=== PATIENT | female | born 1960 | race Asian ===

== ENCOUNTER → 2020-12-31 15:11 | Outpatient (BNVA) | payer OTHER, SELFPAY | PROVIDERS: PCP Internal Medicine; Visit Provider Internal Medicine | DX: E78.5 Hyperlipidemia, unspecified (principal); R07.2 Precordial pain; E11.8 Type 2 diabetes mellitus with unspecified complications; I10 Essential (primary) hypertension | CPT/HCPCS: 93005 ==

== ENCOUNTER → 2021-07-21 14:02 | Outpatient (BNVA) | payer OTHER, SELFPAY | PROVIDERS: PCP Internal Medicine; Visit Provider Internal Medicine Endocrinology, Diabetes & Metabolism | DX: E11.65 Type 2 diabetes mellitus with hyperglycemia (principal); Z79.4 Long term (current) use of insulin; Z79.84 Long term (current) use of oral hypoglycemic drugs | CPT/HCPCS: 82947 ==

== ENCOUNTER → 2021-08-25 12:17 | Outpatient (BNVA) | payer OTHER, SELFPAY | PROVIDERS: PCP Internal Medicine; Visit Provider Dietitian, Registered | DX: E11.8 Type 2 diabetes mellitus with unspecified complications (principal) | CPT/HCPCS: 97802 ==

== ENCOUNTER → 2021-09-08 09:10 | Outpatient (BNVA) | payer OTHER, SELFPAY | PROVIDERS: PCP Internal Medicine; Visit Provider Registered Nurse Diabetes Educator | DX: E11.8 Type 2 diabetes mellitus with unspecified complications (principal) | CPT/HCPCS: 99211 ==

== ENCOUNTER → 2021-09-22 12:29 | Outpatient (BNVA) | payer OTHER, SELFPAY | PROVIDERS: PCP Internal Medicine; Visit Provider Dietitian, Registered | DX: E11.8 Type 2 diabetes mellitus with unspecified complications (principal) | CPT/HCPCS: 97803 ==

== ENCOUNTER 2021-10-19 09:46 | Outpatient (REF) | payer MEDICARE, MEDICAID, SELFPAY ==
[2021-10-19 11:52] LABS: Cholesterol 125 mg/dL; HDL Cholesterol 43 mg/dL; LDL Cholesterol Calculated 70 mg/dl; Triglycerides 63 mg/dL
[2021-10-19 12:35] LABS: Creatinine Urine 173.66 mg/dL; Microalbum/Creatinine Ratio Ur 6.3 ug/mg cr
[2021-10-22 15:22] LABS: Glutamic acid decarboxylase Ab <5 IU/mL (<5)
== END 2021-10-19 09:47 | disposition home or self-care (01) ==
LOC: HO.WFDLDS 09:46
PROVIDERS: Visit Provider Internal Medicine Endocrinology, Diabetes & Metabolism
DX: E11.8 Type 2 diabetes mellitus with unspecified complications (principal)
CPT/HCPCS: 36415; 80061; 82043; 86341

== ENCOUNTER → 2021-10-21 10:25 | Outpatient (BNVA) | payer MEDICARE, MEDICAID, SELFPAY | PROVIDERS: PCP Internal Medicine; Visit Provider Internal Medicine Endocrinology, Diabetes & Metabolism | DX: E11.8 Type 2 diabetes mellitus with unspecified complications (principal) | CPT/HCPCS: 82947; 99212 ==

== ENCOUNTER → 2021-10-27 15:08 | Outpatient (BNVA) | payer MEDICARE, MEDICAID, SELFPAY | PROVIDERS: PCP Internal Medicine; Visit Provider Registered Nurse Diabetes Educator | DX: E11.8 Type 2 diabetes mellitus with unspecified complications (principal) | CPT/HCPCS: 99211 ==

== ENCOUNTER → 2021-11-24 10:14 | Outpatient (BNVA) | payer MEDICARE, MEDICAID, SELFPAY | PROVIDERS: PCP Internal Medicine; Visit Provider Registered Nurse Diabetes Educator | DX: E11.8 Type 2 diabetes mellitus with unspecified complications (principal); I10 Essential (primary) hypertension; E78.5 Hyperlipidemia, unspecified; Z79.4 Long term (current) use of insulin | CPT/HCPCS: 99211 ==

== ENCOUNTER → 2021-12-01 13:18 | Outpatient (BNVA) | payer MEDICARE, MEDICAID, SELFPAY | PROVIDERS: PCP Internal Medicine; Visit Provider Dietitian, Registered | DX: E11.8 Type 2 diabetes mellitus with unspecified complications (principal) | CPT/HCPCS: 97802 ==

== ENCOUNTER → 2022-01-22 14:17 | Outpatient (BNVA) | payer MEDICARE, MEDICAID, SELFPAY | PROVIDERS: PCP Internal Medicine; Visit Provider Registered Nurse Diabetes Educator | DX: E11.8 Type 2 diabetes mellitus with unspecified complications (principal) | CPT/HCPCS: 99211 ==

== ENCOUNTER 2022-02-23 08:40 | Outpatient (REF) | payer MEDICARE, MEDICAID, SELFPAY ==
[2022-02-23 12:13] LABS: Glucose Fasting 129 mg/dL (60-99)
== END 2022-02-23 08:41 | disposition home or self-care (01) ==
LOC: HO.WFDLDS 08:40
PROVIDERS: Visit Provider Internal Medicine Endocrinology, Diabetes & Metabolism
DX: E11.8 Type 2 diabetes mellitus with unspecified complications (principal)
CPT/HCPCS: 36415; 82947

== ENCOUNTER → 2022-02-24 15:21 | Outpatient (BNVA) | payer MEDICARE, MEDICAID, SELFPAY | PROVIDERS: PCP Internal Medicine; Visit Provider Internal Medicine Endocrinology, Diabetes & Metabolism | DX: E11.8 Type 2 diabetes mellitus with unspecified complications (principal); Z79.84 Long term (current) use of oral hypoglycemic drugs; Z79.4 Long term (current) use of insulin | CPT/HCPCS: 82947; 83036; 99212 ==

== ENCOUNTER → 2022-03-05 14:09 | Outpatient (BNVA) | payer MEDICARE, MEDICAID, SELFPAY | PROVIDERS: PCP Internal Medicine; Visit Provider Registered Nurse Diabetes Educator | DX: E11.8 Type 2 diabetes mellitus with unspecified complications (principal); I10 Essential (primary) hypertension; E78.5 Hyperlipidemia, unspecified | CPT/HCPCS: 99211 ==

== ENCOUNTER → 2022-04-06 14:12 | Outpatient (BNVA) | payer MEDICARE, MEDICAID, SELFPAY | PROVIDERS: PCP Internal Medicine; Visit Provider Registered Nurse Diabetes Educator | DX: E11.8 Type 2 diabetes mellitus with unspecified complications (principal) | CPT/HCPCS: 99211 ==

== ENCOUNTER 2022-05-05 10:41 | Outpatient (REF) | payer MEDICARE, MEDICAID, SELFPAY ==
[2022-05-05 14:20] LABS: Anion Gap 18 (12-20); Blood Urea Nitrogen 18 mg/dL (9-16); Calcium 10.3 mg/dL (8.4-10.2); Carbon Dioxide 22 mmol/L (22-29); Chloride 105 mmol/L (96-108); Estimated Glomerular Filt Rate 57; Glucose Random 134 mg/dL (60-115); Potassium 4.5 mmol/L (3.3-5.1); Sodium 140 mmol/L (135-145)
== END 2022-05-05 10:42 | disposition home or self-care (01) ==
LOC: HO.WFDLDS 10:41
PROVIDERS: Visit Provider Internal Medicine Endocrinology, Diabetes & Metabolism
DX: E11.8 Type 2 diabetes mellitus with unspecified complications (principal)
CPT/HCPCS: 36415; 80048

== ENCOUNTER → 2022-05-06 15:17 | Outpatient (BNVA) | payer MEDICARE, MEDICAID, SELFPAY | PROVIDERS: PCP Internal Medicine; Visit Provider Internal Medicine Endocrinology, Diabetes & Metabolism | DX: E11.8 Type 2 diabetes mellitus with unspecified complications (principal); Z79.85 Long-term (current) use of injectable non-insulin antidiabetic drugs; Z79.4 Long term (current) use of insulin; Z79.84 Long term (current) use of oral hypoglycemic drugs | CPT/HCPCS: 82947; 99212 ==

== ENCOUNTER → 2022-07-05 09:10 | Outpatient (BNVA) | payer MEDICARE, MEDICAID, SELFPAY | PROVIDERS: PCP Internal Medicine; Visit Provider Dietitian, Registered | DX: E11.8 Type 2 diabetes mellitus with unspecified complications (principal); Z71.3 Dietary counseling and surveillance | CPT/HCPCS: 97803 ==

== ENCOUNTER → 2022-08-16 08:03 | Outpatient (BNVA) | payer MEDICARE, MEDICAID, SELFPAY | PROVIDERS: PCP Internal Medicine; Visit Provider Registered Nurse Diabetes Educator | DX: E11.8 Type 2 diabetes mellitus with unspecified complications (principal); Z79.4 Long term (current) use of insulin | CPT/HCPCS: 99211 ==

== ENCOUNTER → 2022-09-01 12:21 | Outpatient (BNVA) | payer MEDICARE, MEDICAID, SELFPAY | PROVIDERS: PCP Internal Medicine; Visit Provider Internal Medicine Endocrinology, Diabetes & Metabolism | DX: E11.8 Type 2 diabetes mellitus with unspecified complications (principal) | CPT/HCPCS: 82947; 83036; 99212 ==

== ENCOUNTER 2022-11-01 10:30 | Outpatient (AMB) | payer MEDICARE, MEDICAID, SELFPAY ==
[2022-11-01 10:36] VITALS: BMI 21.3
--- NOTE | 2022-11-01 10:36 | A.OFFVIS_ITS ---
Intake VS Expanded 11/01/22 10:36 Height 5 ft 1 in Weight 112 lb 14.027 oz BMI 21.3 Intake Visit Reasons: T2DM Allergies alogliptin Allergy (Unknown, Verified 09/01/22 12:35) contipation sitagliptin [Januvia] Allergy (Unknown, Verified 09/01/22 12:35) vomiting HPI Nutrition Presentation Details Pt presents for MNT for Type 2 DM Appt was conducted via interpreting services language : LAnguage Tamil, document preparer microfilming # [id number] Pt reports having decreased appetite and also reports she was recently in [place] and was more physically active Pt reports typical meal B: Roti with butter and tea L: rice, chicken ,soup D: same as lunch or chicken and salad snck: fruit or crackers denies taking MVI, iron suppl or b12 supplement Most Recent Diabetes Results: Creatinine 0.98 mg/dL (0.5-1.4) 05/05/22 Blood Urea Nitrogen 18 mg/dL (9-16) H 05/05/22 Sodium 140 mmol/L (135-145) 05/05/22 Potassium 4.5 mmol/L (3.3-5.1) 05/05/22 Chloride 105 mmol/L (96-108) 05/05/22 Carbon Dioxide 22 mmol/L (22-29) 05/05/22 Calcium 10.3 mg/dL (8.4-10.2) H 05/05/22 [facility] Medical History (Updated 11/02/22 @ 13:56 by Kaitlynn Milton, RD, LDN) Essential hypertension Hyperlipidemia, unspecified Type 2 diabetes mellitus with unspecified complications Surgical History No pertinent past surgical history Family History Mother No problems noted. Father Diabetes Brother Diabetes Sister Diabetes Social History Household Members: Family Household Members Other:: daughter Alcohol intake: current Alcohol intake frequency: does not drink Patient Tobacco Use Status: Never used Tobacco Assessment & Plan Assessment & Plan (1) Type 2 diabetes mellitus with unspecified complications: Comment: RECOMMEND MONITORING for b12 deficiency and Iron - related to decreased appetite, hx of b12 def and program officer use of metformin for DM Code(s): E11.8 - Type 2 diabetes mellitus with unspecified complications Plan: Review 1500 truman meal plan, keep hydrated, + 250 truman by increasing food sources of b vitamins/iron in diet ? Used wt : 58 kg (weight remains the same as last visit in 07/2021, 12/01/21) Est kcal as per MSJ: 1500 (40% carb, 30% fat/prot) Est fluid needs: 1450 ml/d (25 ml/kg bw) Rec fiber: increase to 8-10 g per day and gradually increase to 25 g/d or as tolerated Rec Na: < 2000 mg /d Educate patient on: (R= Reviewed, V = verbalizes understanding N/R= Needs review N/A= not applicable) * Food sources of carbohydrates and serving adequate serving sizes : R * Difference between complex carbohydrates and simple carbohydrates, role of fiber: R * Differences between fats (MUFA/PUFA/saturated fats, trans fats) and food sources of various fats: R * Food sources of sodium and salt and healthy modifications for heart health and kidney health: R * Vitamins and minerals: R V * How to interpret food labels: N/R * Healthy Plate method concept: R , V * Physical activity: benefits and precaution: R Patient Instructions: Have a nutritional supplement once a day (glucerna samples provided) Include 2 servings of protein per day at meal time and or as snack (chicken, thomason lentils, yogurt, eggs, nutritional yeast, iron rich sources of foods as discussed ) discuss monitoring labs for b12 and iron deficiency Coding Level of Care Code Nutr Indiv Subseq (21929) Diagnoses Type 2 diabetes mellitus with unspecified complications E11.8 Time Spent (min) 30
== END 2022-11-01 11:17 | disposition home or self-care (01) ==
PROVIDERS: PCP Internal Medicine; Referring Provider Internal Medicine Endocrinology, Diabetes & Metabolism; Visit Provider Dietitian, Registered
DX: E11.8 Type 2 diabetes mellitus with unspecified complications (principal)

== ENCOUNTER → 2022-11-01 10:30 | Outpatient (BNVA) | payer MEDICARE, MEDICAID, SELFPAY | PROVIDERS: Visit Provider Dietitian, Registered | DX: E11.8 Type 2 diabetes mellitus with unspecified complications (principal); Z79.84 Long term (current) use of oral hypoglycemic drugs; Z71.3 Dietary counseling and surveillance | CPT/HCPCS: 97803 ==

== ENCOUNTER 2023-01-04 12:38 | Outpatient (AMB) | payer MEDICARE, MEDICAID, SELFPAY ==
--- NOTE | 2023-01-04 12:45 | MHC.OFFVIS ---
Intake Vital Signs 01/04/23 13:01 Weight 112 lb BP 98/58 L Blood Pressure Location Lt brachial Position Sitting Pulse 73 Pulse Source Pulse Oximeter Intake Visit Reasons: f/u Type 2 DM, appt confirmed Intake Note: Patient present today to follow up on Type 2 Diabetes Mellitus. Patient receives DME supplies through: [facility] Last Diabetic Eye exam: 10/2022 Last Podiatry Visit: 10/2022 Random Glucose: 86 mg/dl HgA1C: 7.4% Cider Press Operator Required: Yes Cider Press Operator Name: Dione [email or web address] Information Interpreted: non-clinical & clinical Accompanied by: Self / Same As Patient Allergies alogliptin Allergy (Unknown, Verified 01/04/23 13:06) contipation sitagliptin [Januvia] Allergy (Unknown, Verified 01/04/23 13:06) vomiting Medication List - Last Reconciled 01/04/23 by Aravind Goodman MD atorvastatin 80 mg PO DAILY blood sugar diagnostic (Predixion SoftwareStyle Test strips) As directed blood-glucose meter,continuous (DexMZL Shine Cleaning G6 Peer Financial Counselor) As directed blood-glucose sensor (Dexcom G6 Sensor device) As directed blood-glucose transmitter (Dexcom G6 Transmitter device) As directed cyanocobalamin (vitamin B-12) 1,000 mcg PO DAILY ferrous sulfate 325 mg PO DAILY gabapentin mg PO glucagon 3 mg/actuation (Baqsimi) 3 mg intranasal ONCE insulin glargine (Lantus Solostar U-100 Insulin) 6 units subcut QPM insulin lispro (Humalog KwikPen (U-100) Insulin) 13 units subcut TID lancets (FreeStyle Lancets) As directed 3 times a day latanoprost 0.005% 1 drp ophthalmic (eye) lisinopril 10 mg PO DAILY loratadine 10 mg PO DAILY PRN metformin 1,000 mg PO BID omeprazole 40 mg PO DAILY pen needle, diabetic (BD Chanell 2nd Gen Pen Needle) As directed once a day rosuvastatin 40 mg PO DAILY HPI HPI Comments History of Present Illness Details 61 YO F who is seen in consultation for T2DM at the request of PCP. Initially diagnosed with T2DM in 20 yrs . Was initially started on treatment with metformin . Current regimen metformin 1000 mg BID Lantus 12 units Humalog 3-4 units Ac 6 units prelunch and 4 units predinner Trulicity 0.75 mg Qwkly-discontinue Dexcom download shows average glucose to be 192 and standard deviation of 53. 49% of blood sugars are in range with 35% hyperglycemia and 16% very hyperglycemic and no hypoglycemia. She is using the sensor 93% of the time. Pattern shows elevation post breakfast, post lunch and post dinner Reports very rare low sugars once- twice a mo . Treats lows with sugar water . Checks sugar after to ensure it is rising. Treats according to rule of 15's. Family history of T2DM in father and siblings . Has eyes checked yearly, last eye exam 1 mos ago , denies retinopathy. To see optho on 05/17/22 Denies neuropathy, ,does not sees podiatry. Denies nephropathy, on LEIF/ARB. Has HLD, on statin. Denies CAD. Not Had diabetes education. [facility] Medical History (Updated 11/02/22 @ 13:[address], LDN) Hyperlipidemia, unspecified Essential hypertension Type 2 diabetes mellitus with unspecified complications Surgical History No pertinent past surgical history Family History Mother No problems noted. Father Diabetes Brother Diabetes Sister Diabetes Social History Household Members: Family Household Members Other:: daughter Alcohol intake: current Alcohol intake frequency: does not drink Patient Tobacco Use Status: Never used Tobacco Physical Exam Vital Signs: Last Vital Signs Pulse 73 01/04/23 13:01 BP 98/58 L 01/04/23 13:01 Absence of Cushingoid features. Absence of acromegalic features. Neck exam reveals nl size thyroid about 15 gms. No thyroid nodules palpable. No carotid bruits present. Lungs CTA. Heart S1 S2, Reg R/R. No M/R/ G. Skin exam reveals absence of vitiligo or acanthosis nigricans. Abdominal exam reveals Soft NT/ND with NA BS. No organomegaly present. Neck Other: . Extrem Other: Visual exam of foot performed. No ulcerations or open lesions. No onchomycosis, no callouses.Pulses 2 + distally Sensation intact to monofilament exam. Vibratory sensation sensed is intact with 128 Hz tuning fork Results Reviewed Results Reviewed: 01/04/23 13:09 Glucose, Whole Blood Routine Laboratory Last Values Glucose (Clinic) 86 mg/dL (60-115) 01/04/23 13:09 Assessment & Plan Assessment & Plan (1) Type 2 diabetes mellitus with unspecified complications: Comment: RECOMMEND MONITORING for b12 deficiency and Iron - related to decreased appetite, hx of b12 def and senior living use of metformin for DM Code(s): E11.8 - Type 2 diabetes mellitus with unspecified complications Plan: This is a 62-year-old female with a history of diabetes being treated with basal- insulin and metformin with good improving glycemic control and no known microvascular or macrovascular complications. The plan is increase the Humalog to 6-8 units before breakfast, 10 units before lunch and 8 units before dinner. Patient will follow-up with the staff educator Orders: Orders AMB Hemoglobin A1c Today E11.8 - Type 2 diabetes mellitus with unspecified complications Coding Level of Care Code Est Pt Level 4 (58772) Diagnoses Type 2 diabetes mellitus with unspecified complications E11.8
[2023-01-04 13:01] VITALS: BP 98/58; PULSE 73
== END 2023-01-04 13:27 | disposition home or self-care (01) ==
LOC: HO.ENCR 12:38
PROVIDERS: PCP Internal Medicine; Visit Provider Internal Medicine Endocrinology, Diabetes & Metabolism
DX: E11.8 Type 2 diabetes mellitus with unspecified complications (principal)
CPT/HCPCS: 99214

== ENCOUNTER → 2023-01-04 12:38 | Outpatient (BNVA) | payer MEDICARE, MEDICAID, SELFPAY | PROVIDERS: PCP Internal Medicine; Visit Provider Internal Medicine Endocrinology, Diabetes & Metabolism | DX: E11.8 Type 2 diabetes mellitus with unspecified complications (principal) | CPT/HCPCS: 82947; 83036; 99212 ==

== ENCOUNTER 2023-02-21 15:30 | Outpatient (AMB) | payer MEDICARE, MEDICAID, SELFPAY ==
--- NOTE | 2023-02-21 15:56 | A.OFFVIS_ITS ---
Intake Intake Visit Reasons: DM Car Pusher Required: Yes Car Pusher Language: [facility] Car Pusher Name: Wen [id number] Accompanied by: Self / Same As Patient Allergies alogliptin Allergy (Unknown, Verified 01/04/23 13:06) contipation sitagliptin [Januvia] Allergy (Unknown, Verified 01/04/23 13:06) vomiting HPI Comprehensive Diabetes Asmnt Most Recent Diabetes Results: Microalb/Creat Ratio 6.3 ug/mg cr 10/19/21 Cholesterol 125 mg/dL 10/19/21 HDL Cholesterol 43 mg/dL 10/19/21 Triglycerides 63 mg/dL 10/19/21 Creatinine 0.98 mg/dL (0.5-1.4) 05/05/22 Blood Urea Nitrogen 18 mg/dL (9-16) H 05/05/22 Sodium 140 mmol/L (135-145) 05/05/22 Potassium 4.5 mmol/L (3.3-5.1) 05/05/22 Chloride 105 mmol/L (96-108) 05/05/22 Carbon Dioxide 22 mmol/L (22-29) 05/05/22 Calcium 10.3 mg/dL (8.4-10.2) H 05/05/22 [facility] Medical History (Updated 11/02/22 @ 13:56 by Kaitlynn Milton, RD, LDN) Hyperlipidemia, unspecified Essential hypertension Type 2 diabetes mellitus with unspecified complications Surgical History No pertinent past surgical history Family History Mother No problems noted. Father Diabetes Brother Diabetes Sister Diabetes Household Members: Family Household Members Other:: daughter Alcohol intake: current Alcohol intake frequency: does not drink Patient Tobacco Use Status: Never used Tobacco Assessment & Plan Assessment & Plan (1) Type 2 diabetes mellitus with unspecified complications: Comment: RECOMMEND MONITORING for b12 deficiency and Iron - related to decreased appetite, hx of b12 def and nursing home use of metformin for DM Code(s): E11.8 - Type 2 diabetes mellitus with unspecified complications Plan: Personal Continuous Glucose Monitor: Patients CGM information reviewed Reviewed patient's sensor data: Hypoglycemia: ? 0% Hyperglycemia:? 53% Time in Range:? 47% Average glucose for the last 2 weeks? 194 mg/dL Patient is taking Lantus 6 units daily Humalog 6-8 units with breakfast 10 units with lunch 8 units with dinner Patient reports Dr. Goodman had recommended she increase in her time Humalog to 10 units but she is concerned about glucose dropping overnight. Reviewed with patient foods that contain carbohydrates, patient had been concerned because while using Trulicity she had lost 10 lb and she has been trying to gain weight back since stopping the Trulicity. Reports she has increased carbohydrate portions. Recommended to patient to increase healthy fats and proteins if trying to regain weight Add fiber and protein to carbohydrate choice Reviewed how to interpret trend arrows Reminded patient that to check finger sticks if symptoms do not match sensor reading. Discussed lag time between finger stick and sensor data.? Patient able to insert sensor independently at home without issue.? Patient Instructions: Patient will follow-up with parent educator in 5 months Coding Level of Care Code Est Pt Level 1 (29422) Diagnoses Type 2 diabetes mellitus with unspecified complications E11.8
== END 2023-02-21 16:02 | disposition home or self-care (01) ==
PROVIDERS: PCP Internal Medicine; Visit Provider Registered Nurse Diabetes Educator
DX: E11.8 Type 2 diabetes mellitus with unspecified complications (principal)

== ENCOUNTER → 2023-02-21 15:30 | Outpatient (BNVA) | payer MEDICARE, MEDICAID, SELFPAY | PROVIDERS: PCP Internal Medicine; Visit Provider Registered Nurse Diabetes Educator | DX: E11.9 Type 2 diabetes mellitus without complications (principal); I10 Essential (primary) hypertension; E78.5 Hyperlipidemia, unspecified; Z79.85 Long-term (current) use of injectable non-insulin antidiabetic drugs | CPT/HCPCS: 99211 ==

== ENCOUNTER 2023-04-19 12:57 | Outpatient (REF) | payer MEDICARE, MEDICAID, SELFPAY ==
--- NOTE | ~2023-04-19 | XR_ITS ---
EXAMINATION: XR KNEE, LEFT XR KNEE AP STANDING CLINICAL INFORMATION: Pain. COMPARISON: None available. TECHNIQUE: Lateral and axial of the left knee were obtained. AP bilateral standing view of the knees was obtained. FINDINGS: No fracture or joint effusion. Alignment is anatomic. Joint spaces are maintained. There are 2 small round soft tissue calcifications in the posterior calf which may be related to venous insufficiency. No varus or valgus configuration is seen bilaterally. A tiny enthesophyte is incidentally seen of the medial aspect of the distal right femoral shaft towards the adductor insertion. XR/XR knee LT 2V IMPRESSION: Unremarkable left knee and AP standing bilateral knee radiographs.
--- NOTE | ~2023-04-19 | XR_ITS ---
EXAMINATION: XR KNEE, LEFT XR KNEE AP STANDING CLINICAL INFORMATION: Pain. COMPARISON: None available. TECHNIQUE: Lateral and axial of the left knee were obtained. AP bilateral standing view of the knees was obtained. FINDINGS: No fracture or joint effusion. Alignment is anatomic. Joint spaces are maintained. There are 2 small round soft tissue calcifications in the posterior calf which may be related to venous insufficiency. No varus or valgus configuration is seen bilaterally. A tiny enthesophyte is incidentally seen of the medial aspect of the distal right femoral shaft towards the adductor insertion. XR/XR knee standing BI IMPRESSION: Unremarkable left knee and AP standing bilateral knee radiographs.
== END 2023-04-19 12:58 | disposition home or self-care (01) ==
LOC: HO.HOSX 12:57
PROVIDERS: Visit Provider Physician Assistant
DX: M25.562 Pain in left knee (principal); R20.2 Paresthesia of skin
CPT/HCPCS: 73560; 73565; 99202

== ENCOUNTER 2023-04-19 14:38 | Outpatient (AMB) | payer MEDICARE, MEDICAID, SELFPAY ==
--- NOTE | 2023-04-19 14:53 | A.OFFVIS_ITS ---
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 Patient report ongoing pain for 6 months and it is getting worse. She states that her pain is on the lateral aspect of the knee. Patient reports when she kneels down her pain is worse. No hx of injections/PT. No hx of pain relief medication. Allergies alogliptin Allergy (Unknown, Verified 04/19/23 15:02) contipation sitagliptin [Januvia] Allergy (Unknown, Verified 04/19/23 15:02) vomiting HPI BUSINESS ASSISTANT- Lt Knee pain 2 HPI Details 62-year-old female who presents in the [facility] today, as a new patient, for an evaluation of left knee pain. The patient reports ongoing left knee pain for 6 months which has increased with time. She claims her pain is on the lateral aspect of the left knee. She reports increased pain with kneeling. She denies any prior treatment for her knee pain. The patient?s main complaint is numbness and tingling which increases when kneeling or applying pressure to the front aspect of the left knee. She states the numbness and tingling are present at all times. Patient has a significant medical history of diabetes mellitus. [facility] Medical History (Updated 04/19/23 @ 15:13 by Yari Higuera PA-C) Hyperlipidemia, unspecified Essential hypertension Type 2 diabetes mellitus with unspecified complications Surgical History No pertinent past surgical history Family History Mother No problems noted. Father Diabetes Brother Diabetes Sister Diabetes Social History Household Members: Family Household Members Other:: daughter Alcohol intake: current Alcohol intake frequency: does not drink Patient Tobacco Use Status: Never used Tobacco Review of Systems Const All systems reviewed & are unremarkable except as noted in HPI and below Physical Exam Const General: cooperative and no acute distress Orientation/consciousness: patient oriented x3 Resp Effort & Inspection: normal respiratory effort and able to speak in complete sentences Cardio Peripheral pulses: Peripheral pulses 2+ throughout Skin General skin exam: no rashes or lesions noted Neuro General: patient oriented x3 Extrem Other: Left knee: Normal to inspection. No ecchymosis, erythema, or joint effusion. No tenderness to palpation to the medial or lateral joint lines. Full knee extension and flexion. Negative Zana's. Negative anterior drawer. Reports numbness on the lateral aspect of the left knee extending down just past the fibular head. Assessment & Plan Assessment & Plan (1) Knee pain, left: Code(s): M25.562 - Pain in left knee (2) Paresthesia of skin: Code(s): R20.2 - Paresthesia of skin Plan Ms. Avila is a 62-year-old female who presents in the office today, as a new patient, for an evaluation of left knee pain. The patient reports ongoing left knee pain for 6 months which has increased with time. She claims her pain is on the lateral aspect of the left knee. She reports increased pain with kneeling. She denies any prior treatment for her knee pain. The patient?s main complaint is numbness and tingling which increases when kne eling or applying pressure to the front aspect of the left knee. She states the numbness and tingling are present at all times. Patient has a significant medical history of diabetes mellitus. The patient will be referred for further evaluation of the left knee numbness to Podiatry. Follow up will be PRN, or sooner if needed. X-rays of the left knee which were obtained while in the office today and were reviewed by me, Yari Higuera PA-C, revealed arthritic changes. Orders: Orders XR knee standing BI Today M25.569 - Pain in unspecified knee XR knee LT 2V Today M25.569 - Pain in unspecified knee Patient Instructions: cribed for Yari Higuera PA-C by Tawny Sethi medical staff services coordinator, on 04/19/2023 at 2:44 pm, EST. Coding Level of Care Code New Pt Level 4 (23146) Diagnoses Knee pain, left M25.562 Paresthesia of skin R20.2
== END 2023-04-19 15:18 | disposition home or self-care (01) ==
PROVIDERS: PCP Internal Medicine; Visit Provider Physician Assistant
DX: M25.562 Pain in left knee (principal); R20.2 Paresthesia of skin
CPT/HCPCS: 99203

== ENCOUNTER 2023-05-05 09:12 | Outpatient (REF) | payer MEDICARE, MEDICAID, SELFPAY ==
[2023-05-05 10:34] LABS: Anion Gap 13 (12-20); Blood Urea Nitrogen 17 mg/dL (9-16); Calcium 10.3 mg/dL (8.4-10.2); Carbon Dioxide 26 mmol/L (22-29); Chloride 106 mmol/L (96-108); Estimated Glomerular Filt Rate 56; Glucose Random 118 mg/dL (60-115); Potassium 4.3 mmol/L (3.3-5.1); Sodium 141 mmol/L (135-145)
== END 2023-05-05 09:13 | disposition home or self-care (01) ==
LOC: HO.LAB 09:12
PROVIDERS: PCP Internal Medicine; Visit Provider Internal Medicine Endocrinology, Diabetes & Metabolism
DX: E11.8 Type 2 diabetes mellitus with unspecified complications (principal)
CPT/HCPCS: 36415; 80048; 97803

== ENCOUNTER 2023-05-05 09:12 | Outpatient (AMB) | payer MEDICARE, MEDICAID, SELFPAY ==
[2023-05-05 10:35] VITALS: BMI 22.8
--- NOTE | 2023-05-05 10:35 | A.OFFVIS_ITS ---
Intake VS Expanded 05/05/23 10:35 Height 5 ft 1 in Weight 120 lb 7.8 oz BMI 22.8 Intake Visit Reasons: t2dm/LVM Allergies alogliptin Allergy (Unknown, Verified 04/19/23 15:02) contipation sitagliptin [Januvia] Allergy (Unknown, Verified 04/19/23 15:02) vomiting HPI Nutrition Presentation Details Pt presents for MNT f/u for t2DM. Pt reports having good appetite. Reports having 2-3 meals/day following healthy plate method Most Recent Diabetes Results: Creatinine 1.00 mg/dL (0.5-1.4) 05/05/23 Blood Urea Nitrogen 17 mg/dL (9-16) H 05/05/23 Sodium 141 mmol/L (135-145) 05/05/23 Potassium 4.3 mmol/L (3.3-5.1) 05/05/23 Chloride 106 mmol/L (96-108) 05/05/23 Carbon Dioxide 26 mmol/L (22-29) 05/05/23 Calcium 10.3 mg/dL (8.4-10.2) H 05/05/23 [facility] Medical History (Updated 05/09/23 @ 14:26 by Kaitlynn Milton, RD, LDN) Hyperlipidemia, unspecified Essential hypertension Type 2 diabetes mellitus with unspecified complications Surgical History No pertinent past surgical history Family History Mother No problems noted. Father Diabetes Brother Diabetes Sister Diabetes Social History Household Members: Family Household Members Other:: daughter Alcohol intake: current Alcohol intake frequency: does not drink Patient Tobacco Use Status: Never used Tobacco Assessment & Plan Assessment & Plan (1) Type 2 diabetes mellitus with unspecified complications: Code(s): E11.8 - Type 2 diabetes mellitus with unspecified complications Plan: Review 1600 truman meal plan, ? Used wt : 58 kg (weight remains the same as last visit in 07/2021, 12/01/21), 55kg (04/2023) Est kcal as per MSJ: 1500 (40% carb, 30% fat/prot) Est fluid needs: 1450 ml/d (25 ml/kg bw) Rec fiber: increase to 8-10 g per day and gradually increase to 25 g/d or as tolerated Rec Na: < 2000 mg /d Educate patient on: (R= Reviewed, V = verbalizes understanding N/R= Needs review N/A= not applicable) * Food sources of carbohydrates and serving adequate serving sizes : R * Difference between complex carbohydrates and simple carbohydrates, role of fiber: R * Differences between fats (MUFA/PUFA/saturated fats, trans fats) and food sources of various fats: R * Food sources of sodium and salt and healthy modifications for heart health and kidney health: R * Vitamins and minerals: R V * How to interpret food labels: N/R * Healthy Plate method concept: R , V * Physical activity: benefits and precaution: R Patient Instructions: continue following healthy plate method choose omega 3 sources of foods (seeds, nuts, fish) keep hydrated by having water with meals/snacks Coding Level of Care Code Nutr Indiv Subseq (14303) Diagnoses Type 2 diabetes mellitus with unspecified complications E11.8 Time Spent (min) 20
== END 2023-05-05 11:08 | disposition home or self-care (01) ==
PROVIDERS: PCP Internal Medicine; Visit Provider Dietitian, Registered
DX: E11.8 Type 2 diabetes mellitus with unspecified complications (principal)

== ENCOUNTER 2023-05-10 14:18 | Outpatient (AMB) | payer MEDICARE, MEDICAID, SELFPAY ==
[2023-05-10 14:19] VITALS: BP 110/62; PULSE 74; BMI 23.0
--- NOTE | 2023-05-10 14:19 | A.OFFVIS_ITS ---
Intake Vital Signs 05/10/23 14:19 Height 5 ft 1 in Weight 121 lb 11.123 oz BMI 23.0 BP 110/62 Blood Pressure Location Lt brachial Position Sitting Pulse 74 Pulse Source Pulse Oximeter Intake Visit Reasons: DM-confirmed Intake Note: Patient present today to follow up on Type 2 Diabetes Mellitus. Patient receives DME supplies through: [facility] Last Diabetic Eye exam:02/2023 Last Podiatry Visit: 03/2023 Random Glucose: 140 mg/dl HgA1C: 7.1% Medical Staff Services Coordinator Required: Yes Medical Staff Services Coordinator Language: Reid Medical Staff Services Coordinator Name: Wen [id number] Information Interpreted: non-clinical & clinical Accompanied by: Self / Same As Patient Allergies alogliptin Allergy (Unknown, Verified 05/10/23 14:35) contipation sitagliptin [Januvia] Allergy (Unknown, Verified 05/10/23 14:35) vomiting HPI HPI Comments History of Present Illness Details 61 YO F who is seen in consultation for T2DM at the request of PCP. Initially diagnosed with T2DM in 20 yrs . Was initially started on treatment with metformin . Current regimen metformin 1000 mg BID Lantus 12 units Humalog 13 units aC Trulicity 0.75 mg Qwkly-discontinue Dexcom download shows average glucose to be 177 and standard deviation of 55. 62% of blood sugars are in range with 28% hyperglycemia and 9% very hyperglycemic and no hypoglycemia. She is using the sensor 79% of the time. Pattern shows elevation post breakfast, and post dinner Reports very rare low sugars once- twice a mo . Treats lows with sugar water . Checks sugar after to ensure it is rising. Treats according to rule of 15's. Family history of T2DM in father and siblings . Has eyes checked yearly, last eye exam 2 mos , denies retinopathy. Denies neuropathy, ,does not sees podiatry. Denies nephropathy, on LEIF/ARB. Has HLD, on statin. Denies CAD. Not Had diabetes education. [facility] Medical History (Updated 05/09/23 @ 14:26 by Kaitlynn Milton, RD, LDN) Hyperlipidemia, unspecified Essential hypertension Type 2 diabetes mellitus with unspecified complications Surgical History No pertinent past surgical history Family History Mother No problems noted. Father Diabetes Brother Diabetes Sister Diabetes Social History Household Members: Family Household Members Other:: daughter Alcohol intake: current Alcohol intake frequency: does not drink Patient Tobacco Use Status: Never used Tobacco Physical Exam Vital Signs: Last Vital Signs Pulse 74 05/10/23 14:19 BP 110/62 05/10/23 14:19 BMI result Body Mass Index 23.0 Absence of Cushingoid features. Absence of acromegalic features. Neck exam reveals nl size thyroid about 15 gms. No thyroid nodules palpable. No carotid bruits present. Lungs CTA. Heart S1 S2, Reg R/R. No M/R/ G. Skin exam reveals absence of vitiligo or acanthosis nigricans. Abdominal exam reveals Soft NT/ND with NA BS. No organomegaly present. Neck Other: . Extrem Other: Visual exam of foot performed. No ulcerations or open lesions. No onchomycosis, no callouses.Pulses 2 + distally Sensation intact to monofilament exam. Vibratory sensation sensed is intact with 128 Hz tuning fork Assessment & Plan Assessment & Plan (1) Type 2 diabetes mellitus with unspecified complications: Code(s): E11.8 - Type 2 diabetes mellitus with unspecified complications Plan: This is a 62-year-old female with a history of diabetes being treated with basal- insulin and metformin with good improving glycemic control and no known microvascular or macrovascular complications. The plan is increase the Humalog to 16 units before beforemeals particularly if high carbohydrate meal like rice . At this point, pt can f/u with PCP and return gaytan to endocrinology if HBA1C deterioates. . Also noted was a slightly increased calcium level the patient should follow up with her primary care provider regarding this. This was explained via help of the olericulture professor. . Orders: Orders AMB Hemoglobin A1c Today E11.8 - Type 2 diabetes mellitus with unspecified complications Coding Level of Care Code Est Pt Level 4 (35145) Diagnoses Type 2 diabetes mellitus with unspecified complications E11.8
[2023-05-10 15:06] LABS: Glucose, Whole Blood 140 mg/dL (60-115)
== END 2023-05-10 15:01 | disposition home or self-care (01) ==
PROVIDERS: PCP Internal Medicine; Visit Provider Internal Medicine Endocrinology, Diabetes & Metabolism
DX: E11.8 Type 2 diabetes mellitus with unspecified complications (principal)
CPT/HCPCS: 99214

== ENCOUNTER → 2023-05-10 14:18 | Outpatient (BNVA) | payer MEDICARE, MEDICAID, SELFPAY | PROVIDERS: PCP Internal Medicine; Visit Provider Internal Medicine Endocrinology, Diabetes & Metabolism | DX: E11.8 Type 2 diabetes mellitus with unspecified complications (principal); Z79.84 Long term (current) use of oral hypoglycemic drugs; Z79.4 Long term (current) use of insulin; Z79.85 Long-term (current) use of injectable non-insulin antidiabetic drugs | CPT/HCPCS: 82947; 83036; 99212 ==

== ENCOUNTER 2023-05-12 07:52 | Outpatient (REF) | payer MEDICARE, MEDICAID, SELFPAY ==
[2023-05-12 10:13] LABS: MANUAL DIFF FLAG NO
[2023-05-12 10:23] LABS: Basophils Percent Auto 0.9 % (0-2); Eosinophils Absolute Auto 0.3 X10*3/uL (0.0-0.4); Eosinophils Percent Auto 5.8 % (0-4); Hematocrit 34.2 % (37.0-47.0); Lymphocytes Absolute Auto 2.1 X10*3/uL (1.2-4.9); Lymphocytes Percent Auto 47.1 % (20-40); Mean Corpuscular HGB Conc 32.2 g/dl (31.0-35.0); Mean Corpuscular Hemoglobin 25.8 pg (27.0-33.0); Mean Corpuscular Volume 80.3 fL (80.0-98.0); Mean Platelet Volume 11.5 fL (9.4-12.3); Monocytes Absolute Auto 0.5 X10*3/uL (0.1-1.2); Neutrophils Absolute Auto 1.6 x10*3/uL (2.0-8.3); Neutrophils Percent Auto 36.2 % (45-73); Platelet Count 208 X10*3/uL (160-400); Red Blood Count 4.26 X10*6/uL (4.20-5.50); Red Cell Distribution Width 13.2 % (11.0-16.0); White Blood Count 4.5 X10*3/uL (4.8-10.8)
[2023-05-12 10:34] LABS: Estimated Average Glucose 157 mg/dL; Hemoglobin A1c % 7.1 % (<6.0)
[2023-05-12 10:41] LABS: Creatinine Urine 113.16 mg/dL; Microalbum/Creatinine Ratio Ur 4.4 ug/mg cr (<30)
[2023-05-12 10:47] LABS: Parathyroid Hormone Intact 110.4 pg/mL (8.7-77.1)
[2023-05-12 10:49] LABS: Alanine Aminotransferase 10 U/L (0-31); Albumin Level 4.4 g/dL (3.5-5.0); Alkaline Phosphatase 49 U/L (39-117); Anion Gap 14 (12-20); Aspartate Amino Transferase 16 U/L (5-31); Bilirubin Total 0.4 mg/dL (0.0-1.0); Blood Urea Nitrogen 15 mg/dL (9-16); Carbon Dioxide 25 mmol/L (22-29); Chloride 107 mmol/L (96-108); Cholesterol 119 mg/dL (<200); Estimated Glomerular Filt Rate 56; Glucose Random 118 mg/dL (60-115); HDL Cholesterol 48 mg/dL (>40); LDL Cholesterol Calculated 59 mg/dL (<100); Potassium 4.2 mmol/L (3.3-5.1); Sodium 142 mmol/L (135-145); Total Protein 7.2 g/dL (6.5-8.0); Triglycerides 63 mg/dL (<150)
[2023-05-12 11:05] LABS: Ferritin 9 ng/mL (10-250); Thyroid Stimulating Hormone 3.09 uIU/mL (0.32-4.0); Vitamin D 25-OH Total 27.5 ng/mL (>30)
[2023-05-12 11:07] LABS: Vitamin B12 511 pg/mL (200-900)
== END 2023-05-12 07:53 | disposition home or self-care (01) ==
LOC: HO.10HDL 07:52
PROVIDERS: Visit Provider Internal Medicine
DX: D64.89 Other specified anemias (principal); E11.65 Type 2 diabetes mellitus with hyperglycemia; E83.52 Hypercalcemia; J02.9 Acute pharyngitis, unspecified; R30.0 Dysuria
CPT/HCPCS: 36415; 80053; 80061; 82043; 82306; 82570; 82607; 82728; 83036; 83970; 84443; 85025; 87086

== ENCOUNTER 2023-05-25 10:24 | Outpatient (AMB) | payer MEDICARE, MEDICAID, SELFPAY ==
--- NOTE | 2023-05-25 10:20 | A.OFFVIS_ITS ---
Intake Intake Visit Reasons: OV-Left knee pain-follow up Intake Note: Ana is a 62 year old female who presents today for follow up for left knee pain. Patient report ongoing pain for 6 months and it is still getting worse. She states she also has numbness in her knee. She states that her pain is on the lateral aspect of the knee. Patient reports when she kneels down her pain is worse. No hx of injections/PT. No hx of pain relief medication. Allergies alogliptin Allergy (Unknown, Verified 05/25/23 10:20) contipation sitagliptin [Januvia] Allergy (Unknown, Verified 05/25/23 10:20) vomiting Medication List - Last Reconciled 05/25/23 by Meghna Miramontes MD atorvastatin 80 mg PO DAILY blood sugar diagnostic (FreeStyle Test strips) As directed blood-glucose meter,continuous (Dexcom G6 Garbage Collection Supervisor) As directed blood-glucose sensor (Dexcom G6 Sensor device) As directed blood-glucose transmitter (Dexcom G6 Transmitter device) As directed cyanocobalamin (vitamin B-12) 1,000 mcg PO DAILY ferrous sulfate 325 mg PO DAILY glucagon 3 mg/actuation (Baqsimi) 3 mg intranasal ONCE insulin glargine (Lantus Solostar U-100 Insulin) 6 units subcut QPM insulin lispro (Humalog KwikPen (U-100) Insulin) 13 units subcut TID lancets (FreeStyle Lancets) As directed 3 times a day latanoprost 0.005% 1 drp ophthalmic (eye) lisinopril 10 mg PO DAILY loratadine 10 mg PO DAILY PRN metformin 1,000 mg PO BID omeprazole 40 mg PO DAILY pen needle, diabetic (BD Chanell 2nd Gen Pen Needle) As directed once a day rosuvastatin 40 mg PO DAILY HPI HPI Comments History of Present Illness Details Seen by orthopedics for left knee pain. But knee xray was unremarkable. She had complained of numbness, and so referred to Physiatry for further evaluation. History of DM, HbA1c 7.2. Reports left knee numbness, lateral area with pain on knee flexion. No foot drop. Burning on both feet. PCP has prescribed gabapentin for presumed neuropathy. Denies back pain. Also mentions left thumb numbness. [facility] Medical History Hyperlipidemia, unspecified Essential hypertension Type 2 diabetes mellitus with unspecified complications Surgical History No pertinent past surgical history Family History Mother No problems noted. Father Diabetes Brother Diabetes Sister Diabetes Social History Household Members: Family Household Members Other:: daughter Alcohol intake: current Alcohol intake frequency: does not drink Patient Tobacco Use Status: Never used Tobacco Review of Systems Const All systems reviewed & are unremarkable except as noted in HPI and below Physical Exam Constitutional: Patient appears to be in no acute distress, well nourished and well developed. MSK: No specific abnormalities found on inspection of the spine and all extremities. Lumbar ROM was full. Bilateral hip, knee and ankle ROM WNL. No ligamentous laxity or crepitant. No increased effusion. No joint line tenderness. No tenderness over patella. Patellar grind test is negative. Anterior drawer test is negative. Karly test is negative. Posterior drawer test is negative. Valgus and varus stress tests are negative. Laya test is negative. Strength is 5/5 in all muscle groups tested. No increased tone noted. No footdrop. Neurological: Neurologic examination of the upper and lower extremities was nonfocal with inta ct sensation, muscle stretch reflexes and without focal motor deficits . Hamlin?s negative bilaterally. Babinski was down going bilaterally. Clonus was negative. Gait is non-antalgic without loss of balance. Results Reviewed Results Reviewed: Ordering Physician: Yari Higuera PA-C Date of Service: 04/19/23 Procedure(s): XR knee LT 2V Accession Number(s): [id number] cc: Yari Higuera PA-C~ EXAMINATION: XR KNEE, LEFT XR KNEE AP STANDING CLINICAL INFORMATION: Pain. COMPARISON: None available. TECHNIQUE: Lateral and axial of the left knee were obtained. AP bilateral standing view of the knees was obtained. FINDINGS: No fracture or joint effusion. Alignment is anatomic. Joint spaces are maintained. There are 2 small round soft tissue calcifications in the posterior calf which may be related to venous insufficiency. No varus or valgus configuration is seen bilaterally. A tiny enthesophyte is incidentally seen of the medial aspect of the distal right femoral shaft towards the adductor insertion. XR/XR knee LT 2V IMPRESSION: Unremarkable left knee and AP standing bilateral knee radiographs. I reviewed records from the following: ortho Assessment & Plan Assessment & Plan (1) Diabetic neuropathy: Code(s): E11.40 - Type 2 diabetes mellitus with diabetic neuropathy, unspecified Qualifiers: Diabetes mellitus complication detail: diabetic polyneuropathy Diabetes mellitus type: type 2 Qualified Code(s): E11.42 - Type 2 diabetes mellitus with diabetic polyneuropathy (2) Peroneal neuropathy at knee: Code(s): G57.30 - Lesion of lateral popliteal nerve, unspecified lower limb Qualifiers: Laterality: left Qualified Code(s): G57.32 - Lesion of lateral popliteal nerve, left lower limb Plan Possibly has diabetic neuropathy. Symptoms could be peroneal neuropathy as well. We will schedule for NCS/EMG. Assessment and plan discussed with patient, and patient was agreeable. All questions were answered thoroughly. Meghna Miramontes MD, ZENOBIA Board Certified, [place] Board of Physical Medicine and Rehabilitation (ABPMR) Board Certified, [place] Board of Electrodiagnostic Medicine (ABEM) Orders: Orders NE nerve conduction velocity Today E11.40 - Type 2 diabetes mellitus with diabetic neuropathy, unspecified, G57.30 - Lesion of lateral popliteal nerve, unspecified lower limb NE electromyogram (EMG) Today E11.40 - Type 2 diabetes mellitus with diabetic neuropathy, unspecified, G57.30 - Lesion of lateral popliteal nerve, unspecified lower limb Coding Level of Care Code New Pt Level 4 (57793) Diagnoses Diabetic polyneuropathy associated with type 2 diabetes mellitus E11.42 Diabetes mellitus complication detail: diabetic polyneuropathy Diabetes mellitus type: type 2 Neuropathy of peroneal nerve at left knee G57.32 Laterality: left
== END 2023-05-25 10:46 | disposition home or self-care (01) ==
PROVIDERS: PCP Internal Medicine; Visit Provider Physical Medicine & Rehabilitation
DX: E11.42 Type 2 diabetes mellitus with diabetic polyneuropathy (principal); G57.32 Lesion of lateral popliteal nerve, left lower limb
CPT/HCPCS: 99204

== ENCOUNTER → 2023-05-25 10:24 | Outpatient (BNVA) | payer MEDICARE, MEDICAID, SELFPAY | PROVIDERS: PCP Internal Medicine; Visit Provider Physical Medicine & Rehabilitation | DX: E11.42 Type 2 diabetes mellitus with diabetic polyneuropathy (principal); G57.32 Lesion of lateral popliteal nerve, left lower limb | CPT/HCPCS: 99202 ==

== ENCOUNTER 2023-06-17 09:30 | Outpatient (REF) | payer MEDICARE, MEDICAID, SELFPAY ==
--- NOTE | 2023-06-17 09:34 | EMG_ITS ---
Chief complaint: Left knee pain with numbness down anterior leg and foot, diabetic Reason for referral: Evaluate for peroneal neuropathy or peripheral neuropathy Procedure done: Lower extremity NCS/EMG Precautions and/or limitations: None The limb temperature was monitored continuously and remained between 32-36 degrees C during the performance of the NCS. Nerve Conduction Studies Anti Sensory Summary Table ?Stim Site NR Onset (ms) Norm Onset (ms) Peak (ms) Norm Peak (ms) O-P Amp (?V) Norm O-P Amp Site1 Site2 Delta-0 (ms) Dist (cm) Jamal (m/s) Norm Jamal (m/s) Left Sural Anti Sensory (Lat Mall) Calf ? 3.1 3.8 <4.0 23.3 >5.0 Calf Lat Mall 3.1 14.0 45 Right Sural Anti Sensory (Lat Mall) Calf ? 2.3 3.1 <4.0 86.4 >5.0 Calf Lat Mall 2.3 14.0 61 Motor Summary Table ?Stim Site NR Onset (ms) Norm Onset (ms) O-P Amp (mV) Norm O-P Amp iAmp (mV) Amp (1st) (%) Site1 Site2 Delta-0 (ms) Dist (cm) Jamal (m/s) Norm Jamal (m/s) Left Peroneal Motor (Ext Dig Brev) Ankle ? 3.8 <4.0 13.8 >2.5 18.1 100.0 Ankle Ext Dig Brev 3.8 0.0 B Fib ? 10.0 13.2 17.0 95.7 B Fib Ankle 6.2 29.0 47 >40 Poplt ? 10.9 13.0 16.8 94.2 Poplt B Fib 0.9 5.0 56 >40 Left Peroneal TA Motor (Tib Ant) Fib Head ? 3.0 <4.2 3.4 3.8 100.0 Fib Head Tib Ant 3.0 0.0 Poplit ? 4.1 <5.7 3.1 3.5 91.2 Poplit Fib Head 1.1 5.0 45 >40.5 Left Tibial Motor (Abd Butts Brev) Ankle ? 3.8 <5 7.1 >2.5 10.8 100.0 Ankle Abd Butts Brev 3.8 0.0 Knee ? 11.8 6.4 9.7 90.1 Knee Ankle 8.0 37.0 46 >40 EMG ?Side Muscle Nerve Root Ins Act Fibs Psw Amp Dur Poly Recrt Int Pat Comment Left AbdHallucis MedPlantar S1-2 Nml Nml Nml Nml Nml 0 Nml Complete Left AntTibialis Dp Br Peron L4-5 Nml Nml Nml Nml Nml 0 Nml Complete Left PostTibialis Tibial L5, S1 Nml Nml Nml Nml Nml 0 Nml Complete Left MedGastroc Tibial S1-2 Nml Nml Nml Nml Nml 0 Nml Complete Left VastusMed Femoral L2-4 Nml Nml Nml Nml Nml 0 Nml Complete FINDINGS: All motor and sensory nerves tested showed normal latencies, amplitudes and conduction velocities. Concentric needle EMG was performed in selected muscles of the left lower extremity. Study did not reveal signs of electric abnormalities as shown in the table below. IMPRESSION: 1. This is a normal study. 2. There is no electrodiagnostic evidence for peroneal neuropathy, tibial neuropathy, lumbosacral plexopathy, lumbar radiculopathy, or peripheral neuropathy. CLINICAL COMMENT: She does have symptoms of peroneal neuropathy, but without footdrop. However testing today revealed normal peroneal nerve, recording at EDB and TA muscles. X-ray of knee also was unremarkable.. Will refer to PT. Follow up in physiatry in 4 weeks. Still advised continued control of DM. Thank you for your kind referral. Meghna Miramontes MD, ZENOBIA Board Certified, [place] Board of Physical Medicine and Rehabilitation (ABPMR) Board Certified, [place] Board of Electrodiagnostic Medicine (ABEM) [place] [id number] [facility]
== END 2023-06-17 09:31 | disposition home or self-care (01) ==
LOC: HO.NEURO 09:30
PROVIDERS: PCP Internal Medicine; Visit Provider Physical Medicine & Rehabilitation
DX: R20.0 Anesthesia of skin (principal); G57.30 Lesion of lateral popliteal nerve, unspecified lower limb; E11.40 Type 2 diabetes mellitus with diabetic neuropathy, unspecified
CPT/HCPCS: 95886; 95908

== ENCOUNTER 2023-07-21 15:16 | Outpatient (AMB) | payer MEDICARE, MEDICAID, SELFPAY ==
--- NOTE | 2023-07-21 15:27 | MHC.AMDMED ---
Intake Vital Signs 07/21/23 15:27 Weight 119 lb 4 oz Intake Visit Reasons: DM/CONFIRMED Gate Tender Required: Yes Gate Tender Language: Tamil Gate Tender Name: Wen [id number] Accompanied by: Self / Same As Patient Allergies alogliptin Allergy (Unknown, Verified 05/25/23 10:20) contipation sitagliptin [Januvia] Allergy (Unknown, Verified 05/25/23 10:20) vomiting HPI Comprehensive Diabetes Asmnt Most Recent Diabetes Results: Microalb/Creat Ratio 4.4 ug/mg cr (<30) 05/12/23 Cholesterol 119 mg/dL (<200) 05/12/23 HDL Cholesterol 48 mg/dL (>40) 05/12/23 Triglycerides 63 mg/dL (<150) 05/12/23 Creatinine 1.00 mg/dL (0.5-1.4) 05/12/23 Blood Urea Nitrogen 15 mg/dL (9-16) 05/12/23 Sodium 142 mmol/L (135-145) 05/12/23 Potassium 4.2 mmol/L (3.3-5.1) 05/12/23 Chloride 107 mmol/L (96-108) 05/12/23 Carbon Dioxide 25 mmol/L (22-29) 05/12/23 Calcium 10.0 mg/dL (8.4-10.2) 05/12/23 AST 16 U/L (5-31) 05/12/23 ALT 10 U/L (0-31) 05/12/23 Total Protein 7.2 g/dL (6.5-8.0) 05/12/23 Albumin 4.4 g/dL (3.5-5.0) 05/12/23 [facility] Medical History Hyperlipidemia, unspecified Essential hypertension Type 2 diabetes mellitus with unspecified complications Surgical History No pertinent past surgical history Family History Mother No problems noted. Father Diabetes Brother Diabetes Sister Diabetes Social History Household Members: Family Household Members Other:: daughter Alcohol intake: current Alcohol intake frequency: does not drink Patient Tobacco Use Status: Never used Tobacco Assessment & Plan Assessment & Plan (1) Type 2 diabetes mellitus with unspecified complications: Code(s): E11.8 - Type 2 diabetes mellitus with unspecified complications Plan: Personal Continuous Glucose Monitor: Patients CGM information reviewed Reviewed patient's sensor data: Hypoglycemia: ? 1% Hyperglycemia:? 46% Time in Range:? 53% Average glucose for the last 2 weeks?184 mg/dL Patient's last A1c on 05/12/2023 7.1% Patient's glucose still running just above target, patient did not feel comfortable increasing Humalog from 13 units prior to meals to 16 units prior to meals as recommended in Dr. Goodman's last visit. We discussed today increasing Lantus from 12 units to 14 daily message sent to Dr. Goodman update Lantus prescription. Patient is also using Dexcom G6 sensors and has been discharged back to PCP instructed patient going forward she should request prescriptions for diabetes medications at her PCP office Reviewed how to interpret trend arrows Reminded patient that to check finger sticks if symptoms do not match sensor reading. Discussed lag time between finger stick and sensor data.? Patient able to insert sensor independently at home without issue.? Patient Instructions: Increase Lantus from 12 units to 14 units daily Follow-up with certified adapted physical educator in 3 months Coding Level of Care Code Est Pt Level 1 (51661) Diagnoses Type 2 diabetes mellitus with unspecified complications E11.8
== END 2023-07-21 16:13 | disposition home or self-care (01) ==
PROVIDERS: PCP Internal Medicine; Visit Provider Registered Nurse Diabetes Educator
DX: E11.8 Type 2 diabetes mellitus with unspecified complications (principal)

== ENCOUNTER → 2023-07-21 15:16 | Outpatient (BNVA) | payer MEDICARE, MEDICAID, SELFPAY | PROVIDERS: PCP Internal Medicine; Visit Provider Registered Nurse Diabetes Educator | DX: E11.8 Type 2 diabetes mellitus with unspecified complications (principal); Z79.4 Long term (current) use of insulin | CPT/HCPCS: 99211 ==

== ENCOUNTER → 2023-08-31 10:59 | Outpatient (BNVA) | payer MEDICARE, MEDICAID, SELFPAY | PROVIDERS: PCP Internal Medicine; Visit Provider Nurse Practitioner Family | DX: R35.0 Frequency of micturition (principal) | CPT/HCPCS: 51798; 81003; 99202 ==

== ENCOUNTER 2023-09-22 11:00 | Outpatient (RCR) | payer MEDICARE, MEDICAID, SELFPAY ==
[2023-08-09 10:05] VITALS: BP 138/66; PULSE 66; O2SAT 96
== END 2024-02-06 09:27 | disposition home or self-care (01) ==
LOC: HO.PTWFD 11:00
PROVIDERS: PCP Internal Medicine; Visit Provider Physical Medicine & Rehabilitation
DX: G57.32 Lesion of lateral popliteal nerve, left lower limb (principal); M25.562 Pain in left knee
CPT/HCPCS: 97110; 97112; 97140; 97162; 97164

== ENCOUNTER 2023-10-20 15:15 | Outpatient (AMB) | payer MEDICARE, MEDICAID, SELFPAY ==
--- NOTE | 2023-10-20 15:29 | MHC.AMDMED ---
Intake Intake Visit Reasons: DM/Dexcom/LVM Debt Collector Required: Yes Debt Collector Language: Tamil Debt Collector Name: Braeden [id number] Accompanied by: Self / Same As Patient Allergies alogliptin Allergy (Unknown, Verified 08/31/23 19:10) contipation sitagliptin [Januvia] Allergy (Unknown, Verified 08/31/23 19:10) vomiting HPI Comprehensive Diabetes Asmnt Most Recent Diabetes Results: Microalb/Creat Ratio 4.4 ug/mg cr (<30) 05/12/23 Cholesterol 119 mg/dL (<200) 05/12/23 HDL Cholesterol 48 mg/dL (>40) 05/12/23 Triglycerides 63 mg/dL (<150) 05/12/23 Creatinine 1.00 mg/dL (0.5-1.4) 05/12/23 Blood Urea Nitrogen 15 mg/dL (9-16) 05/12/23 Sodium 142 mmol/L (135-145) 05/12/23 Potassium 4.2 mmol/L (3.3-5.1) 05/12/23 Chloride 107 mmol/L (96-108) 05/12/23 Carbon Dioxide 25 mmol/L (22-29) 05/12/23 Calcium 10.0 mg/dL (8.4-10.2) 05/12/23 AST 16 U/L (5-31) 05/12/23 ALT 10 U/L (0-31) 05/12/23 Total Protein 7.2 g/dL (6.5-8.0) 05/12/23 Albumin 4.4 g/dL (3.5-5.0) 05/12/23 [facility] Medical History Hyperlipidemia, unspecified Essential hypertension Type 2 diabetes mellitus with unspecified complications Surgical History No pertinent past surgical history Family History Mother No problems noted. Father Diabetes Brother Diabetes Sister Diabetes Social History Household Members: Family Household Members Other:: daughter Alcohol intake: current Alcohol intake frequency: does not drink Patient Tobacco Use Status: Never used Tobacco Assessment & Plan Assessment & Plan (1) Type 2 diabetes mellitus with unspecified complications: Code(s): E11.8 - Type 2 diabetes mellitus with unspecified complications Plan: Personal Continuous Glucose Monitor: Patients CGM information reviewed Reviewed patient's sensor data: Hypoglycemia: ? 0% Hyperglycemia:? 57% Time in Range:? 43% Average glucose for the last 2 weeks? 200 mg/dL Patient is overdue for A1c, was discharged back to PCP at last visit with Dr. Goodman. But has been unable to get PCP to send prescriptions for Dexcom sensors and transmitters. At today's visit I reconnected patient's transmitter to respiratory therapy aide. Also recommended to patient that she return to [facility], she is overdue for her A1c and her average glucose is running above target Reviewed how to interpret trend arrows Reminded patient that to check finger sticks if symptoms do not match sensor reading. Discussed lag time between finger stick and sensor data.? Patient able to insert sensor independently at home without issue.? Portions of this note were created using voice recognition software, please excuse any words or phrases that may have been misinterpreted. Patient Instructions: Patient will make follow-up appointment with endocrine UNDERWRITING ACCOUNT REPRESENTATIVE Follow-up with staff development educator 1 month after UNDERWRITING ACCOUNT REPRESENTATIVE appointment Coding Level of Care Code Est Pt Level 1 (58427) Diagnoses Type 2 diabetes mellitus with unspecified complications E11.8
== END 2023-10-20 16:11 | disposition home or self-care (01) ==
PROVIDERS: PCP Internal Medicine; Visit Provider Registered Nurse Diabetes Educator
DX: E11.8 Type 2 diabetes mellitus with unspecified complications (principal)

== ENCOUNTER → 2023-10-20 15:15 | Outpatient (BNVA) | payer MEDICARE, MEDICAID, SELFPAY | PROVIDERS: PCP Internal Medicine; Visit Provider Registered Nurse Diabetes Educator | DX: E11.8 Type 2 diabetes mellitus with unspecified complications (principal) | CPT/HCPCS: 99211 ==

== ENCOUNTER 2023-11-22 12:11 | Outpatient (AMB) | payer MEDICARE, MEDICAID, SELFPAY ==
--- NOTE | 2023-11-22 11:57 | A.OFFVIS_ITS ---
Vital Signs 11/22/23 13:15 Height 5 ft 1 in Weight 122 lb 1 oz BMI 23.1 BP 122/76 Blood Pressure Location Rt brachial Position Sitting Pulse 72 Intake Visit Reasons: DM/Dexcom/CONFIRMED Intake Note: Patient presents today to re-establish treatment for Type 2 Diabetes Mellitus: Melt Helper Language Tamil Last Diabetic eye exam was on: DUE Last Podiatry exam was on: Does not see a Media Production Support Manager Most recent HbA1c: 8.0%, 11/22/2023 Random Glucose- 101 mg/dL, Today Melt Helper Required: Yes Melt Helper Language: Reid Melt Helper Services: Melt Helper Present (Via telephone) Melt Helper Name: #[id number] Accompanied by: Self / Same As Patient Allergies alogliptin Allergy (Unknown, Verified 11/22/23 12:47) contipation sitagliptin [Januvia] Allergy (Unknown, Verified 11/22/23 12:47) vomiting Medication List - Last Reconciled 11/22/23 by Lacy Shook NP atorvastatin 80 mg PO DAILY blood sugar diagnostic (FreeStyle Test strips) As directed blood-glucose meter,continuous (Dexcom G6 Director Of Assessing) As directed blood-glucose sensor (Dexcom G6 Sensor device) As directed blood-glucose transmitter (Dexcom G6 Transmitter device) As directed cholecalciferol (vitamin D3) 50 mcg PO DAILY cyanocobalamin (vitamin B-12) 1,000 mcg PO DAILY ferrous sulfate 325 mg PO DAILY glucagon 3 mg/actuation (Baqsimi) 3 mg intranasal ONCE insulin glargine (Lantus Solostar U-100 Insulin) 14 units (0.14 mL) subcut QPM insulin lispro (Humalog KwikPen (U-100) Insulin) Breakfast 6 units, lunch 13 units, supper 6 units subcutaneously 3 times a day; lancets (FreeStyle Lancets) As directed 3 times a day latanoprost 0.005% 1 drp ophthalmic (eye) lisinopril 10 mg PO DAILY loratadine 10 mg PO DAILY PRN metformin 1,000 mg PO BID omeprazole 40 mg PO DAILY pen needle, diabetic (BD Chanell 2nd Gen Pen Needle) As directed once a day rosuvastatin 40 mg PO DAILY HPI Comments Details: 61 YO F who is seen in f/u for T2DM. She was last seen by Dr. Goodman 05/21 at which time she was discharged back to her PCP. She had problems getting her dexcom sensor and has since seen Rain Hobson CDE in September 2023. Most recent A1c was 8% today in the office. Previous A1c was 7.1% she reports that recently she has been traveling and did not take her insulin due to fears of having low sugars. Initially diagnosed with T2DM in 20 yrs . Was initially started on treatment with metformin. Was on Trulicity 0.75 mg weekly but she was losing too much weight due to poor appetite. Her weight has stabilized Current regime: Metformin 1000 mg BID Lantus 12 units Humalog breakfast 6 units lunch 13 units supper 6 units Dexcom average glucose: [206 ] 14 day continous glucose monitor report reviewed TIme in range: [ 17] % very high (above 250) 50 % high ?(181-250) [33 ] % in range ?(70-180] [ 0] % low (69-55) [ 0] % ?very low (below 54) [54 ] % TIme CGM Active Details [ ] no recent lows Treats low with sugar Family history of T2DM in father and siblings . Has eyes checked yearly, last eye exam August 23, has f/u this week, denies retinopathy however, this is her second appt this year Denies neuropathy, ,does not see podiatry. Denies nephropathy, on LEIF. Has HLD, on statin. Denies CAD. Saw CDE for sensor Has been seen by nutrition in the past and follows a balanced diet. She was seen by [facility] endocrinology as she was not able to get an appointment here for slightly elevated calcium and PTH. She reports she had a bone density test done and she was advised her vitamin-D was low and she has been started on 2000 IU use daily [facility] Medical History Hyperlipidemia, unspecified Essential hypertension Type 2 diabetes mellitus with unspecified complications Surgical History No pertinent past surgical history Family History Mother No problems noted. Father Diabetes Brother Diabetes Sister Diabetes Social History Household Members: Family Household Members Other:: daughter Alcohol intake: current Alcohol intake frequency: does not drink Patient Tobacco Use Status: Never used Tobacco Physical Exam Vital Signs: Last Vital Signs Pulse 72 11/22/23 13:15 BP 122/76 11/22/23 13:15 Const Other: Absence of Cushingoid features. Absence of acromegalic features. Neck exam reveals nl size thyroid about 15 gms. No thyroid nodules palpable. No carotid bruits present. Lungs CTA. Heart S1 S2, Reg R/R. No M/R G. Skin exam reveals absence of vitiligo Extrem Other: Visual exam of foot performed. No ulcerations or open lesions. No onchomycosis, no callouses. No inter digit fissuring or maceration. Sensation intact to monofilament exam. Vibratory sensation is normal with 128 Hz tuning fork. Results AMB Hemoglobin A1c AMB Hemoglobin A1c 8.0 % Last Edit by DEB Montes on 11/22/23 12:51 Results Reviewed Results Reviewed: Laboratory Last Values Glucose (Clinic) 101 mg/dL (60-115) 11/22/23 12:40 Hgb A1c (Clinic) 8.0 % (4.0-6.0) H 11/22/23 12:48 Laboratory Tests 05/10/23 05/12/23 14:46 08:05 Plt Count 208 Potassium 4.2 Creatinine 1.00 Estimated GFR 56 Hgb A1c (Clinic) 7.1 H Calcium 10.0 AST 16 ALT 10 Triglycerides 63 Cholesterol 119 LDL Cholesterol, Calc 59 HDL Cholesterol 48 25-OH Vitamin D Total 27.5 L TSH 3.09 PTH Intact 110.4 H Urine Creatinine 113.16 Urine Microalbumin 5.0 Microalb/Creat Ratio 4.4 Assessment & Plan Assessment & Plan (1) Type 2 diabetes mellitus with unspecified complications: Code(s): E11.8 - Type 2 diabetes mellitus with unspecified complications Category: Medical Plan: 62-year-old type 2 diabetic (E11.65 type 2 diabetes with hyperglycemia). with no macro or microvascular complications previously well controlled with an increase in A1c to 8%. She had not been taking her insulin while traveling and was advised to restart and to increase her Lantus to 14 units. Blood pressure and lipid profile are in good range. Diabetes medications: Metformin 1000 mg BID Lantus 14 units Humalog breakfast 6 units lunch 13 units supper 6 units She will need to continue use of Dexcom sensor as she is on multiple daily injections and not at target A1C. (2) Hypercalcemia: Code(s): E83.52 - Hypercalcemia Plan: We will obtain patient's medical records from [facility] endocrinology. Per patient she had a bone density test done in workup for high calcium PTH and was told she had low vitamin-D and was placed on vitamin-D 2000 IU daily. She will continue with this and have repeat calcium ionized calcium PTH and vitamin-D drawn at [facility] with results to our office. Orders: Orders AMB Hemoglobin A1c Today E11.8 - Type 2 diabetes mellitus with unspecified complications Calcium Today E83.52 - Hypercalcemia Calcium, Ionized Today E83.52 - Hypercalcemia Albumin Level Today E83.52 - Hypercalcemia Vitamin D 25-OH Total Today E83.52 - Hypercalcemia Parathyroid Hormone Intact Today E83.52 - Hypercalcemia Patient Instructions: The patient was counseled to achieve a target A1C of 7% (154 avg). Fasting blood sugars should be 90-130 in the morning and less than 180 two hours after meals. Reviewed the relationship between poor diabetic control and the development of complications Coding Level of Care Code Est Pt Level 4 (01989) Diagnoses Type 2 diabetes mellitus with unspecified complications E11.8 Hypercalcemia E83.52 Time Spent (min) 30
[2023-11-22 12:47] LABS: Glucose, Whole Blood 101 mg/dL (60-115)
[2023-11-22 13:15] VITALS: BP 122/76; PULSE 72; BMI 23.1
== END 2023-11-22 13:08 | disposition home or self-care (01) ==
PROVIDERS: PCP Internal Medicine; Visit Provider Nurse Practitioner Adult Health
DX: E11.8 Type 2 diabetes mellitus with unspecified complications (principal); E83.52 Hypercalcemia
CPT/HCPCS: 99214

== ENCOUNTER → 2023-11-22 12:11 | Outpatient (BNVA) | payer MEDICARE, MEDICAID, SELFPAY | PROVIDERS: PCP Internal Medicine; Visit Provider Nurse Practitioner Adult Health | DX: E11.8 Type 2 diabetes mellitus with unspecified complications (principal); E83.52 Hypercalcemia | CPT/HCPCS: 82947; 83036; 99212 ==

== ENCOUNTER 2023-11-29 13:22 | Outpatient (AMB) | payer MEDICARE, MEDICAID, SELFPAY ==
[2023-11-29 13:29] VITALS: BMI 22.7
--- NOTE | 2023-11-29 13:29 | A.OFFVIS_ITS ---
VS Expanded 11/29/23 13:29 Height 5 ft 1 in Weight 120 lb 2.431 oz BMI 22.7 Intake Visit Reasons: DM/CONFIRMED Allergies alogliptin Allergy (Unknown, Verified 11/22/23 12:47) contipation sitagliptin [Januvia] Allergy (Unknown, Verified 11/22/23 12:47) vomiting Nutrition Presentation Details: Pt presents for MNT f/u for T2DM Pt has questions regarding vit D sources of foods BS Monitoring Most Recent Diabetes Results: No Data to Display PFSH Medical History Hyperlipidemia, unspecified Essential hypertension Type 2 diabetes mellitus with unspecified complications Surgical History No pertinent past surgical history Family History Mother No problems noted. Father Diabetes Brother Diabetes Sister Diabetes Social History Household Members: Family Household Members Other:: daughter Alcohol intake: current Alcohol intake frequency: does not drink Patient Tobacco Use Status: Never used Tobacco Assessment & Plan Assessment & Plan (1) Type 2 diabetes mellitus with unspecified complications: Code(s): E11.8 - Type 2 diabetes mellitus with unspecified complications Category: Medical Plan: Review MUFA, vitamin D source sof foods and role of physical activity ? Used wt : 58 kg (weight remains the same as last visit in 07/2021, 12/01/21), 55kg (04/2023) Est kcal as per MSJ: 1500 (40% carb, 30% fat/prot) Est fluid needs: 1450 ml/d (25 ml/kg bw) Rec fiber: increase to 8-10 g per day and gradually increase to 25 g/d or as tolerated Rec Na: < 2000 mg /d Educate patient on: (R= Reviewed, V = verbalizes understanding N/R= Needs review N/A= not applicable) * Food sources of carbohydrates and serving adequate serving sizes : R * Difference between complex carbohydrates and simple carbohydrates, role of fiber: R * Differences between fats (MUFA/PUFA/saturated fats, trans fats) and food sources of various fats: R * Food sources of sodium and salt and healthy modifications for heart health and kidney health: R * Vitamins and minerals: R V * How to interpret food labels: R * Healthy Plate method concept: R , V * Physical activity: benefits and precaution: R , V Patient Instructions: Include vitamin D sources of foods in your diet (seeds, diary, dairy alternatives fortified with vitamin D, - see list of food options aim at consuming 600 IU/d Coding Level of Care Code Nutr Indiv Subseq (30737) Diagnoses Type 2 diabetes mellitus with unspecified complications E11.8 Time Spent (min) 30
== END 2023-11-29 14:03 | disposition home or self-care (01) ==
PROVIDERS: PCP Internal Medicine; Visit Provider Dietitian, Registered
DX: E11.8 Type 2 diabetes mellitus with unspecified complications (principal)

== ENCOUNTER → 2023-11-29 13:22 | Outpatient (BNVA) | payer MEDICARE, MEDICAID, SELFPAY | PROVIDERS: PCP Internal Medicine; Visit Provider Dietitian, Registered | DX: E11.8 Type 2 diabetes mellitus with unspecified complications (principal) | CPT/HCPCS: 97803 ==

== ENCOUNTER 2023-12-20 11:08 | Outpatient (AMB) | payer MEDICARE, MEDICAID, SELFPAY ==
--- NOTE | 2023-12-20 10:17 | MHC.OFFVIS ---
Vital Signs 12/20/23 11:23 Height 5 ft 1 in Weight 125 lb 10.616 oz BMI 23.7 BP 116/68 Blood Pressure Location Rt brachial Position Sitting Pulse 75 Pulse Source Pulse Oximeter Intake Visit Reasons: DM/CONFIRMED Intake Note: Patient presents today for a follow up on Type 2 Diabetes Mellitus: Plant Physiologist Language Tamil Last Diabetic eye exam was on: DUE Last Podiatry exam was on: Does not see a Cosmetic Manager Most recent HbA1c: 8.0%, 11/22/2023 Random Glucose- 116mg/dL, Today Plant Physiologist Required: Yes Plant Physiologist Language: Reid Plant Physiologist Services: Plant Physiologist Present (voice only via [employer] data reviewer nazia) Plant Physiologist Name: Wen #[id number] Information Interpreted: non-clinical & clinical Accompanied by: Self / Same As Patient Allergies alogliptin Allergy (Unknown, Verified 12/20/23 11:15) contipation sitagliptin [Januvia] Allergy (Unknown, Verified 12/20/23 11:15) vomiting HPI Comments Details: 63 YO F who is seen in f/u for T2DM. She was last seen by Dr. Goodman 05/21 at which time she was discharged back to her PCP. She had problems getting her dexcom sensor and has since seen Rain PICHARDO in September 2023 and myself 4 weeks ago. Most recent A1c was 8% 11/22/23. Previous A1c was 7.1% she reported at the time of her last A1C that recently she has been traveling and did not take her insulin due to fears of having low sugars. Since that time she has been consistent with taking her insulin. Initially diagnosed with T2DM in 20 yrs . Was initially started on treatment with metformin. Was on Trulicity 0.75 mg weekly but she was losing too much weight due to poor appetite. Her weight has stabilized Current regime: Metformin 1000 mg BID Lantus 14 units Humalog breakfast 6 units lunch 13 units supper 6 units no recent lows Treats low with sugar Glucose numbers have been better since increasing Lantus insulin. She is having trouble pairing her sensor with her device. She was encouraged to call Dexcom when her daughter was present so that she would have someone to interpret and they can assist her and pairing the clarity nazia to her sensor Family history of T2DM in father and siblings . Has eyes checked yearly, last eye exam August 23, has f/u this week, denies retinopathy however, this is her second appt this year goes every 4 months for glaucoma Denies neuropathy, ,does not see podiatry. + nephropathy, on LEIF. 05/2023 urine microalbumin: 5.0 eGFR 56 Has HLD, on statin. 05/2023: LDL 59 Denies CAD. Saw CDE for sensor Has been seen by nutrition in the past and follows a balanced diet. She was seen by [facility] endocrinology as she was not able to get an appointment here for slightly elevated calcium and PTH. She reports she had a bone density test done and she was advised her vitamin-D was low and she has been started on 2000 IU use daily. This was refilled today and another request was sent to [facility] for labs. ON LICENSE OF [facility] Medical History (Updated 12/20/23 @ 10:23 by Lacy Shook NP) Hypercalcemia Hyperlipidemia, unspecified Essential hypertension Type 2 diabetes mellitus with unspecified complications Surgical History No pertinent past surgical history Family History Mother No problems noted. Father Diabetes Brother Diabetes Sister Diabetes Social History Household Members: Family Household Members Other:: daughter Alcohol intake: current Alcohol intake frequency: does not drink Patient Tobacco Use Status: Never used Tobacco Physical Exam Vital Signs: Last Vital Signs Pulse 75 12/20/23 11:23 BP 116/68 12/20/23 11:23 BMI result Body Mass Index 23.7 Const Other: Absence of Cushingoid features. Absence of acromegalic features. Neck exam reveals nl size thyroid about 15 gms. No thyroid nodules palpable. skin exam reveals absence of vitiligo or acanthosis nigricans. No edema Visual exam of foot performed. No ulcerations or open lesions. No inter digit maceration or fissuring. Results Reviewed Results Reviewed: Laboratory Last Values Glucose (Clinic) 116 mg/dL (60-115) H 12/20/23 11:26 Laboratory Tests 05/12/23 11/22/23 08:05 12:48 Hgb A1c (Clinic) 8.0 H Calcium 10.0 Triglycerides 63 Cholesterol 119 LDL Cholesterol, Calc 59 HDL Cholesterol 48 25-OH Vitamin D Total 27.5 L TSH 3.09 PTH Intact 110.4 H Urine Creatinine 113.16 Urine Microalbumin 5.0 Microalb/Creat Ratio 4.4 Assessment & Plan Assessment & Plan (1) Type 2 diabetes mellitus with unspecified complications: Code(s): E11.8 - Type 2 diabetes mellitus with unspecified complications Category: Medical Plan: 62-year-old type 2 diabetic (E11.65 type 2 diabetes with hyperglycemia). with no macro or microvascular complications previously well controlled with an increase in A1c to 8%. Diabetes medications: Metformin 1000 mg BID Lantus 14 units Humalog breakfast 6 units lunch 13 units supper 6 units She will need to continue use of Dexcom sensor as she is on multiple daily injections and not at target A1C. She will contact [employer] with problems pairing her device to her phone nazia. Jasen obtain labs and clinic notes from [facility] (2) Hypercalcemia: Code(s): E83.52 - Hypercalcemia Category: Medical Plan: obtain results from [facility] endo Patient Instructions: The patient was counseled to achieve a target A1C of 7% (154 avg). Fasting blood sugars should be 90-130 in the morning and less than 180 two hours after meals. Reviewed the relationship between poor diabetic control and the development of complications Coding Level of Care Code Est Pt Level 4 (23174) Complex EM visit Add On G2211 Diagnoses Type 2 diabetes mellitus with unspecified complications E11.8 Hypercalcemia E83.52 Time Spent (min) 30 Comment Time spent reviewing labs/provider notes, face to face, chart doc
[2023-12-20 11:23] VITALS: BP 116/68; PULSE 75; BMI 23.7
[2023-12-20 11:30] LABS: Glucose, Whole Blood 116 mg/dL (60-115)
== END 2023-12-20 12:02 | disposition home or self-care (01) ==
PROVIDERS: PCP Internal Medicine; Visit Provider Nurse Practitioner Adult Health
DX: E11.8 Type 2 diabetes mellitus with unspecified complications (principal); E83.52 Hypercalcemia
CPT/HCPCS: 99214; G2211

== ENCOUNTER → 2023-12-20 11:08 | Outpatient (BNVA) | payer MEDICARE, MEDICAID, SELFPAY | PROVIDERS: PCP Internal Medicine; Visit Provider Nurse Practitioner Adult Health | DX: E11.8 Type 2 diabetes mellitus with unspecified complications (principal); E83.52 Hypercalcemia | CPT/HCPCS: 82947; 99212 ==

== ENCOUNTER 2023-12-22 13:09 | Outpatient (AMB) | payer MEDICARE, MEDICAID, SELFPAY ==
--- NOTE | 2023-12-22 13:50 | MHC.AMDMED ---
Intake Intake Visit Reasons: Dexcom/DM/LVM Director Of Officiating Required: Yes Director Of Officiating Language: Reid Director Of Officiating Name: Aren [phone] Accompanied by: Self / Same As Patient Allergies alogliptin Allergy (Unknown, Verified 12/20/23 11:15) contipation sitagliptin [Januvia] Allergy (Unknown, Verified 12/20/23 11:15) vomiting HPI Comprehensive Diabetes Asmnt Most Recent Diabetes Results: Microalb/Creat Ratio 4.4 ug/mg cr (<30) 05/12/23 Cholesterol 119 mg/dL (<200) 05/12/23 HDL Cholesterol 48 mg/dL (>40) 05/12/23 Triglycerides 63 mg/dL (<150) 05/12/23 Creatinine 1.00 mg/dL (0.5-1.4) 05/12/23 Blood Urea Nitrogen 15 mg/dL (9-16) 05/12/23 Sodium 142 mmol/L (135-145) 05/12/23 Potassium 4.2 mmol/L (3.3-5.1) 05/12/23 Chloride 107 mmol/L (96-108) 05/12/23 Carbon Dioxide 25 mmol/L (22-29) 05/12/23 Calcium 10.0 mg/dL (8.4-10.2) 05/12/23 AST 16 U/L (5-31) 05/12/23 ALT 10 U/L (0-31) 05/12/23 Total Protein 7.2 g/dL (6.5-8.0) 05/12/23 Albumin 4.4 g/dL (3.5-5.0) 05/12/23 [facility] Medical History Hypercalcemia Hyperlipidemia, unspecified Essential hypertension Type 2 diabetes mellitus with unspecified complications Surgical History No pertinent past surgical history Family History Mother No problems noted. Father Diabetes Brother Diabetes Sister Diabetes Social History Household Members: Family Household Members Other:: daughter Alcohol intake: current Alcohol intake frequency: does not drink Patient Tobacco Use Status: Never used Tobacco Assessment & Plan Assessment & Plan (1) Type 2 diabetes mellitus with unspecified complications: Code(s): E11.8 - Type 2 diabetes mellitus with unspecified complications Plan: Personal Continuous Glucose Monitor: Patients CGM information reviewed Reviewed patient's sensor data: Hypoglycemia: ? 0% Hyperglycemia:? 62% Time in Range:? 38% Average glucose for the last 2 weeks? 203 mg/dL Patient at visit today to reconnect Dexcom G6 sensor and transmitter to Dexcom G6 chief operator reformer Centrifugal Screen Tender was not connecting to patient's current transmitter due to low battery Patient given new Dexcom transmitter, and sensor Instructed patient on how to enter transmitter number and sensor number into both patient's cell phone and received Patient's last A1c 8% on 11/22/2023 Patient is having significant high blood sugars in the evenings and overnight Patient given new insulin plan at visit with PRACTICE OR STUDENT TEACHER on 12/22/2023 Patient able to insert sensor independently at home without issue.? Portions of this note were created using voice recognition software, please excuse any words or phrases that may have been misinterpreted. Patient Instructions: Patient seen by PRACTICE OR STUDENT TEACHER on 12/20/2023 No changes made to patient's medication at this time Patient will follow-up with adult educator in 5 months Coding Level of Care Code Est Pt Level 1 (82450) Diagnoses Type 2 diabetes mellitus with unspecified complications E11.8
== END 2023-12-22 13:57 | disposition home or self-care (01) ==
PROVIDERS: PCP Internal Medicine; Visit Provider Registered Nurse Diabetes Educator
DX: E11.8 Type 2 diabetes mellitus with unspecified complications (principal)

== ENCOUNTER → 2023-12-22 13:09 | Outpatient (BNVA) | payer MEDICARE, MEDICAID, SELFPAY | PROVIDERS: PCP Internal Medicine; Visit Provider Registered Nurse Diabetes Educator | DX: E11.8 Type 2 diabetes mellitus with unspecified complications (principal) | CPT/HCPCS: 99211 ==

== ENCOUNTER 2023-12-26 12:25 | Outpatient (AMB) | payer MEDICARE, MEDICAID, SELFPAY ==
--- NOTE | 2023-12-26 12:45 | A.OFFVIS_ITS ---
Intake Visit Reasons: ultrasound/frequency follow up (us ortiz 11/22) Intake Note: Patient presents today for follow up visit on: frequency and ultrasound results Imaging Completed: 11/23/23 Urology Medications: none Allergies to Antibiotic: none Blood Thinner: none PVR:0ml's Sorter Upholstery Parts Required: Yes Sorter Upholstery Parts Name: Bruce [id number] Accompanied by: Self / Same As Patient Allergies alogliptin Allergy (Unknown, Verified 12/26/23 15:43) contipation sitagliptin [Januvia] Allergy (Unknown, Verified 12/26/23 15:43) vomiting Medication List - Last Reconciled 12/26/23 by ROMA Magaña atorvastatin 80 mg PO DAILY blood sugar diagnostic (FreeStyle Test strips) As directed blood-glucose meter,continuous (Dexcom G6 Boat Painter) As directed blood-glucose sensor (Dexcom G6 Sensor device) As directed blood-glucose transmitter (Dexcom G6 Transmitter device) As directed cholecalciferol (vitamin D3) 50 mcg PO DAILY cyanocobalamin (vitamin B-12) 1,000 mcg PO DAILY ferrous sulfate 325 mg PO DAILY glucagon 3 mg/actuation (Baqsimi) 3 mg intranasal ONCE insulin glargine (Lantus Solostar U-100 Insulin) 14 units (0.14 mL) subcut QPM insulin lispro (Humalog KwikPen (U-100) Insulin) Breakfast 6 units, lunch 13 units, supper 6 units subcutaneously 3 times a day; lancets (FreeStyle Lancets) As directed 3 times a day latanoprost 0.005% 1 drp ophthalmic (eye) lisinopril 10 mg PO DAILY loratadine 10 mg PO DAILY PRN metformin 1,000 mg PO BID omeprazole 40 mg PO DAILY pen needle, diabetic (BD Chanell 2nd Gen Pen Needle) As directed once a day rosuvastatin 40 mg PO DAILY HPI Comments Details: Ana is a very pleasant Tamil speaking patient of Dr. [place]. She has a past medical history of diabetes, hypertension, and dyslipidemia. She presents to the office today for follow-up. Of note, patient was seen approximately 3 months ago at which time a retroperitoneal ultrasound was ordered for further assessment evaluation as patient had been reporting episodes of urinary urgency and frequency. These results were reviewed with the patient today. Bilateral kidneys with no calculi or obstruction appreciated. The urinary bladder is unremarkable. She reports feeling urinary symptoms very data day. She reports since her last office visit here she has attempted to avoid bladder triggers/irritants as discussed at last office visit and does feel this has been somewhat helpful. We discussed at length further treatment options for lower urinary tract symptoms patient is experiencing. However, patient would like to continue with surveillance monitoring at this time. She otherwise denies incontinence, nocturia, hematuria, dysuria, foul smelling urine, changes to urinary stream, flank pain, fever, and or chills. She is happy with her current voiding parameters. In office urinalysis results reviewed with the patient today. PVR 0 mL. She otherwise offers no other issues or concerns at this time. In review of patient's chart it appears A1c 11/18 8.0. PFSH Medical History Hypercalcemia Hyperlipidemia, unspecified Essential hypertension Type 2 diabetes mellitus with unspecified complications Surgical History No pertinent past surgical history Family History Mother No problems noted. Father Diabetes Brother Diabetes Sister Diabetes Social History Household Members: Family Household Members Other:: daughter Alcohol intake: current Alcohol intake frequency: does not drink Patient Tobacco Use Status: Never used Tobacco Review of Systems Const All systems reviewed & are unremarkable except as noted in HPI and below Physical Exam Const General: cooperative, healthy appearing, comfortable, no acute distress, well developed, alert and awake Orientation/consciousness: patient oriented x3 Limitations: no limitations HEENT Head: Yes normal to inspection Ears: hearing grossly normal bilaterally Eyes General: appearance normal, both eyes and all related structures Neck Neck: Yes normal visual inspection and Yes trachea midline Chest Chest palpation & inspection: normal inspection of the chest Resp Effort & Inspection: normal respiratory effort and able to speak in complete sentences Cardio Rate: regular rate GI Inspection: Yes normal to inspection General: Yes no CVA tenderness Back/Spine/Pelvis Back: no CVA tenderness Skin General skin exam: no rashes or lesions noted Neuro General: patient oriented x3 Extrem General: Yes normal to inspection Psych Appearance: grossly normal and well kempt Mental Status: mental status grossly normal Speech and movement: Normal speech and movement present and Clear speech present Affect: normal affect Attitude: cooperative Thought process: Normal thought process present Thought content: Normal thought content present Insight: Fair insight present (Psych) Judgement: Fair judgement present (Psych) Office Procedures Post Void Residual Post Residual Void Post Void Residual (PVR): 0 18142-[id number] Void Residual by ultrasound Results AMB Urinalysis, Automated UA Leukoctes 0 Bree/uL Last Edit by [employer] on 12/26/23 13:10 UA Nitrite Negative Last Edit by [employer] on 12/26/23 13:10 UA Urobilinogen 0.2 mg/dL Last Edit by [employer] on 12/26/23 13:10 UA Protein 0 mg/dL Last Edit by [employer] on 12/26/23 13:10 UA pH 6.0 Last Edit by [employer] on 12/26/23 13:10 UA Blood 0 Chris/uL Last Edit by [employer] on 12/26/23 13:10 UA Specific [place] 1.015 Last Edit by [employer] on 12/26/23 13:10 UA Ketone Last Edit by [employer] on 12/26/23 13:10 UA Bilirubin 0 mg/dL Last Edit by [employer] on 12/26/23 13:10 UA Glucose 0 mg/dL Last Edit by [employer] on 12/26/23 13:10 Results Reviewed Results Reviewed: Laboratory Last Values Urine pH (Auto) 6.0 12/26/23 12:51 Specific [place] (Auto) 1.015 12/26/23 12:51 Urine Protein (Auto) 0 mg/dL 12/26/23 12:51 Glucose (UA)(Auto) 0 mg/dL 12/26/23 12:51 Urine Blood (Auto) 0 Chris/uL 12/26/23 12:51 Urine Nitrite (Auto) Negative 12/26/23 12:51 Urine Bilirubin (Auto) 0 mg/dL 12/26/23 12:51 Urine Urobilinogen (Auto) 0.2 mg/dL 12/26/23 12:51 Leukocyte Esterase (Auto) 0 Bree/uL 12/26/23 12:51 Assessment & Plan Assessment & Plan (1) Urinary frequency: Code(s): R35.0 - Frequency of micturition Category: Medical Plan In office urinalysis results reviewed with the patient today; as noted above. PVR 0 mL. Patient will continue with surveillance monitoring. She reports feeling symptoms very day to day. Discussed bladder triggers/irritants. Discussed further treatment options. We discussed at length importance of managing diabetes for improvement lower urinary tract symptoms as well as overall health and well-being and correlation of uncontrolled diabetes with lower urinary tract symptoms. Recent retroperitoneal ultrasound results reviewed with the patient today; as noted above. Follow-up in 6 months with PVR; or sooner with any issues, concerns, and or questions. Orders: Orders AMB Urinalysis Automated Today Z13.9 - Encounter for screening, unspecified AMB Post Void Residual by ultrasound Today R35.0 - Frequency of micturition Patient Instructions: The patient had an opportunity to ask questions regarding the treatment plan. All questions were answered. Physical exam, labs, and imaging were discussed and reviewed in detail. As well as risks, benefits, and discussion of treatment choices. No major barriers to understanding were identified. The patient expressed understanding and agreement with the above treatment plan. The patient was made aware they should contact our office by phone for worsening of their current condition, the appearance of new symptoms, or with any questions or concerns. Compliance is encouraged with any medications and follow up testing that is ordered. It is a privilege to be allowed the opportunity to participate in? your urological care.? Again, if you have any questions or concerns If you have any questions or concerns please do not hesitate to contact me. The office is [phone]. This note is constructed using voice recognition software. While every effort has been made to ensure accuracy wash helper errors may have been included. Yours sincerely, ROMA Magaña Coding Level of Care Code Est Pt Level 3 (90771) Diagnoses Urinary frequency R35.0 CPT Codes Post Residual Void - PVR CPT Code: 88399-Mezj Void Residual by ultrasound ([id number])
== END 2023-12-26 13:27 | disposition home or self-care (01) ==
LOC: HO.HUSH 12:25
PROVIDERS: PCP Internal Medicine; Visit Provider Nurse Practitioner Family
DX: R35.0 Frequency of micturition (principal); Z13.9 Encounter for screening, unspecified
CPT/HCPCS: 99213

== ENCOUNTER → 2023-12-26 12:25 | Outpatient (BNVA) | payer MEDICARE, MEDICAID, SELFPAY | PROVIDERS: PCP Internal Medicine; Visit Provider Nurse Practitioner Family | DX: R35.0 Frequency of micturition (principal) | CPT/HCPCS: 51798; 81003; 99212 ==

== ENCOUNTER 2024-01-27 13:22 | Outpatient (AMB) | payer MEDICARE, MEDICAID, SELFPAY ==
[2024-01-27 13:41] VITALS: BMI 23.6
--- NOTE | 2024-01-27 13:41 | MHC.OFFVIS ---
Vital Signs 01/27/24 13:41 Height 5 ft 1 in Weight 125 lb BMI 23.6 Intake Visit Reasons: Newprob-Left hand pain/top of thumb Intake Note: Ana is a 63 yo right hand dominant female who presents today with complaints of a left thumb pain that began about 2 months ago. Patient complains of numbness without tingling on the dorsal aspect of the left thumb. She reports applying an arthritis cream with mild relief. She has been experiencing difficulties grabbing and gripping things. She also reports pain on the radial aspect of the left wrist. Denies any prior injuries or surgeries to the left hand. Clinical Research Specialist Required: Yes Clinical Research Specialist Name: [id number] Allergies alogliptin Allergy (Unknown, Verified 01/27/24 13:49) contipation sitagliptin [Januvia] Allergy (Unknown, Verified 01/27/24 13:49) vomiting HPI HPI Newprob-Left hand pain/top of thumb: Details: Patient is a 63-year-old female who presents for evaluation of left thumb and wrist pain, ongoing for approximately 2-3 months. The patient states that this pain is primarily located base of the thumb, but radiates into the forearm and up into the digit itself. The patient states that this pain worsens when she attempts to lift her grandchildren. Patient also reports that she has some occasional numbness at the base of the thumb. Patient expresses that she is apprehensive about any injections or surgical intervention, would like to proceed with the most conservative treatment measure possible 1st. No other acute complaints or concerns at this time. [facility] Medical History Hypercalcemia Hyperlipidemia, unspecified Essential hypertension Type 2 diabetes mellitus with unspecified complications Surgical History No pertinent past surgical history Family History Mother No problems noted. Father Diabetes Brother Diabetes Sister Diabetes Social History Household Members: Family Household Members Other:: daughter Alcohol intake: current Alcohol intake frequency: does not drink Patient Tobacco Use Status: Never used Tobacco Physical Exam Vital Signs: BMI result Body Mass Index 23.6 Extrem Other: Patient is alert, oriented, and in no acute distress. Neuro: Normal sensation of the tips of all digits of the left hand at this time Vascular: Cap refill brisk Pain: Patient reports discomfort to palpation of the radial styloid, but not severe Negative CMC grind Positive Kishan on the left No tenderness to palpation of the ulnar styloid, DRUJ, or elsewhere on the left hand or wrist ROM: Patient is able to make a closed fist and extend all digits of the left hand fully and without difficulty Skin: No lacerations or abrasions. General: No ecchymosis, erythema, or evidence of infection. Psych: Appears grossly normal Affect normal Attitude cooperative Assessment & Plan Assessment & Plan (1) De Quervain's tenosynovitis, left: Code(s): M65.4 - Radial styloid tenosynovitis [de Quervain] Category: Medical (2) Numbness and tingling of left hand: Code(s): R20.0 - Anesthesia of skin; R20.2 - Paresthesia of skin Category: Medical Plan 1. De Quervain tenosynovitis, left Patient is educated about this condition and the treatment options available, namely racing and PT, injections, and minor surgery The patient would like to proceed with bracing and occupational therapy 1st to see if this will relieve her symptoms without the need for any injections or surgery Patient was provided with a comfort cool thumb spica splint and a referral to occupational therapy today Patient is educated that if in 6-8 weeks after starting physical therapy, her symptoms have not improved, she should call our office for a follow-up appointment and discussion of potential injection or surgical intervention Patient was amenable to to this plan 2. Numbness and tingling of left hand No EMG or nerve conduction study on file At this time, patient was referred for EMG and nerve conduction study to assess the health of the nerves of the left upper extremity Patient will follow-up after EMG and nerve conduction study for results review and discussion of further treatment options if indicated Patient will follow-up after EMG and nerve conduction study, sooner with any acute concerns Orders: Orders OT Evaluation and Treatment 01/27/24 M65.4 - Radial styloid tenosynovitis [de Quervain] NE electromyogram (EMG) 01/27/24 R20.0 - Anesthesia of skin, R20.2 - Paresthesia of skin NE nerve conduction velocity 01/27/24 R20.0 - Anesthesia of skin, R20.2 - Paresthesia of skin Coding Level of Care Code New Pt Level 3 (34697) Diagnoses De Quervain's tenosynovitis, left M65.4 Numbness and tingling of left hand R20.0; R20.2
== END 2024-01-27 14:13 | disposition home or self-care (01) ==
PROVIDERS: PCP Internal Medicine
DX: M65.4 Radial styloid tenosynovitis [de Quervain] (principal); R20.0 Anesthesia of skin; R20.2 Paresthesia of skin
CPT/HCPCS: 99203

== ENCOUNTER → 2024-01-27 13:22 | Outpatient (BNVA) | payer MEDICARE, MEDICAID, SELFPAY | PROVIDERS: PCP Internal Medicine; Visit Provider Physician Assistant | DX: M65.4 Radial styloid tenosynovitis [de Quervain] (principal); R20.0 Anesthesia of skin; R20.2 Paresthesia of skin | CPT/HCPCS: 99202 ==

== ENCOUNTER 2024-04-04 10:18 | Outpatient (REF) | payer MEDICARE, MEDICAID, SELFPAY ==
--- NOTE | 2024-04-04 10:24 | EMG_ITS ---
Chief complaint: Pain and numbness left 1st and 2nd digits Reason for referral: Evaluate for Carpal Tunnel Syndrome Referred by: Rajendra VERGARA Procedure done: Left upper extremity NCS/EMG Precautions and/or limitations: None The limb temperature was monitored continuously and remained between 32-36 degrees C during the performance of the NCS. Nerve Conduction Studies Anti Sensory Summary Table ?Stim Site NR Onset (ms) Norm Onset (ms) Peak (ms) Norm Peak (ms) O-P Amp (?V) Norm O-P Amp Site1 Site2 Delta-0 (ms) Dist (cm) Jamal (m/s) Norm Jamal (m/s) Left Median Anti Sensory (2nd Digit) Wrist ? 3.3 4.0 <3.6 26.7 >10 Wrist 2nd Digit 3.3 14.0 42 Left Ulnar Anti Sensory (5th Digit) Wrist ? 2.8 3.4 <3.7 33.0 >15.0 Wrist 5th Digit 2.8 14.0 50 Motor Summary Table ?Stim Site NR Onset (ms) Norm Onset (ms) O-P Amp (mV) Norm O-P Amp iAmp (mV) Amp (1st) (%) Site1 Site2 Delta-0 (ms) Dist (cm) Jamal (m/s) Norm Jamal (m/s) Left Median Motor (Abd Poll Brev) Wrist ? 3.6 <3.9 9.7 >4.5 11.9 100.0 Elbow Wrist 4.1 20.0 49 >45 Elbow ? 7.7 8.3 10.4 85.6 Left Ulnar Motor (Abd Dig Minimi) Wrist ? 3.0 <3.0 9.8 >5 12.6 100.0 B Elbow Wrist 3.2 17.0 53 >45 B Elbow ? 6.2 9.5 11.9 96.9 A Elbow B Elbow 1.9 10.0 53 >45 A Elbow ? 8.1 8.9 11.1 90.8 Comparison Summary Table ?Stim Site NR Peak (ms) Norm Peak (ms) P-T Amp (?V) Site1 Site2 Delta-P (ms) Norm Delta (ms) Left Median/Radial Dig I Comparison (Digit 1 - 10cm) Median ? 3.0 <2.9 92.9 Median Radial 0.7 Radial ? 2.3 <2.8 24.5 EMG ?Side Muscle Nerve Root Ins Act Fibs Psw Amp Dur Poly Recrt Int Pat Comment Left 1stDorInt Ulnar C8-T1 Nml Nml Nml Nml Nml 0 Nml Complete Left FlexCarRad Median C6-7 Nml Nml Nml Nml Nml 0 Nml Complete Left Biceps Musculocut C5-6 Nml Nml Nml Nml Nml 0 Nml Complete Left Triceps Radial C6-7-8 Nml Nml Nml Nml Nml 0 Nml Complete Left Deltoid Axillary C5-6 Nml Nml Nml Nml Nml 0 Nml Complete FINDINGS: Left median sensory nerve showed prolonged peak latency. Significant interlatency difference between left median and radial sensory nerves. All other nerves tested were within normal. Concentric needle EMG was performed in selected muscles of the left upper extremity. Study did not reveal signs of electric abnormalities as shown in the table above. IMPRESSION: 1. This is an abnormal study. 2. There is electrodiagnostic evidence for left mild median neuropathy at the wrist, consistent with carpal tunnel syndrome. 3. There is no electrodiagnostic evidence for ulnar neuropathy, brachial plexopathy, or cervical radiculopathy. Thank you for your kind referral. Meghna Miramontes MD, ZENOBIA Board Certified, [place] Board [employer] and Rehabilitation (ABPMR) Board Certified, [place] Board of Electrodiagnostic Medicine (ABEM) [place] [id number] [facility]
== END 2024-04-04 10:19 | disposition home or self-care (01) ==
LOC: HO.NEURO 10:18
PROVIDERS: PCP Internal Medicine
DX: R20.0 Anesthesia of skin (principal); R20.2 Paresthesia of skin
CPT/HCPCS: 95886; 95909

== ENCOUNTER → 2024-04-04 10:24 | Outpatient (BNV) | payer MEDICARE, MEDICAID, SELFPAY | PROVIDERS: PCP Internal Medicine; Visit Provider Physical Medicine & Rehabilitation | DX: G56.02 Carpal tunnel syndrome, left upper limb (principal) | CPT/HCPCS: 95886; 95909 ==

== ENCOUNTER 2024-04-17 14:17 | Outpatient (AMB) | payer MEDICARE, MEDICAID, SELFPAY ==
--- NOTE | 2024-04-17 14:24 | A.OFFVIS_ITS ---
Vital Signs 04/17/24 14:31 Height 5 ft 1 in Weight 125 lb 10.616 oz BMI 23.7 BP 100/60 Blood Pressure Location Rt brachial Position Sitting Pulse 72 Pulse Source Pulse Oximeter Intake Visit Reasons: T2DM Intake Note: Patient presents today for a follow up on Type 2 Diabetes Mellitus: Carbonating Stone Cleaner Language Reid Last Diabetic eye exam was on: DUE Last Podiatry exam was on: Does not see a Retail Performance Coach Most recent HbA1c: 8.6%, 04/17/2024 Random Glucose- 106 mg/dL, Today Carbonating Stone Cleaner Required: Yes Carbonating Stone Cleaner Language: Reid Carbonating Stone Cleaner Services: Carbonating Stone Cleaner Present (voice only via Vpon low pressure kettle operator nazia) Carbonating Stone Cleaner Name: Zina #[id number] Information Interpreted: non-clinical & clinical Accompanied by: Self / Same As Patient Allergies alogliptin Allergy (Unknown, Verified 04/17/24 14:37) contipation sitagliptin [Januvia] Allergy (Unknown, Verified 04/17/24 14:37) vomiting Medication List - Last Reconciled 04/19/24 by Lacy Shook NP atorvastatin 80 mg PO DAILY blood sugar diagnostic (FreeStyle Test strips) As directed blood-glucose meter,continuous (Dexcom G6 Supply Chain Development Manager) As directed blood-glucose sensor (Dexcom G6 Sensor device) As directed blood-glucose transmitter (Dexcom G6 Transmitter device) As directed cholecalciferol (vitamin D3) 50 mcg PO DAILY 30 days cyanocobalamin (vitamin B-12) 1,000 mcg PO DAILY ferrous sulfate 325 mg PO DAILY glucagon 3 mg/actuation (Baqsimi) 3 mg intranasal ONCE insulin glargine (Lantus Solostar U-100 Insulin) 14 units (0.14 mL) subcut QPM insulin lispro (Humalog KwikPen (U-100) Insulin) Breakfast 6 units, lunch 13 units, supper 6 units subcutaneously 3 times a day; lancets (FreeStyle Lancets) As directed 3 times a day latanoprost 0.005% 1 drp ophthalmic (eye) lisinopril 10 mg PO DAILY loratadine 10 mg PO DAILY PRN metformin 1,000 mg PO BID omeprazole 40 mg PO DAILY pen needle, diabetic (BD Chanell 2nd Gen Pen Needle) As directed once a day rosuvastatin 40 mg PO DAILY HPI Comments Details: 63 YO F who is seen in f/u for T2DM. She was last seen by myself 11/30/23. Hgb A1C 04/17/24:8.6% Hgb A1C 04/17/23 8%, previous 7.1% Initially diagnosed with T2DM in 20 yrs . Was initially started on treatment with metformin. Was on Trulicity 0.75 mg weekly but she was losing too much weight due to poor appetite. Her weight has stabilized Current regime: Metformin 1000 mg BID Lantus 14 units Humalog breakfast 6 units lunch 13 units supper 6 units no recent lows Treats low with sugar Freestyle pallavi sensor 3 average glucose: 183 14 day continuous glucose sensor report reviewed Time CGM active 58 % TIme in ranges: 11 % very high (above 250) 33 % high (181-250) 56 % in range (70-180] 0 % low (69-55) 0 % very low (below 54) 28.4 Glucose variability (target <36%) Interpretation of CGMS [no lows with numbers in good range by morning slight increase in numbers later in the day and overnight ] Family history of T2DM in father and siblings . Has eyes checked yearly, last eye exam 03/2024 denies retinopathy goes every 4 months for glaucoma Denies neuropathy, ,does not see podiatry. + nephropathy, on LEIF. 05/2023 urine microalbumin: 5.0 eGFR 56 Has HLD, on statin. 05/2023: LDL 59 Denies CAD. She reports occasional chest pain left sided with no radiation to jaw or arm. Last 5 minutes, occurs when she lies down non exertional. She plans to discuss with her PCP Saw CDE for sensor Has been seen by nutrition in the past and follows a balanced diet. She was seen by [facility] endocrinology as she was not able to get an appointment here for slightly elevated calcium and PTH. She reports she had a bone density test done and she was advised her vitamin-D was low and she has been started on 2000 IU use daily. This was refilled today and another request was sent to [facility] for labs 09/14/23 calcium 9.8 albumin 4.5 ionzed calcium 5.2 pth 45 vit d 55.1 up from 24.2 08/17/23 [facility] Medical History (Updated 04/17/24 @ 15:38 by Lacy Shook NP) Atypical chest pain Low vitamin D level Hypercalcemia Hyperlipidemia, unspecified Essential hypertension Type 2 diabetes mellitus with unspecified complications Surgical History No pertinent past surgical history Family History Mother No problems noted. Father Diabetes Brother Diabetes Sister Diabetes Social History Household Members: Family Household Members Other:: daughter Alcohol intake: current Alcohol intake frequency: does not drink Patient Tobacco Use Status: Never used Tobacco Physical Exam Vital Signs: Last Vital Signs Pulse 72 04/17/24 14:31 BP 100/60 04/17/24 14:31 BMI result Body Mass Index 23.7 Const Other: Absence of Cushingoid features. Absence of acromegalic features. Neck exam reveals nl size thyroid about 15 gms. No thyroid nodules palpable. Heart S1 S2, Reg R/R. No M/R G. Skin exam reveals absence of vitiligo or acanthosis nigricans. Visual exam of foot performed. No ulcerations or open lesions. No inter digit maceration or fissuring. No onychomycosis, + callous formation over 5th tarsal bone.Sensation intact to monofilament exam. Vibratory sensation is normal with 128 Hz tuning fork. Office Procedures Glucose Monitoring Details Details: See [facility] [address] - Glucose monitoring, continuous-physician I&R Procedure code (CPT) selection complete Results AMB Hemoglobin A1c AMB Hemoglobin A1c 8.6 % Last Edit by DEB Montes on 04/17/24 15:06 Results Reviewed Results Reviewed: Laboratory Last Values Glucose (Clinic) 106 mg/dL (60-115) 04/17/24 14:38 Hgb A1c (Clinic) 8.6 % (4.0-6.0) H 04/17/24 15:05 Assessment & Plan Assessment & Plan (1) Type 2 diabetes mellitus with unspecified complications: Code(s): E11.8 - Type 2 diabetes mellitus with unspecified complications Category: Medical Plan: 63-year-old diabetic with A1c in the office today of 8.6%. [place] and was not following any particular diet. She has been attempting to decrease her rice portion. Refer to podiatry New dose Metformin 1000 mg BID Lantus 16 units Humalog breakfast 6 units lunch 13 units supper 8 units (6 units if small meal) (2) Atypical chest pain: Code(s): R07.89 - Other chest pain Category: Medical Plan: right sided non exertional without radiation primariy occuring when she lays down at night. 911 if reoccurs and does not go way after 5 minutes She will discuss with her PCP Orders: Orders Calcium 04/17/24 E83.52 - Hypercalcemia Calcium, Ionized 04/17/24 E83.52 - Hypercalcemia AMB Hemoglobin A1c 04/17/24 E11.8 - Type 2 diabetes mellitus with unspecified complications AMB Glucose Monitoring Today E11.8 - Type 2 diabetes mellitus with unspecified complications Vitamin D 25-OH Total 04/17/24 E11.8 - Type 2 diabetes mellitus with unspecified complications, R79.89 - Other specified abnormal findings of blood chemistry Basic Metabolic Panel 04/17/24 E11.8 - Type 2 diabetes mellitus with unspecified complications Albumin Level 04/17/24 E83.52 - Hypercalcemia Referrals Podiatry Referral E11.8 - Type 2 diabetes mellitus with unspecified complications Medications: Changed From insulin lispro (Humalog KwikPen (U-100) Insulin) Breakfast 6 units, lunch 13 units, supper 6 units subcutaneously 3 times a day; E11.8 - Type 2 diabetes mellitus with unspecified complications To insulin lispro (Humalog KwikPen (U-100) Insulin) Breakfast 6 units, lunch 13 units, supper 8 units subcutaneously 3 times a day; E11.8 - Type 2 diabetes mellitus with unspecified complications Refilled insulin glargine (Lantus Solostar U-100 Insulin) 14 units (0.14 mL) subcut QPM 15 mL 5RF Patient Instructions: The patient was counseled to always carry a source of sugar and on the rule of 15's: Take 3 glucose tablets and repeat again in 15 minutes if blood sugar is not in normal range. Continue to repeat every 15 minutes until blood sugar is normal. Check your feet daily looking for any signs of infection, ulceration and seek medical attention if this occurs. Break in shoes gradually and do not wear open-toed shoes or walk barefooted. Coding Level of Care Code Est Pt Level 4 (90074) Complex EM visit Add On G2211 Diagnoses Type 2 diabetes mellitus with unspecified complications E11.8 Atypical chest pain R07.89 CPT Codes Details - CPT: 86175 - Glucose monitoring, continuous-physician I&R ([id number]) Time Spent (min) 30 Comment Time spent reviewing labs/provider notes, face to face, chart doc
[2024-04-17 14:31] VITALS: BP 100/60; PULSE 72; BMI 23.7
[2024-04-17 14:43] LABS: Glucose, Whole Blood 106 mg/dL (60-115)
== END 2024-04-17 14:58 | disposition home or self-care (01) ==
PROVIDERS: PCP Internal Medicine; Visit Provider Nurse Practitioner Adult Health
DX: E11.8 Type 2 diabetes mellitus with unspecified complications (principal); R07.89 Other chest pain
CPT/HCPCS: 95251; 99214; G2211

== ENCOUNTER 2024-05-02 10:14 | Outpatient (AMB) | payer MEDICARE, MEDICAID, SELFPAY ==
--- NOTE | 2024-05-02 10:15 | MHC.OFFVIS ---
Vital Signs 05/02/24 10:16 Height 5 ft 1 in Weight 125 lb BMI 23.6 Intake Visit Reasons: OV- Left hand EMG review Intake Note: Ana is a 63 year old left hand dominant, Tamil speaking, female who presents today for an EMG review of her left upper extremity. IMPRESSION: 1. This is an abnormal study. 2. There is electrodiagnostic evidence for left mild median neuropathy at the wrist, consistent with carpal tunnel syndrome. 3. There is no electrodiagnostic evidence for ulnar neuropathy, brachial plexopathy, or cervical radiculopathy. Stationary Fireman Required: Yes Stationary Fireman Language: Reid Stationary Fireman Name: [id number] Allergies alogliptin Allergy (Unknown, Verified 05/02/24 10:20) contipation sitagliptin [Januvia] Allergy (Unknown, Verified 05/02/24 10:20) vomiting HPI HPI OV- Left hand EMG review: Details: Ana is a 63 year old left hand dominant, Tamil speaking, female who presents today for an EMG review of her left upper extremity. IMPRESSION: 1. This is an abnormal study. 2. There is electrodiagnostic evidence for left mild median neuropathy at the wrist, consistent with carpal tunnel syndrome. 3. There is no electrodiagnostic evidence for ulnar neuropathy, brachial plexopathy, or cervical radiculopathy. [facility] Medical History (Updated 05/02/24 @ 12:04 by URSULA Dia) Atypical chest pain Low vitamin D level Hypercalcemia Hyperlipidemia, unspecified Essential hypertension Type 2 diabetes mellitus with unspecified complications Surgical History No pertinent past surgical history Family History Mother No problems noted. Father Diabetes Brother Diabetes Sister Diabetes Social History Household Members: Family Household Members Other:: daughter Alcohol intake: current Alcohol intake frequency: does not drink Patient Tobacco Use Status: Never used Tobacco Review of Systems Const All systems reviewed & are unremarkable except as noted in HPI and below Physical Exam Vital Signs: BMI result Body Mass Index 23.6 Const Other: Absence of Cushingoid features. Absence of acromegalic features. Neck exam reveals nl size thyroid about 15 gms. No thyroid nodules palpable. Heart S1 S2, Reg R/R. No M/R G. Skin exam reveals absence of vitiligo or acanthosis nigricans. Visual exam of foot performed. No ulcerations or open lesions. No inter digit maceration or fissuring. No onychomycosis, + callous formation over 5th tarsal bone.Sensation intact to monofilament exam. Vibratory sensation is normal with 128 Hz tuning fork. Extrem Other: Patient is alert, oriented, and in no acute distress. Neuro: Normal sensation of the tips of all digits of the left hand at this time Vascular: Cap refill brisk Pain: Patient reports discomfort to palpation of the radial styloid, but not severe Negative CMC grind Positive Kishan on the left No tenderness to palpation of the ulnar styloid, DRUJ, or elsewhere on the left hand or wrist ROM: Patient is able to make a closed fist and extend all digits of the left hand fully and without difficulty Skin: No lacerations or abrasions. General: No ecchymosis, erythema, or evidence of infection. Psych: Appears grossly normal Affect normal Attitude cooperative Assessment & Plan Assessment & Plan (1) Left carpal tunnel syndrome: Code(s): G56.02 - Carpal tunnel syndrome, left upper limb Category: Medical Plan 1. Carpal tunnel syndrome, left Intermittent, daily, worse at night I educated the patient about the condition. I discussed both operative and nonoperative treatment options. The risks and benefits of operative treatment were discussed with the patient and the patient wishes to proceed with surgery. These risks include, but are not limited to, risk of damage to blood vessels, nerves, tendons, infection, recurrence, incomplete relief of preoperative symptoms, persistent pain, possible need for further surgery, and the risks associated with regional blocks and/or anesthesia. However, the patient states she will need to consult with her son before signing up for any surgery, as she feels this is a large decision that needs to have family involved Patient is educated that she should not wait until she is experiencing dense numbness in the left hand, as there is an increased risk of not getting normal sensation back even with surgery if this happens. Patient denies diabetes, blood thinners, asthma, heart issues, lung issues, kidney issues, or current smoking. Coding Level of Care Code Est Pt Level 4 (39682) Diagnoses Left carpal tunnel syndrome G56.02
[2024-05-02 10:16] VITALS: BMI 23.6
--- OUTSIDE RECORDS SUMMARY | 2024-05-02 11:10 | XMS_ITS | Encounter Summary ---
Author Organization [employer] Address [address] [place] [address] Care Team Providers Care Director Online Marketing Name Role Phone Unavailable Primary Care Provider Unavailabl e Encounter Details Date Type Department Care Team (Latest Contact Info) Description 04/05/2018 [facility]VERSION[facility] Dental, Provider, DDS Social History Tobacco Use Types Packs/Day Years Used Date Smoking Tobacco: Never Assessed Comments Unknown Sex and Gender Information Value Date Recorded Sex Assigned at Female 04/01/2022 3:27 PM EST Legal Sex Female 5:35 PM EDT Gender Identity Female 04/01/2022 3:27 PM EST Sexual Orientation Choose not to disclose 2022 9:03 AM EDT documented as of this encounter Plan of Treatment Upcoming Encounters Date Type Department Care Team (Late st Contact Info) Description 05/03/2024 3:00 PM EST Office Visit [facility] DENTAL [address] [place] [id number] April Ziegler documented as of this encounter Visit Diagnoses Not on filedocumented in this encounter
--- OUTSIDE RECORDS SUMMARY | 2024-05-02 11:10 | XMS_ITS | Clinical Summary ---
Author Organization [email or web address] Address [address] [facility] [address] [place] [address] Care Team Providers Care Porcelain Waxer Name Role Phone Unavailable Primary Care Provider Unavailabl e Allergies Active Allergy Reactions Criticality Noted Date Comments Alogliptin 03/16/2022 Sitagliptin 03/16/2022 Medications metFORMIN (Glucophage) 1000 MG tablet Take 1,000 mg by mouth. Active gabapentin (Neurontin) 100 MG capsule 03/23/2022 Active insulin glargine (Lantus) 100 UNIT/ML injection Inject 12 Units under the skin. Active lisinopril 10 MG tablet Take 10 mg by mouth. 02/26/2022 Active loratadine (Claritin) 10 MG tablet Take 10 mg by mouth in the morning. 07/18/2021 Active omeprazole (PriLOSEC) [address] capsule Take 20 mg by mouth in the morning. 04/30/2021 Active rosuvastatin (Crestor) 40 MG tablet 12/03/2021 Active dulaglutide (Trulicity) 0.75 MG/0.5ML solution pen-injector Inject 0.75 mL under the skin per week. Active latanoprost (Xalatan) 0.005 % ophthalmic solution 02/12/2023 Active Active Problems Problem Noted Date Diagnosed Date Essential (primary) hypertension 03/16/2022 Type 2 diabetes mellitus with diabetic nephropat hy 03/16/2022 Encounters Date Type Department Care Team Description 02/01/2024 2:00 PM EST Office Visit [facility] D[facility] [address] [place] [address] Omaira Jenkins DDS Full coverage crown needed for root canal-treated tooth (Primary Dx) from Last 3 Months Social History Tobacco Use Types Packs/Day Years Used Date Smoking Tobacco: Never Smokeless Tobacco: Never Tobacco Cessation:Counseling Given: Not Answered Comments Unknown Sex and Gender Information Value Date Recorded Sex Assigned at Female 04/01/2022 3:27 PM EST Legal Sex Female 5:35 PM EDT Gender Identity Female 04/01/2022 3:27 PM EST Sexual Orientation Choose not to disclose 2022 9:03 AM EDT Plan of Treatment Upcoming Encounters Date Type Department Care Team (Late st Contact Info) Description 05/03/2024 3:00 PM EST Office Visit [facility] DENTAL [address] [place] [id number] April Ziegler Health Maintenance Due Date Last Done Comments CT Colonography 1958 Colonoscopy 1958 Colorectal Cancer Screening 1958 Depression Screening 1958 Diabetes: Hemoglobin A1C 1958 FIT DNA/Cologuard 1958 FIT 1958 FOBT 1958 Lipid Panel 1958 SDOH Screening 1958 Sigmoidoscopy 1958 Diabetes: Foot Exam 1968 Eye Exam 1968 Alcohol/Substance Use Screening 1970 Hepatitis C Screening 1976 Pap Smear 12/14/1979 Cervical Cancer Screening 1988 HPV/Cotest 1988 Mammogram 1998 RSV Patients and Patients Aged 60 years or older (1 - Risk 60-74 years 1-dose series) 2018 Dental Oral Exam 09/30/2022 04/01/2022, , 12/10/2020, Additional history exists Dental X-Ray: Full Mouth 06/06/2023 021, 04/22/2016, 10/24/2007 COVID-19 Vaccine ( season) 2023 07/30/2021, 07/28/2021, 08/13/2020, Additional history exists Influenza Vaccine (#1) 2023 02/12/2021 Dental X-Ray: Bitewings 02/25/2024 02/24/20 23, 06/19/2021, 06/04/2020, Additional history exists Dental Prophylaxis 03/15/2024 09/13/2023, 1 04/25/2022, 04/01/2022, Additional history exists Tobacco Screening 09/12/2024 09/13/2023 DTaP/Tdap/Td Vaccines (2 - Td or Tdap) 01/01/2032 12/31/2021 Pneumococcal Vaccine: 50+ Years Completed 12/31/2021 Zoster Vaccines Completed 06/16/2022, 05/30/2021 Meningococcal Vaccine Aged Out 07/15/2022 No harmeet lorena eligible based on patient's age to complete this topic Hepatitis A Vaccines Aged Out 08/07/2022 No long er eligible based on patient's age to complete this topic HIB Vaccines Aged Out No longer eligi ble based on patient's age to complete this topic HPV Vaccines Aged Out No longer eligi ble based on patient's age to complete this topic Hepatitis B Vaccines Aged Out No long er eligible based on patient's age to complete this topic IPV Vaccines Aged Out No longer eligi ble based on patient's age to complete this topic RSV under 20 months Aged Out No longe r eligible based on patient's age to complete this topic Rotavirus Vaccines Aged Out No longer eligible based on patient's age to complete this topic Procedures Procedure Name Priority Date/Time Associated Diagnosis Comments ADJUNCTIVE GENERAL SERVICES - PROFESSIONAL VISITS - CASE PRESENTATION, SUBSEQUENT TO DETAILED AND EXTENSIVE TREATMENT PLANNING Routine 02/01/2024 2:00 PM EST 6 CROWN - PORCELAIN/CERAMIC Routine 02/01/2024 2:00 PM EST Full PROPHYLAXIS - ADULT Routine 024 11:00 AM EDT BITEWINGS - 4 RADIOGRAPHIC IMAGES Routine 02/23/2023 9:40 AM EST PERIODIC ORAL EVALUATION - ESTABLISHED PATIENT Routine 04/01/2022 3:30 PM EST Encounter for dental examination DIAGNOSTIC - DIAGNOSTIC IMAGING - INTRAORAL - COMPREHENSIVE SERIES OF RADIOGRAPHIC IMAGES Routine 06/04/2020 12:00 AM EST from Last 3 Months or Most Recently Relevant to Health Maintenance Insurance [facility] MEDICAID STAND ADULT
--- OUTSIDE RECORDS SUMMARY | 2024-05-02 11:10 | XMS_ITS | Encounter Summary ---
Author Organization [employer] Address [address] [facility] [address] [place] [address] Care Team Providers Care Cigarette Making Machine Catcher Name Role Phone Unavailable Primary Care Provider Unavailabl e Encounter Details Date Type Department Care Team (Latest Contact Info) Description 04/30/2019 [facility] Dental, Provider, DDS Social [...] Description 05/03/2024 3:00 PM EST Office Visit [facility] DENTAL [address] [place] [phone] April Ziegler documented as of this encounter Visit Diagnoses Not on filedocumented in this encounter
--- OUTSIDE RECORDS SUMMARY | 2024-05-02 11:10 | XMS_ITS | Encounter Summary ---
Author Organization [employer] Address [address] [facility] [address] [place] [address] Care Team Providers Care Feed Adviser Name Role Phone Unavailable Primary Care Provider Unavailabl e Encounter Details Date Type Department Care Team (Latest Contact Info) Description 06/19/2021 [facility] Dental, Provider, DDS Social [...] Description 05/03/2024 3:00 PM EST Office Visit [facility] DENTAL [address] [place] [phone] April Ziegler documented as of this encounter Visit Diagnoses Not on filedocumented in this encounter
--- OUTSIDE RECORDS SUMMARY | 2024-05-02 11:10 | XMS_ITS | Clinical Summary ---
Author Organization [facility] Address [address] [place] [id number] Care Team Providers Care Headline Writer Name Role Phone Aravind Goodman MD Primary Care Provider [phone] Allergies Active Allergy Reactions Criticality Noted Date Comments Alogliptin 03/16/2022 Sitagliptin 03/16/2022 Medications metFORMIN (GLUCOPHAGE) 1000 MG tablet Take 1,000 mg by mouth in the morning and 1,000 mg in the evening. Take with meals. Active insulin glargine (LANTUS) 100 UNIT/ML injection Inject 12 Units under the skin every night Active lisinopril 10 MG tablet Take 10 mg by mouth 1 (one) time each day 02/26/2022 Active Active Problems Problem Noted Date Diagnosed Date Type 2 diabetes mellitus with diabetic nephropat hy 03/16/2022 Essential (primary) hypertension 03/16/2022 Type 2 diabetes mellitus wit h diabetic autonomic (poly)neuropathy 03/16/2022 Family History Medical History Relation Comments Diabetes Brother Diabetes Father Diabetes Sister Relation Status Comments Brother Father Sister Social History Tobacco Use Types Packs/Day Years Used Date Smoking Tobacco: Never Smokeless Tobacco: Never Tobacco Cessation:Counseling Given: Not Answered Alcohol Use Standard Drinks/Week Comments Never 0 (1 standard drink = 0.6 oz pur e alcohol) Comments Unknown Sex and Gender Information Value Date Recorded Sex Assigned at Not on file Legal Sex Female 3:49 PM EDT Gender Identity Not on file Sexual Orientation Not on file Last Filed Vital Signs Vital Sign Reading Time Taken Comments Blood Pressure 103/63 02/08/2023 3:16 PM EST Pulse 80 02/08/2023 3:16 PM EST Temperature - - Respiratory Rate - - Oxygen Saturation - - Inhaled Oxygen Concentration - - Weight 53.4 kg (117 lb 12.8 oz) 02/08/2023 3:16 PM EST Height - - Body Mass Index - - Plan of Treatment Upcoming Encounters Date Type Department Care Team (Late st Contact Info) Description 05/10/2024 2:30 PM EST Office [facility] [address] [place] [phone] Dmitry Najera MD [address] [facility] [address] [place] [id number] Health Maintenance Due Date Last Done Comments Breast Cancer Screening 1960 Pneumococcal Vaccine: 65+ Ye ars (1 of 2 - PCV) 1964 Pneumococcal Vaccine: Pediat rics (0 to 5 Years) and At-Risk Patients (6 to 64 Years) (1 of 2 - PCV) 1964 Colorectal Cancer Screening: Annual FOBT 12/14/2007 Colorectal Cancer Screening: Colonoscopy 12/14/2007 Colorectal Cancer Screening: Sigmoidoscopy 12/14/2007 Diabetes: Hemoglobin A1C 03/16/2022 Diabetes: Ophthalmology Exam 03/16/2022 Diabetes: Pedal Pulse Checked 03/16/2022 Diabetes: Sensory Foot Exam 03/16/2022 Diabetes: Visual Foot Exam 03/16/2022 Influenza Vaccine (#1) 2023 Hepatitis B Vaccine Aged Out No longe r eligible based on patient's age to complete this topic Insurance [place]ID [place] Care Teams Headline Writer Relationship Specialty Start Date End Date Aravind Goodman MD [address] [place], [place] PCP - General Endocrinology 12/16/21
--- OUTSIDE RECORDS SUMMARY | 2024-05-02 11:10 | XMS_ITS | Encounter Summary ---
Author Organization [facility] Address [address] [facility] 7t [place] [address] Care Team Providers Care Medical Sales Specialist Name Role Phone Unavailable Primary Care Provider Unavailabl e Encounter Details Date Type Department Care Team (Latest Contact Info) Description 12/10/2020 Abstract [facility] CONVERSIONS Dental, Provider, DDS Social [...] Description 05/03/2024 3:00 PM EST Office Visit [facility] DENTAL [address] [place] [phone] April Ziegler documented as of this encounter Visit Diagnoses Not on filedocumented in this encounter
== END 2024-05-02 10:39 | disposition home or self-care (01) ==
PROVIDERS: PCP Internal Medicine
DX: G56.02 Carpal tunnel syndrome, left upper limb (principal)
CPT/HCPCS: 99214

== ENCOUNTER → 2024-05-02 10:14 | Outpatient (BNVA) | payer MEDICARE, MEDICAID, SELFPAY | PROVIDERS: PCP Internal Medicine | DX: G56.02 Carpal tunnel syndrome, left upper limb (principal) | CPT/HCPCS: 99212 ==

== ENCOUNTER 2024-05-23 12:26 | Outpatient (AMB) | payer MEDICARE, MEDICAID, SELFPAY ==
--- NOTE | 2024-05-23 13:19 | MHC.AMDMED ---
Intake Intake Visit Reasons: 60 min Corrections Corporal Required: Yes Corrections Corporal Language: Tamil Corrections Corporal Services: Corrections Corporal Offered & Declined Corrections Corporal Name: No bilingual interpreter available Allergies alogliptin Allergy (Unknown, Verified 05/02/24 10:20) contipation sitagliptin [Januvia] Allergy (Unknown, Verified 05/02/24 10:20) vomiting HPI Comprehensive Diabetes Asmnt Most Recent Diabetes Results: Microalb/Creat Ratio 4.4 ug/mg cr (<30) 05/12/23 Cholesterol 119 mg/dL (<200) 05/12/23 HDL Cholesterol 48 mg/dL (>40) 05/12/23 Triglycerides 63 mg/dL (<150) 05/12/23 Creatinine 0.96 mg/dL (0.5-1.4) 04/17/24 Blood Urea Nitrogen 20 mg/dL (9-16) H 04/17/24 Sodium 141 mmol/L (135-145) 04/17/24 Potassium 3.7 mmol/L (3.3-5.1) 04/17/24 Chloride 108 mmol/L (96-108) 04/17/24 Carbon Dioxide 23 mmol/L (22-29) 04/17/24 Calcium 9.9 mg/dL (8.4-10.2) 04/17/24 AST 16 U/L (5-31) 05/12/23 ALT 10 U/L (0-31) 05/12/23 Total Protein 7.2 g/dL (6.5-8.0) 05/12/23 Albumin 4.3 g/dL (3.5-5.0) 04/17/24 [facility] Medical History (Updated 05/02/24 @ 12:04 by URSULA Dia) Atypical chest pain Low vitamin D level Hypercalcemia Hyperlipidemia, unspecified Essential hypertension Type 2 diabetes mellitus with unspecified complications Surgical History No pertinent past surgical history Family History Mother No problems noted. Father Diabetes Brother Diabetes Sister Diabetes Social History Household Members: Family Household Members Other:: daughter Alcohol intake: current Alcohol intake frequency: does not drink Patient Tobacco Use Status: Never used Tobacco Assessment & Plan Assessment & Plan (1) Type 2 diabetes mellitus with unspecified complications: Code(s): E11.8 - Type 2 diabetes mellitus with unspecified complications Plan: Personal Continuous Glucose Monitor: Patients CGM information reviewed, Pt uses come G6 with legal support assistant Sensor data: Hypoglycemia: ? 0% Hyperglycemia:? 35% Time in Range:? 65% Average glucose for the last 2 weeks?165 mg/dL Patient's last A1c on 04/17/2024 8.6%. Patient had visit with SENIOR SOFTWARE TEST ENGINEER on that date at SENIOR SOFTWARE TEST ENGINEER visit Humalog suppertime dose increased from 6 units to 8 units. Patient's glucose level have improved at this time GMI estimates a 7.2%. Patient reported for January and February she had been in [facility] and her carb intake had increased for those 2 months. Discussed with patient upgrading from Dexcom G6 to Dexcom G7. At this time patient declined she is going to visit her son in [place] for 2 months. At today's visit we discussed fasting related to Ramadan, patient given AADE handout with suggestions on how to handle fasting during Ramadan for people with diabetes. Patient able to insert sensor independently at home without issue.? Patient Instructions: Contact nutrition educator with questions or concerns Follow-up with nutrition educator 4 months Coding Level of Care Code Est Pt Level 1 (44002) Diagnoses Type 2 diabetes mellitus with unspecified complications E11.8
--- OUTSIDE RECORDS SUMMARY | 2024-05-23 15:15 | XMS_ITS | Encounter Summary ---
Author Organization [facility] Address [address] [place] [phone] Phone Care Team Providers Care Card Reader Name Role Phone Marleen Spain MD Primary Care Provider Unav ailable Reason for Visit * Reason Comments type 2 diabetes with diabetic nephropath y Encounter Details Date Type Department Care Team ([facility] st Contact Info) Description 05/10/2024 2:30 PM EST Office Visit [facility] [address] [place] [address] Dmitry Najera MD [address] [phone] Type 2 diabetes mellitus with diabetic nephropathy (HCC) (Primary Dx); Essential (primary) hypertension; Chronic kidney disease, stage 2 (mild) Social History Tobacco Use Types Packs/Day Years Used Date Smoking Tobacco: Never Smokeless Tobacco: Never Alcohol Use Standard Drinks/Week Comments Never 0 (1 standard drink = 0.6 oz pur e alcohol) Comments Unknown Sex and Gender Information Value Date Recorded Sex Assigned at Not on file Legal Sex Female 3:49 PM EDT Gender Identity Not on file Sexual Orientation Not on file documented as of this encounter Last Filed Vital Signs Vital Sign Reading Time Taken Comments Blood Pressure 107/66 05/10/2024 2:16 PM EST Pulse 86 05/10/2024 2:16 PM EST Temperature - - Respiratory Rate - - Oxygen Saturation - - Inhaled Oxygen Concentration - - Weight 61.7 kg (136 lb) 05/10/2024 2:16 PM EST Height - - Body Mass Index - - documented in this encounter Progress Notes * Dmitry Najera MD - 05/10/2024 2:30 PM EST Images from the original note were not included. Patient Name: Ana Avila, Female Date of : 1960, 63 y.o. Date: 05/10/2024 History of Present Illness Ms. Ana Avila is a 62-year-old female with past medical history of T2DM, HTN, chronic ibuprofen use, varicose veins, and HLD who presents to for follow up. Seen by my associate > 1 year ago The patient has CKD stage II Cr stable at 1.0-1.1 from 2021 - 2022. She has a bland urinalysis, no blood or protein. Her urine quantification shows nil protein. Father had renal failure, was on dialysis. It was thought to be diabetic nephropathy. Past Medical History Past Medical History: Diagnosis Date Diabetes mellitus without mention of complication, type II or unspecified type, not stated as uncontrolled (HCC) Essential hypertension Other and unspecified hyperlipidemia Past Surgical History History reviewed. No pertinent surgical history. Family History Family History Problem Relation Age of Onset Diabetes Father Diabetes Sister Diabetes Brother Social History Social History Tobacco Use Smoking status: Never Smokeless tobacco: Never Substance Use Topics Alcohol use: Never Review of Systems Constitutional: Negative for chills and fever. HENT: Negative for congestion, ear pain, hearing loss and sore throat. Eyes: Negative for pain and discharge. Respiratory: Negative for cough, shortness of breath and wheezing. Cardiovascular: Negative for chest pain, palpitations and leg swelling. Gastrointestinal: Negative for abdominal pain, blood in stool, constipation, diarrhea, nausea and vomiting. Genitourinary: Negative for dysuria, frequency, hematuria and urgency. Musculoskeletal: Negative for back pain, myalgias and neck pain. Skin: Negative for rash. Neurological: Negative for dizziness, tremors and headaches. Endo/Heme/Allergies: Negative for polydipsia. Does not bruise/bleed easily. Medication List Current Outpatient Medications Medication Sig Dispense Refill insulin glargine (LANTUS) 100 UNIT/ML injection Inject 12 Units under the skin every night Iron Combinations (IRON COMPLEX PO) Take by mouth losartan (COZAAR) 50 MG tablet Take 50 mg by mouth 1 (one) time each day metFORMIN (GLUCOPHAGE) 1000 MG tablet Take 1,000 mg by mouth in the morning and 1,000 mg in the evening. Take with meals. Multiple Vitamin (multivitamin) capsule Take 1 capsule by mouth 1 (one) time each day No current facility-administered medications for this visit. Allergy List Allergies Allergen Reactions Alogliptin Sitagliptin Physical Exam BP 107/66 Pulse 86 Wt 136 lb (61.7 kg) Vitals reviewed. Constitutional: She does not appear ill. No distress. Eyes: Conjunctivae are normal. Right eye exhibits no discharge. Left eye exhibits no discharge. No scleral icterus. Neck: No thyroid mass and no thyromegaly present. Cardiovascular: Normal rate and regular rhythm. Exam reveals no friction rub. No murmur heard.She exhibits no edema. Pulmonary/Chest: Effort normal and breath sounds normal. No respiratory distress. She has no wheezes. She has no rales. Abdominal: Soft. There is no abdominal tenderness. No hernia. Musculoskeletal: Normal range of motion. She exhibits no deformity. Skin: Skin is warm and dry. No rash noted. She is not diaphoretic. No erythema. Psychiatric: She has a normal mood and affect. Her behavior is normal. Judgment normal. Labs Chemistry Lab Units 04/20/24 0000 12/16/23 0000 09/14/23 0000 11/30/22 0000 CREATININE mg/dL 0.95 1.00 1.03 1.10 BUN mg/dL 21 15 19 18 POTASSIUM mEq/L 4.5 4.4 4.4 5.0 SODIUM mEq/L 144 142 140 139 CO2 mmol/L 23 23 22 25 CHLORIDE 104 104 104 -- ALBUMIN g/dL 4.5 4.4 4.5 -- EGFRNAFR 66 63 61 56 Bone Mineral Lab Units 04/20/24 0000 12/16/23 0000 09/14/23 0000 11/30/22 0000 CALCIUM mg/dL 9.8 9.9 10.2 10.8* ALK PHOS U/L 70 59 72 -- No lab exists for component: IRON SATURATION Reason For Exam CKD RESULT: US Retroperitoneum Comp US Retroperitoneum Comp Reason: CKD; Clinical Question(s): Other: COMPARISON: None. FINDINGS: Right kidney: 9.7 cm in length. No hydronephrosis. Normal parenchymal thickness and echotexture. Nostones. No suspicious mass. Left kidney: 10.0 cm in length. No hydronephrosis. Normal parenchymal thickness and echotexture. Nostones. No suspicious mass. Urinary bladder: Normal morphology. No stone, mass, wall thickening or debris. IMPRESSION: Unremarkable kidneys and urinary bladder. Assessment & Plan 1. Type 2 diabetes mellitus with diabetic nephropathy (HCC) 2. Essential (primary) hypertension 3. Chronic kidney disease, stage 2 (mild) Ms. Ana Avila is a 63-year-old female with past medical history of T2DM (follows [facility] Endocrine), HTN, chronic ibuprofen use, varicose veins, and HLD who presents to establish care with Nephrology. CKD stage II Renal U/S unremarkable (04/09/2022) Likely diabetic nephropathy. Patients father was on dialysis due to diabetic nephropathy. She has history of ibuprofen use, she takes Meloxicam 7.5mg daily. The bland urinalysis without proteinuria does tend to represent CKD 2/2 ibuprofen use rather than diabetes, but diabetic nephropathy can sometimes be non-proteinuric (historically it's proteinuric though). Plan: - management of CKD will depend on management of her risk factors - avoidance of NSAIDs discussed with patient. She has been advised again to stop her daily Meloxicam. - SGTL2i can be discussed with Channel Marketing Specialist. - c/w insulin and f/u with Endocrine 2. IDDM2 Better controlled now that she follows Endocrine. A1c is high . Suggest < 7.0 She is now on insulin QHS, and Metformin. Would likely benefit from SGLT2i, she sees Endocrinology. 3. HTN Well controlled on llosartan Had cough with LEIF Orders Placed This Encounter Comprehensive Metabolic Panel (CMP) Comprehensive Metabolic Panel (CMP) Comprehensive Metabolic Panel (CMP) Urine Protein / creatinine ratio Renal function panel Return in about 1 year (around 05/10/2025). Dmitry Najera MD [facility] documented in this encounter Plan of Treatment Upcoming Encounters Date Type Department Care Team (Late st Contact Info) Description 05/09/2025 2:00 PM EST Office Visit [facility] [address] [place] [phone] Dmitry Najera MD [address] [phone] Scheduled Orders Name Type Priority Associated Diagnoses Orde r Schedule Urine Protein / creatinine ratio Lab Routine Type 2 diabetes mellitus with diabetic nephropathy (HCC) Essential (primary) hypertension Chronic kidney disease, stage 2 (mild) Expected: 03/11/2025, Expires: 05/24/2025 Renal function panel Lab Routine Type 2 diabetes mellitus with diabetic nephropathy (HCC) Essential (primary) hypertension Chronic kidney disease, stage 2 (mild) Expected: 03/11/2025, Expires: 05/24/2025 documented as of this encounter Procedures Procedure Name Priority Date/Time Associated Diagnosis Comments COMPREHENSIVE METABOLIC PANEL (CMP) (EXTERNAL LAB ENTRY) Routine 04/20/2024 COMPREHENSIVE METABOLIC PANEL (CMP) (EXTERNAL LAB ENTRY) Routine 12/16/2023 COMPREHENSIVE METABOLIC PANEL (CMP) (EXTERNAL LAB ENTRY) Routine 09/14/2023 documented in this encounter Results * Comprehensive Metabolic Panel (CMP) (04/20/2024) Glucose 142 mg/dL BUN 21 mg/dL Creatinine 0.95 mg/dL Sodium 144 mEq/L Potassium 4.5 mEq/L Chloride 104 Carbon Dioxide 23 mmol/L Calcium 9.8 mg/dL Albumin (Blood) 4.5 g/dL AST (SGOT) 19 U/L ALT (SGPT) 11 U/L Alkaline Phosphatase 70 U/L Total Bilirubin 0.30 MG/DL eGFR Non-Afr Montenegrin 66 Total Protein, Serum 6.9 Globulin, Total 2.4 g/dL Blood 04/20/2024 Historical Provider LAB BLOOD ORDERABLES Tracy l Result * Comprehensive Metabolic Panel (CMP) (12/16/2023) Glucose 122 mg/dL BUN 15 mg/dL Creatinine 1.00 mg/dL Sodium 142 mEq/L Potassium 4.4 mEq/L Chloride 104 Carbon Dioxide 23 mmol/L Calcium 9.9 mg/dL Albumin (Blood) 4.4 g/dL AST (SGOT) 18 U/L ALT (SGPT) 15 U/L Alkaline Phosphatase 59 U/L Total Bilirubin 0.30 MG/DL eGFR Non-Afr Montenegrin 63 Total Protein, Serum 6.9 Globulin, Total 2.5 g/dL Blood 12/16/2023 Historical Provider LAB BLOOD ORDERABLES Tracy l Result * Comprehensive Metabolic Panel (CMP) (09/14/2023) Glucose 158 mg/dL BUN 19 mg/dL Creatinine 1.03 mg/dL Sodium 140 mEq/L Potassium 4.4 mEq/L Chloride 104 Carbon Dioxide 22 mmol/L Calcium 10.2 mg/dL Albumin (Blood) 4.5 g/dL AST (SGOT) 15 U/L ALT (SGPT) 9 U/L Alkaline Phosphatase 72 U/L Total Bilirubin 0.20 MG/DL eGFR Non-Afr Montenegrin 61 Total Protein, Serum 7.2 Globulin, Total 2.7 g/dL Blood 09/14/2023 Historical Provider LAB BLOOD ORDERABLES Tracy l Result documented in this encounter Visit Diagnoses Diagnosis Type 2 diabetes mellitus with diabetic nephropathy (HCC)- Primary Essential (primary) hypertension Chronic kidney disease, stage 2 (mild) documented in this encounter Care Teams Card Reader Relationship Specialty Start Date End Date Marleen Spain MD [address] [place] [address] [place] [phone] PCP - General Internal Medicine 05/10/24 documented as of this encounter
--- OUTSIDE RECORDS SUMMARY | 2024-05-23 15:15 | XMS_ITS | Encounter Summary ---
Author Organization [employer] Address [address] [facility] 7t [place] [address] Care Team Providers Care Product Technician Name Role Phone Unavailable Primary Care Provider [...] Care Team (Late st Contact Info) Description 11/29/2024 11:00 AM EDT Office Visit [facility] DENTAL [address] [place] [address] April Ziegler documented as of this encounter Visit Diagnoses Not on filedocumented in this encounter
--- OUTSIDE RECORDS SUMMARY | 2024-05-23 15:15 | XMS_ITS | Clinical Summary ---
Author Organization [facility] Address [address] [place] [address] Care Team Providers Care Customer Sales Specialist Name Role Phone Marleen Spain MD Primary Care Provider Unav ailable Allergies Active Allergy Reactions Criticality Noted Date Comments Alogliptin 03/16/2022 Sitagliptin 03/16/2022 Medications metFORMIN (GLUCOPHAGE) 1000 MG tablet Take 1,000 mg by mouth in the morning and 1,000 mg in the evening. Take with meals. Active insulin glargine (LANTUS) 100 UNIT/ML injection Inject 12 Units under the skin every night Active losartan (COZAAR) 50 MG tablet Take 50 mg by mouth 1 (one) time each day Active Multiple Vitamin (multivitamin) capsule Take 1 capsule by mouth 1 (one) time each day Active Iron Combinations (IRON COMPLEX PO) Take by mouth Active lisinopril 10 MG tablet Take 10 mg by mouth 1 (one) time each day 02/27/20 025 Discontinued Active Problems Problem Noted Date Diagnosed Date Chronic kidney disease, stage 2 (mild) 5 Type 2 diabetes mellitus with diabetic nephropat hy 03/16/2022 Essential (primary) hypertension 03/16/2022 Type 2 diabetes mellitus wit h diabetic autonomic (poly)neuropathy 03/16/2022 Encounters Date Type Department Care Team Description 05/10/2024 2:30 PM EST Office Visit [facility] [address] [place] [phone] Dmitry Najera MD Type 2 diabetes mellitus with diabetic nephropathy (HCC) (Primary Dx); Essential (primary) hypertension; Chronic kidney disease, stage 2 (mild) from Last 3 Months Family History Medical History Relation Comments Diabetes [...] Office Visit [facility] [address] [place] [address] Dmitry Najera MD [address] [phone] Health Maintenance Due Date Last Done Comments [...] PANEL (CMP) (EXTERNAL LAB ENTRY) Routine 04/20/2024 from Last 3 Months Results * Comprehensive Metabolic Panel (CMP) (04/20/2024) Glucose 142 mg/dL BUN 21 mg/dL Creatinine 0.95 mg/dL Sodium 144 mEq/L Potassium 4.5 mEq/L Chloride 104 Carbon Dioxide 23 mmol/L Calcium 9.8 mg/dL Albumin (Blood) 4.5 g/dL AST (SGOT) 19 U/L ALT (SGPT) 11 U/L Alkaline Phosphatase 70 U/L Total Bilirubin 0.30 MG/DL eGFR Non-Afr Estonian 66 Total Protein, Serum 6.9 Globulin, Total 2.4 g/dL Blood 04/20/2024 [facility] Provider LAB BLOOD ORDERABLES Tracy l Result from Last 3 Months Insurance [place] Care Teams Customer Sales Specialist Relationship Specialty Start Date End Date Marleen Spain MD [address] [place] [address] [place] [phone] PCP - General Internal Medicine 05/10/24
--- OUTSIDE RECORDS SUMMARY | 2024-05-23 15:15 | XMS_ITS | Clinical Summary ---
Author Organization [employer] Address [address] [facility] 7t [place] [address] Care Team Providers Care Compensation Intern Name Role Phone Unavailable Primary Care Provider [...] Encounters Date Type Department Care Team Description 05/08/2024 9:40 AM EST Office Visit [facility] D[facility] [address] [place] [address] Christine Singer Encounter for dental examination (Primary Dx); Stage 2 grade B generalized periodontitis per AAP/EFP 2017 classification from Last 3 Months Social History Tobacco [...] Description 11/29/2024 11:00 AM EDT Office Visit [facility] DENTAL [address] [place] [address] April Ziegler Health Maintenance Due Date Last [...] Risk 60-74 years 1-dose series) 2018 Dental X-Ray: Full Mouth 06/06/2023 021, 04/22/2016, 10/24/2007 COVID-19 Vaccine ( season) 2023 07/30/2021, 07/28/2021, 08/13/2020, Additional history exists Influenza Vaccine (#1) 2023 02/12/2021 Dental X-Ray: Bitewings 02/25/2024 02/24/20 23, 06/19/2021, 06/04/2020, Additional history exists Dental Oral Exam 11/06/2024 05/08/2024, 07/2022, 06/19/2021, Additional history exists Dental Prophylaxis 11/06/2024 05/08/2024, 0 09/13/2023, 02/23/2023, Additional history exists Tobacco Screening 05/08/2025 05/08/2024 DTaP/Tdap/Td Vaccines (2 - Td or Tdap) [...] Procedure Name Priority Date/Time Associated Diagnosis Comments ORAL HYGIENE INSTRUCTIONS Routine 2024 9:40 AM EST Full PROPHYLAXIS - ADULT Routine 025 9:40 AM EST CASE PRESENTATION, DETAILED AND EXTENSIVE TREATMENT PLANNING Routine 05/08/2024 9:40 AM EST PERIODIC ORAL EVALUATION - ESTABLISHED PATIENT Routine 05/08/2024 9:40 AM EST BITEWINGS - 4 RADIOGRAPHIC IMAGES Routine 02/23/2023 9:40 AM EST INTRAORAL - COMPLETE SERIES OF RADIOGRAPHIC IMAGES Routine 06/04/2020 12:00 AM EST from Last 3 Months or Most Recently Relevant to Health Maintenance Insurance [facility] MEDICAID STAND ADULT
--- OUTSIDE RECORDS SUMMARY | 2024-05-23 15:15 | XMS_ITS | Encounter Summary ---
Author Organization [employer] Address [address] [facility] [address] [place] [address] Care Team Providers Care Package Reinspector Name Role Phone Unavailable Primary Care Provider [...] Description 11/29/2024 11:00 AM EDT Office Visit [facility] DENTAL [address] [place] [address] April Ziegler documented as of this encounter Visit Diagnoses Not on filedocumented in this encounter
--- OUTSIDE RECORDS SUMMARY | 2024-05-23 15:15 | XMS_ITS ---
Author Organization [facility] Address [address] [place] [phone] Support Name Relationship Address Phone DALILA KIERRA Emergency Contact 42 03/29 [place], [place] [phone] OVIDIO MARSHALL Guarantor Unknown Care Team Providers Care Lacing Operator Name Role Phone Marleen Spain Primary Care Provider Aravind Luke Unavailable [phone] ALLERGIES No Known Allergies REASON FOR VISIT Patient presents today for a recall colonoscopy MEDICATIONS Medication SIG (Take, Route, Frequency, Duration) Notes Start Date End Date Status Lantus SoloStar 100 UNIT/ML Subcutaneous for 90 Active HumaLOG KwikPen 100 UNIT/ML Subcutaneous for 27 Active BD Pen Needle Chanell 2nd Gen 32G X 4 MM for 90 Active Latanoprost 0.005 % Ophthalmic for 90 Active Losartan Potassium 50 MG Oral for 90 Active Multi Vitamin/Minerals Active Meloxicam 7.5 MG Oral for 90 N ot-Taking Senokot S 8.6-50 MG 1 tablet in the even ing as needed Orally Once a day Active Insulin Glargine-yfgn 100 UNIT/ML Subcutaneous for 107 Active Rosuvastatin Calcium 40 MG Oral for 90 Active Simvastatin 20 MG 1 tablet in the even ing Orally Once a day Active Vitamin B12 100 MCG 1 tablet Orally Once a day Active metFORMIN HCl 1000 MG 1 tablet with meal s Orally Twice a day Active Motrin IB 200 MG 1 tablet as needed Orally every 6 hrs Not-Taking Glimepiride 4 MG 1 tablet with breakf ast or the first main meal of the day Orally Once a day Not-Taking PROBLEMS Problem Type ICD Code Onset Dates Problem Status W/U Status Risk SNOMED Code Notes Problem Colon cancer screening (Z12.11) Active confirmed Colon cancer screening (143593930) Problem Encounter for other preprocedural examination (Z01.818) Active confirmed Pre-procedure evaluation check (416390557) Problem Anemia (D64.9) Active confirmed Anemia (827252917) VITAL SIGNS Temperature 98.0 degrees Fahrenheit 04/25/19 25 Blood pressure systolic 000 mm Hg 04/25/19 25 Blood pressure diastolic 00 mm Hg 025 Height 60.5 in 04/25/2024 Weight 127 lbs 04/25/2024 BMI 24.39 kg/m2 04/25/2024 Encounters Encounter Location Date Provider Diagnosis [facility] [address] [place] [address] 04/25/2024 Aravind Prince Colon cancer screeni ng Z12.11 ; Anemia D64.9 and Encounter for other preprocedural examination Z01.818 ASSESSMENTS Encounter Date Diagnosis Assessment Notes Treatment Notes Treatment Clinical Notes 04/25/2024 Colon cancer screening (ICD-10 - Z12.11) Do not take the Metformin the night before nor on the day of the colonoscopy Take only 1/2 the usual Insulin the night before and on the morning of the colonoscopy 04/25/2024 Anemia (ICD-10 - D64.9) 04/25/2024 Encounter for other preprocedural examination (ICD-10 - Z01.818) PLAN OF TREATMENT Treatment Notes Assessment Notes Colon cancer screening Do not take the Metformin the night before nor on the day of the colonoscopy Take only 1/2 the usual Insulin the night before and on the morning of the colonoscopy Future Test Test Name Order Date COLONOSCOPY 04/25/2024 Next Appt Details Follow Up: prn, Reason: Provider Name:Aravind Prince , 08/27/2024 07:30:00 AM, [address] [place] [address] , [place], [place], [phone], Progress Notes * Examination Category Sub-Category Detail Notes General Examination GENERAL APPEARANCE: pleasant , well nourished, well developed, in no acute distress HEAD: EYES: sclera non-icteric EARS: NOSE: THROAT: NECK/THYROID: no cervical lymphade nopathy, neck supple HEART: S1, S2 normal CHEST: LUNGS: clear to auscultatio n bilaterally ABDOMEN: normal bowel sounds, no guarding or rigidity, no guarding or rigidity, no masses palpable, soft, nontender, nondistended NEUROLOGIC: alert and oriented SKIN: nonjaundiced, no spi romaine angiomata EXTREMITIES: no edema PERIPHERAL PULSES: BACK: BREASTS: MUSCULOSKELETAL: MALE GENITOURINARY: LYMPH NODES: RECTAL EXAM: FEMALE GENITOURINARY: ORAL CAVITY: mucosa moist
--- OUTSIDE RECORDS SUMMARY | 2024-05-23 15:15 | XMS_ITS | Encounter Summary ---
Author Organization [employer] [facility] Address [address] [facility] 7t [place] [address] Care Team Providers Care Umbrella Tipper Hand Name Role Phone Unavailable Primary Care Provider [...] Description 11/29/2024 11:00 AM EDT Office Visit [facility] [address] [place] [phone] April Ziegler documented as of this encounter Visit Diagnoses Not on filedocumented in this encounter
--- OUTSIDE RECORDS SUMMARY | 2024-05-23 15:15 | XMS_ITS | Patient Health Record ---
Author Organization [facility] Address [address] [place] [phone] Support Name Relationship Address Phone DALILA KIERRA Emergency Contact 42 03/29 [place], [place] [phone] OVIDIO MARSHALL Guarantor Unknown Care Team Providers Care Executive Director Of Marketing Name Role Phone Brittonyasmine Marleen Primary Care Provider UnavailAravind Wells Unavailable [phone] ALLERGIES No Known Allergies REASON FOR REFERRAL No Information MEDICATIONS Medication SIG (Take, Route, Frequency, Duration) Notes Start Date End Date Status Simvastatin 20 MG 1 tablet in the even ing Orally Once a day Active Lantus SoloStar 100 UNIT/ML Subcutaneous for 90 Active Vitamin B12 100 MCG 1 tablet Orally Once a day Active HumaLOG KwikPen 100 UNIT/ML Subcutaneous for 27 Active Dulcolax (colon prep) 5 MG take at 3:00 p.m and 7:00p.m. Orally two tablets twice a day for one day for 1 day 04/26/2024 Active BD Pen Needle Chanell 2nd Gen 32G X 4 MM for 90 Active metFORMIN HCl 1000 MG 1 tablet with meal s Orally Twice a day Active Latanoprost 0.005 % Ophthalmic for 90 Active Multi Vitamin/Minerals Active Meloxicam 7.5 MG Oral for 90 N ot-Taking Motrin IB 200 MG 1 tablet as needed Orally every 6 hrs Not-Taking Senokot S 8.6-50 MG 1 tablet in the even ing as needed Orally Once a day Active MiraLax (colon prep) 17 GM/SCOOP 1 238Gm bottle mixed with Gatorade or Crystal Light Orally begin at 5:00 p.m. the day before the procedure for 1 day 04/26/2024 Active Losartan Potassium 50 MG Oral for 90 Active Glimepiride 4 MG 1 tablet with breakf ast or the first main meal of the day Orally Once a day Not-Taking Insulin Glargine-yfgn 100 UNIT/ML Subcutaneous for 107 Active Rosuvastatin Calcium 40 MG Oral for 90 Active IMMUNIZATIONS Vaccine Route Administration Date Status Comme nts Influenza Unknown 11/15/2023 Administered SOCIAL HISTORY Sex Assigned At : Social History Observation Description Sex Assigned At Unknown PROBLEMS Problem Type ICD Code Onset Dates Problem Status W/U Status Risk SNOMED Code Notes Problem Colon cancer screening (Z12.11) Active confirmed Colon cancer screening (304151123) Problem Encounter for other preprocedural examination (Z01.818) Active confirmed Pre-procedure evaluation check (272751128) Problem Anemia (D64.9) Active confirmed Anemia (670127579) VITAL SIGNS Temperature 98.0 degrees Fahrenheit 04/25/2024 Blood pressure diastolic 00 mm Hg 04/25/2024 Height 60.5 in 04/25/2024 Blood pressure systolic 000 mm Hg 04/25/2024 Weight 127 lbs 04/25/2024 BMI 24.39 kg/m2 04/25/2024 Encounters Encounter Location Date Provider Diagnosis [facility] [address] [place] [phone] 04/25/2024 Aravind Prince Colon cancer screeni ng Z12.11 ; Anemia D64.9 and Encounter for other preprocedural examination Z01.818 [facility] [address] [place] [phone] 04/25/2024 Aravind Prince ASSESSMENTS Encounter Date Diagnosis Assessment Notes Treatment [...] examination (ICD-10 - Z01.818) PLAN OF TREATMENT Pending Test Test Name Order Date IRON + IBC (FE) 02/07/2014 IRON + IBC (FE) 09/18/2013 IRON + IBC (FE) 11/06/2013 FERRITIN 02/07/2014 FERRITIN 09/18/2013 FERRITIN 11/06/2013 CBC w DIFF 11/06/2013 CBC w DIFF 02/07/2014 CBC w DIFF 09/18/2013 CELIAC PANEL #10 09/18/2013 Future Test Test Name Order Date COLONOSCOPY 09/18/2013 COLONOSCOPY 04/25/2024 Next Appt Details Provider Name:Aravind Prince , 08/27/2024 07:30:00 AM, [address] [place] [address] , [place], [place], [phone], Insurance Providers Payer Name Payer Address Payer Phone Subscriber Number Group Number Insured Name Patient Relationship to Insured Coverage Start Date Coverage End Date MED[place]ARE OF [place] [address] [place] [address] [phone] [id number] OVIDIO MARSHALL Self - patient is the insured MEDICAID OF [facility] [address] [place] [address] [id number] OVIDIO MARSHALL Self - patient is the insured MEDICAL (GENERAL) HISTORY Medical History History ICD Code IDDM Denies HI,CVA,Lung disease,renal disease Hyperlipidemia Anemia--Hgb 11.6 and Ferriti n of 6 in 11/2012, and 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
--- OUTSIDE RECORDS SUMMARY | 2024-05-23 15:15 | XMS_ITS ---
Author Organization [facility] Address [address] [facility] [address] [place] [phone] Support Name Relationship Address Phone KIERRA CONNER Emergency Contact 42 03/29 [place], [place] [phone] OVIDIO MARSHALL Guarantor Unknown Care Team Providers Care Business Solutions Consultant Name Role Phone Marleen Spain Primary Care Provider Unavailab Aravind [facility] [phone] REASON FOR VISIT bowel prep MEDICATIONS Medication SIG (Take, Route, Frequency, Duration) Notes Start Date End Date Status Dulcolax (colon prep) 5 MG take at 3:00 p.m and 7:00p.m. Orally two tablets twice a day for one day for 1 day 04/26/2024 Active MiraLax (colon prep) 17 GM/SCOOP 1 238Gm bottle mixed with Gatorade or Crystal Light Orally begin at 5:00 p.m. the day before the procedure for 1 day 04/26/2024 Active Encounters Encounter Location Date Provider Diagnosis [facility] [address] [phone] 04/25/2024 Aravind Prince PLAN OF TREATMENT Medication Medication Name Sig Start Date Stop Date Notes Dulcolax (colon prep) 5 MG take at 3:00 p.m and 7:00p.m. Orally two tablets twice a day for one day for 1 day 04/26/2024 MiraLax (colon prep) 17 GM/SCOOP 1 238Gm bottle mixed with Gatorade or Crystal Light Orally begin at 5:00 p.m. the day before the procedure for 1 day 04/26/2024 Next Appt Details Provider Name:Aravind Prince , 08/27/2024 07:30:00 AM, [address] [place] [address] , [place], [place], [phone],
--- OUTSIDE RECORDS SUMMARY | 2024-05-23 15:16 | XMS_ITS | Encounter Summary ---
Author Organization [employer] Address [address] [facility] 7 [place] [address] Care Team Providers Care Preparation Plant Supervisor Name Role Phone Unavailable Primary Care Provider Unavailabl e Reason for Visit * Reason Comments Routine Cleaning Dental Exam Encounter Details Date Type Department Care Team (Latest Contact Info) Description 05/08/2024 9:40 AM EST Office Visit [facility] [address] [place] [phone] Christine Singer Encounter for dental examination (Primary Dx); Stage 2 grade B generalized periodontitis per AAP/EFP 2017 classification Social History Tobacco Use Types Packs/Day Years [...] AM EDT documented as of this encounter Progress Notes * Christine Singer - 05/08/2024 9:40 AM EST Subjective: CC: Pt. Presents to the clinic for routine cleaning. MH: no changes since last visit Objective: Extra oral exam: WNL Intra oral exam: Adult OCS: WNL. Progression of periodontal problems. Perio Case Type: Type II Generalized. Grade B Oral Hygiene: Fair. Generalized moderate plaque and calculus. DEXIS was not loading for Xrays. Patient explained that radiographs will be taken next visit. Assessment and plan: Light scaling with hand instruments and Cavitron. ultrasonic with Releaf high speed suction Polishing done with handpiece and prophy angle with paste. OHI:tooth brushing with Ricci technique and flossing instruction. Exam done by Dr. Godinez. Advised pt. On brushing habits, use of waterpik and flossing NV: Hygiene recall NOTES: Patient did great!! Christine Singer documented in this encounter Plan of Treatment Upcoming Encounters Date Type Department Care Team (Late st Contact Info) Description 11/29/2024 11:00 AM EDT Office Visit [facility] [address] [place] [id number] April Ziegler documented as of this encounter Procedures Procedure Name Priority Date/Time Associated Diagnosis Comments Full PROPHYLAXIS - ADULT Routine 025 9:40 AM EST PERIODIC ORAL EVALUATION - ESTABLISHED PATIENT Routine 05/08/2024 9:40 AM EST ORAL HYGIENE INSTRUCTIONS Routine 2024 9:40 AM EST CASE PRESENTATION, DETAILED AND EXTENSIVE TREATMENT PLANNING Routine 05/08/2024 9:40 AM EST documented in this encounter Visit Diagnoses Diagnosis Encounter for dental examination- Primary Stage 2 grade B generalized periodontitis per AAP/EFP 2017 classification documented in this encounter
== END 2024-05-23 13:22 | disposition home or self-care (01) ==
PROVIDERS: PCP Internal Medicine; Visit Provider Registered Nurse Diabetes Educator
DX: E11.8 Type 2 diabetes mellitus with unspecified complications (principal)

== ENCOUNTER → 2024-05-23 12:26 | Outpatient (BNVA) | payer MEDICARE, MEDICAID, SELFPAY | PROVIDERS: PCP Internal Medicine; Visit Provider Registered Nurse Diabetes Educator | DX: E11.8 Type 2 diabetes mellitus with unspecified complications (principal) | CPT/HCPCS: 99211 ==

== ENCOUNTER 2024-05-29 12:09 | Outpatient (AMB) | payer MEDICARE, MEDICAID, SELFPAY ==
--- NOTE | 2024-05-29 09:00 | A.OFFVIS_ITS ---
Vital Signs 05/29/24 12:33 Height 5 ft 1 in Weight 123 lb 7.342 oz BMI 23.3 BP 127/73 Blood Pressure Location Rt brachial Position Sitting Pulse 69 Pulse Source Pulse Oximeter Pulse Oximetry (%) 98 Oxygen Delivery Method Room Air Intake Visit Reasons: T2DM Intake Note: reimbursement spec #[id number] utilized for visit Patient presents today for a follow up on Type 2 Diabetes Mellitus: Travel Clerk Language Tamil Last Diabetic eye exam was on: DUE Last Podiatry exam was on: Does not see a Convex Grinder Most recent HbA1c: 8.6%, 04/17/2024 Random Glucose- 98 mg/dL, Today Travel Clerk Required: Yes Travel Clerk Language: Delroyri Travel Clerk Services: Travel Clerk Present (voice only via [employer] reimbursement spec nazia) Travel Clerk Name: Soraya #[id number] Information Interpreted: non-clinical & clinical Accompanied by: Self / Same As Patient Allergies alogliptin Allergy (Unknown, Verified 05/02/24 10:20) contipation sitagliptin [Januvia] Allergy (Unknown, Verified 05/02/24 10:20) vomiting HPI Comments Details: 63 YO F who is seen in f/u for T2DM. She was last seen by myself 11/30/23. Hgb A1C 04/17/24:8.6% Hgb A1C 04/17/23 8%, previous 7.1% Initially diagnosed with T2DM in 20 yrs . Was initially started on treatment with metformin. Was on Trulicity 0.75 mg weekly but she was losing too much weight due to poor appetite. Her weight has stabilized Current regime: Metformin 1000 mg BID Lantus 14-16 units Humalog breakfast 6 units lunch 13 units supper 6 units no recent lows Treats low with sugar Freestyle pallavi sensor 3 average glucose: 163 14 day continuous glucose sensor report reviewed TIme in ranges: 7% very high (above 250) 23 % high (181-250) 70 % in range (70-180] 0 % low (69-55) 0 % very low (below 54) 28.4 Glucose variability (target <36%) Interpretation of CGMS [no lows with numbers in good range by morning slight increase in numbers later in the day and overnight ] Family history of T2DM in father and siblings . Has eyes checked yearly, last eye exam 03/2024 denies retinopathy goes every 4 months for glaucoma Denies neuropathy, ,does not see podiatry. + nephropathy, on LEIF. 05/2023 urine microalbumin: 5.0 eGFR 56 Has HLD, on statin. 05/2023: LDL 59 Denies CAD. Had ekg through pcp Saw CDE for sensor Has been seen by nutrition in the past and follows a balanced diet. She was seen by [facility] endocrinology as she was not able to get an appointment here for slightly elevated calcium and PTH. She reports she had a bone density test done and she was advised her vitamin-D was low and she has been started on 2000 IU use daily. This was refilled today and another request was sent to [facility] for labs 09/14/23 calcium 9.8 albumin 4.5 ionzed calcium 5.2 pth 45 vit d 55.1 up from 24.2 08/17/23 [facility] Medical History (Updated 05/02/24 @ 12:04 by URSULA Dia) Atypical chest pain Low vitamin D level Hypercalcemia Hyperlipidemia, unspecified Essential hypertension Type 2 diabetes mellitus with unspecified complications Surgical History No pertinent past surgical history Family History Mother No problems noted. Father Diabetes Brother Diabetes Sister Diabetes Social History Household Members: Family Household Members Other:: daughter Alcohol intake: current Alcohol intake frequency: does not drink Patient Tobacco Use Status: Never used Tobacco Physical Exam Vital Signs: Last Vital Signs Pulse 69 05/29/24 12:33 BP 127/73 05/29/24 12:33 Pulse Ox 98 05/29/24 12:33 Oxygen Delivery Method Room Air 05/29/24 12:33 BMI result Body Mass Index 23.3 Const Other: Absence of Cushingoid features. Absence of acromegalic features. Neck exam reveals nl size thyroid about 15 gms. No thyroid nodules palpable. Heart S1 S2, Reg R/R. No M/R G. Skin exam reveals absence of vitiligo or acanthosis nigrica ns. Visual exam of foot performed. No ulcerations or open lesions. No inter digit maceration or fissuring. No onychomycosis, no callouses. Sensation intact to monofilament exam. Vibratory sensation is normal with 128 Hz tuning fork. Results Reviewed Results Reviewed: Laboratory Last Values Glucose (Clinic) 98 mg/dL (60-115) 05/29/24 12:43 Assessment & Plan Assessment & Plan (1) Type 2 diabetes mellitus with unspecified complications: Code(s): E11.8 - Type 2 diabetes mellitus with unspecified complications Category: Medical Plan: 63-year-old nephrology with improving glucose numbers. Insulin titrated upward. Refill your review that Ozempic did get the clinical indication for prevention of progression of kidney disease. She was concerned on weight loss with Trulicity but could trial low-dose Ozempic. We will discuss at her next visit The patient had an opportunity to ask questions regarding treatment plan. The patient expressed understanding and agreement with the above treatment plan. The patient is aware they should contact our office by phone for worsening gluc ose readings or for any low blood sugars which may warrant a change in diabetes medication. Compliance is encouraged with medications and any followup testing/consults which may have been ordered. Patient Instructions: The patient was counseled to achieve a target A1C of 7% (154 avg). Fasting blood sugars should be 90-130 in the morning and less than 180 two hours after meals. Reviewed the relationship between poor diabetic control and the development of complications. Check your feet daily looking for any signs of infection, drainage, redness, ulceration and seek medical attention if this occurs. Break in shoes gradually and do not wear open-toed shoes or walk stocking footed or barefooted. Carry a sugar source Coding Level of Care Code Est Pt Level 4 (00410) Complex EM visit Add On G2211 Diagnoses Type 2 diabetes mellitus with unspecified complications E11.8 Time Spent (min) 30 Comment Time spent reviewing labs/provider notes, face to face, chart doc
[2024-05-29 12:33] VITALS: BP 127/73; PULSE 69; O2SAT 98; BMI 23.3
[2024-05-29 12:47] LABS: Glucose, Whole Blood 98 mg/dL (60-115)
--- OUTSIDE RECORDS SUMMARY | 2024-05-29 15:17 | XMS_ITS ---
Author Organization [facility] Address [address] [facility] [address] [place] [phone] Support Name Relationship Address Phone KIERRA CONNER Emergency Contact 42 03/29 [place], [place] [phone] OVIDIO MASRHALL Guarantor Unknown Care Team Providers Care Clothing Trades Workers Name Role Phone Marleen Spain Primary Care Provider Unavailab Aravind [facility] [phone] REASON FOR VISIT bowel prep MEDICATIONS Medication [...] Active Encounters Encounter Location Date Provider Diagnosis [facility] [address] [address] 04/25/2024 Aravind Prince PLAN OF TREATMENT Medication [...] Provider Name:Aravind Prince , 08/27/2024 07:30:00 AM, [address] [place] [address] , [place], [place], [phone],
--- OUTSIDE RECORDS SUMMARY | 2024-05-29 15:17 | XMS_ITS | Encounter Summary ---
Author Organization [employer] Address [address] [facility] 7t [place] [address] Care Team Providers Care Fire Safety Director Name Role Phone Unavailable Primary Care Provider [...] Description 11/29/2024 11:00 AM EDT Office Visit [facility] D[facility] [address] [place] [id number] April Ziegler documented as of this encounter Visit Diagnoses Not on filedocumented in this encounter
--- OUTSIDE RECORDS SUMMARY | 2024-05-29 15:17 | XMS_ITS | Clinical Summary ---
Author Organization [facility] Address [address] [place] [address] Care Team Providers Care Hiv Cts Specialist Name Role Phone Marleen Spain MD [...] Visit [facility] [address] [place] [address] Dmitry Najera MD Type 2 [...] Office Visit [facility] [address] [place] [address] Dmitry Najera MD [address] [phone] Health Maintenance Due Date Last Done Comments [...] U/L Total Bilirubin 0.30 MG/DL eGFR Non-Afr Stateless 66 Total Protein, Serum 6.9 Globulin, Total 2.4 g/dL Blood 04/20/2024 [facility] Provider LAB BLOOD ORDERABLES Tracy l Result from Last 3 Months Insurance [place] Care Teams Hiv Cts Specialist Relationship Specialty Start Date End Date Marleen Spain MD [address] [place] [address] [place] [address] PCP - General Internal Medicine 05/10/24
--- OUTSIDE RECORDS SUMMARY | 2024-05-29 15:17 | XMS_ITS | Clinical Summary ---
Author Organization [employer] Address [address] [facility] 7t [place] [address] Care Team Providers Care Mortgage Loan Originator Name Role Phone Unavailable Primary Care Provider [...] 05/08/2024 9:40 AM EST Office Visit [facility] [address] [place] [address] Christine Singer Encounter for dental examination (Primary [...] Description 11/29/2024 11:00 AM EDT Office Visit [facility] [address] [place] [address] April Ziegler Health Maintenance Due Date Last [...] Most Recently Relevant to Health Maintenance Insurance D[facility] MEDICAID STAND ADULT
--- OUTSIDE RECORDS SUMMARY | 2024-05-29 15:17 | XMS_ITS ---
Author Organization [facility] Address [address] [place] [phone] Support Name Relationship Address Phone DALILA KIERRA Emergency Contact 42 03/29 [place], [place] [phone] OVIDIO MARSHALL Guarantor Unknown Care Team Providers Care Tobacco Acreage Measurer Name Role Phone Marleen Spain Primary Care Provider Aravind Luke Unavailable [phone] ALLERGIES No Known Allergies REASON FOR VISIT [...] screening (Z12.11) Active confirmed Colon cancer screening (220235083) Problem Encounter for other preprocedural examination (Z01.818) Active confirmed Pre-procedure evaluation check (802976618) Problem Anemia (D64.9) Active confirmed Anemia (311800846) VITAL SIGNS Temperature 98.0 degrees Fahrenheit 04/25/19 25 Blood pressure systolic 000 mm Hg 04/25/19 25 Blood pressure diastolic 00 mm Hg 025 Height 60.5 in 04/25/2024 Weight 127 lbs 04/25/2024 BMI 24.39 kg/m2 04/25/2024 Encounters Encounter Location Date Provider Diagnosis [facility] [address] [place] [address] 04/25/2024 Aravind Prince Colon cancer screeni ng [...] Provider Name:Aravind Prince , 08/27/2024 07:30:00 AM, [address] [place] [address] , [place], [place], [phone], Progress Notes * Examination Category Sub-Category Detail [...]
--- OUTSIDE RECORDS SUMMARY | 2024-05-29 15:17 | XMS_ITS | Encounter Summary ---
Author Organization [facility] Address [address] [place] [phone] Phone Care Team Providers Care Donkey Doctor Name Role Phone Marleen Spain MD Primary Care Provider Unav ailable Reason for Visit * Reason Comments type 2 diabetes with diabetic nephropath y Encounter Details Date Type Department Care Team ([facility] st Contact Info) Description 05/10/2024 2:30 PM EST Office Visit [facility] [address] [place] [address] Dmitry Najera MD [address] [phone] Type 2 diabetes mellitus with [...] with past medical history of T2DM (follows [facility]), HTN, chronic ibuprofen use, varicose veins, [...] Meloxicam. - SGTL2i can be discussed with Safety Relief Valve Technician. - c/w insulin and f/u with Endocrine [...] Najera MD [facility] documented in this encounter Plan of Treatment Upcoming Encounters Date Type Department Care Team (Late st Contact Info) Description 05/09/2025 2:00 PM EST Office Visit [facility] 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
--- OUTSIDE RECORDS SUMMARY | 2024-05-29 15:18 | XMS_ITS | Encounter Summary ---
Author Organization [facility] Address [address] [facility] 7t [place] [address] Care Team Providers Care Field Sales Manager Name Role Phone Unavailable Primary Care Provider [...] Description 11/29/2024 11:00 AM EDT Office Visit [facility] D[facility] [address] [place] [address] April Ziegler documented as of this encounter Visit Diagnoses Not on filedocumented in this encounter
--- OUTSIDE RECORDS SUMMARY | 2024-05-29 15:18 | XMS_ITS | Encounter Summary ---
Author Organization [facility] Address [address] [facility] 7t [place] [address] Care Team Providers Care Bpm Architect Name Role Phone Unavailable Primary Care Provider [...] Description 11/29/2024 11:00 AM EDT Office Visit [facility][1] DENTAL [address] [place] [address] April Ziegler documented as of this encounter Visit Diagnoses Not on filedocumented in this encounter
--- OUTSIDE RECORDS SUMMARY | 2024-05-29 15:18 | XMS_ITS | Encounter Summary ---
Author Organization [employer] Address [address] [facility] 7 [place] [address] Care Team Providers Care Inductor Tester Name Role Phone Unavailable Primary Care Provider Unavailabl e Reason for Visit * Reason Comments Routine Cleaning Dental Exam Encounter Details Date Type Department Care Team (Latest Contact Info) Description 05/08/2024 9:40 AM EST Office Visit [facility] D[facility] [address] [place] [phone] Christine Singer Encounter for dental examination (Primary [...] AM EDT Office Visit [facility] [address] [place] [address] April Ziegler documented as of this encounter [...]
--- OUTSIDE RECORDS SUMMARY | 2024-05-29 15:18 | XMS_ITS | Patient Health Record ---
Author Organization [facility] Address [address] [place] [phone] Support Name Relationship Address Phone DALILA KIERRA Emergency Contact [address] [place], [place] [phone] OVIDIO MARSHALL Guarantor Unknown [phone] Care Team Providers Care Summer Law Clerk Name Role Phone Brittonyasmine Marleen Primary Care Provider UnavailAravind Wells Unavailable [phone] ALLERGIES No Known Allergies REASON FOR REFERRAL [...] screening (Z12.11) Active confirmed Colon cancer screening (983681525) Problem Encounter for other preprocedural examination (Z01.818) Active confirmed Pre-procedure evaluation check (686492538) Problem Anemia (D64.9) Active confirmed Anemia (722396493) VITAL SIGNS Temperature 98.0 degrees Fahrenheit 04/25/2024 Blood pressure diastolic 00 mm Hg 04/25/2024 Height 60.5 in 04/25/2024 Blood pressure systolic 000 mm Hg 04/25/2024 Weight 127 lbs 04/25/2024 BMI 24.39 kg/m2 04/25/2024 Encounters Encounter Location Date Provider Diagnosis [facility] [address] [place] [phone] 04/25/2024 Aravind Prince Colon cancer screeni ng Z12.11 ; Anemia D64.9 and Encounter for other preprocedural examination Z01.818 [facility] [address] [place] [phone] 04/25/2024 Aravind Prince ASSESSMENTS Encounter Date Diagnosis [...] Name Order Date IRON + IBC (FE) 09/18/2013 IRON + IBC (FE) 11/06/2013 IRON + IBC (FE) 02/07/2014 FERRITIN 02/07/2014 FERRITIN 09/18/2013 FERRITIN 11/06/2013 CBC w DIFF 02/07/2014 CBC w DIFF 09/18/2013 CBC w DIFF 11/06/2013 CELIAC PANEL #10 09/18/2013 Future Test Test Name Order Date COLONOSCOPY 09/18/2013 COLONOSCOPY 04/25/2024 Next Appt Details Provider Name:Aravind Prince , 08/27/2024 07:30:00 AM, [address] [place] [address] , [place], [place], [phone], Insurance Providers Payer Name Payer Address Payer Phone Subscriber Number Group Number Insured Name Patient Relationship to Insured Coverage Start Date Coverage End Date MEDICARE OF [place] [address] [place] [address] [phone] [id number] OVIDIO MARSHALL Self - patient is the insured MEDICAID OF [facility] [address] [place] [address] [id number] OVIDIO MARSHALL Self - patient is the insured MEDICAL (GENERAL) HISTORY Medical History History ICD Code IDDM Denies AL,CVA,Lung disease,renal disease Hyperlipidemia Anemia--Hgb 11.6 and Ferriti n of 6 in 11/2012, and 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
--- OUTSIDE RECORDS SUMMARY | 2024-05-29 15:18 | XMS_ITS | Encounter Summary ---
Author Organization [facility] Address [address] [facility] 7t [place] [address] Care Team Providers Care Ecg Technician Name Role Phone Unavailable Primary Care [...] Description 11/29/2024 11:00 AM EDT Office Visit [facility] DENT[facility] [address] [place] [address] April Ziegler documented as of this encounter Visit Diagnoses Not on filedocumented in this encounter
== END 2024-05-29 13:09 | disposition home or self-care (01) ==
PROVIDERS: PCP Internal Medicine; Visit Provider Nurse Practitioner Adult Health
DX: E11.8 Type 2 diabetes mellitus with unspecified complications (principal)
CPT/HCPCS: 99214; G2211

== ENCOUNTER → 2024-05-29 12:09 | Outpatient (BNVA) | payer MEDICARE, MEDICAID, SELFPAY | PROVIDERS: PCP Internal Medicine; Visit Provider Nurse Practitioner Adult Health | DX: E11.8 Type 2 diabetes mellitus with unspecified complications (principal); Z79.4 Long term (current) use of insulin; Z79.84 Long term (current) use of oral hypoglycemic drugs | CPT/HCPCS: 82947; 99212 ==

== ENCOUNTER 2024-06-04 11:17 | Outpatient (AMB) | payer MEDICARE, MEDICAID, SELFPAY ==
--- NOTE | 2024-06-04 11:32 | A.OFFVIS_ITS ---
VS Expanded 06/04/24 11:55 Height 5 ft 1 in Weight 119 lb 7.849 oz BMI 22.6 Intake Visit Reasons: T2DM Allergies alogliptin Allergy (Unknown, Verified 05/02/24 10:20) contipation sitagliptin [Januvia] Allergy (Unknown, Verified 05/02/24 10:20) vomiting Nutrition Presentation Details: Pt presents for MNT f/u for T2DM Interpreting services :Tamil director speech language # [id number] Pt reports recent weight loss is related to participation in . Pt denies having had hypoglycemia BS Monitoring Most Recent Diabetes Results: Creatinine 0.96 mg/dL (0.5-1.4) 04/17/24 Blood Urea Nitrogen 20 mg/dL (9-16) H 04/17/24 Sodium 141 mmol/L (135-145) 04/17/24 Potassium 3.7 mmol/L (3.3-5.1) 04/17/24 Chloride 108 mmol/L (96-108) 04/17/24 Carbon Dioxide 23 mmol/L (22-29) 04/17/24 Calcium 9.9 mg/dL (8.4-10.2) 04/17/24 Albumin 4.3 g/dL (3.5-5.0) 04/17/24 [facility] Medical History (Updated 05/02/24 @ 12:04 by URSULA Dia) Atypical chest pain Low vitamin D level Hypercalcemia Hyperlipidemia, unspecified Essential hypertension Type 2 diabetes mellitus with unspecified complications Surgical History No pertinent past surgical history Family History Mother No problems noted. Father Diabetes Brother Diabetes Sister Diabetes Social History Household Members: Family Household Members Other:: daughter Alcohol intake: current Alcohol intake frequency: does not drink Patient Tobacco Use Status: Never used Tobacco Assessment & Plan Assessment & Plan (1) Type 2 diabetes mellitus with unspecified complications: Code(s): E11.8 - Type 2 diabetes mellitus with unspecified complications Category: Medical Plan: Review MUFA, vitamin D source sof foods and role of physical activity ? Used wt : 55kg (04/2023), 54 kg (06/19) Est kcal as per MSJ: 1500 (40% carb, 30% fat/prot) Est fluid needs: 1450 ml/d (25 ml/kg bw) Rec fiber: increase to 8-10 g per day and gradually increase to 25 g/d or as tolerated Rec Na: < 2000 mg /d Educate patient on: (R= Reviewed, V = verbalizes understanding N/R= Needs review N/A= not applicable) * Food sources of carbohydrates and serving adequate serving sizes : R * Difference between complex carbohydrates and simple carbohydrates, role of fiber: R * Differences between fats (MUFA/PUFA/saturated fats, trans fats) and food sources of various fats: R * Food sources of sodium and salt and healthy modifications for heart health and kidney health: R * Vitamins and minerals: R V * How to interpret food labels: R, V * Healthy Plate method concept: R , V * Physical activity: benefits and precaution: R , V Patient Instructions: Choose fiber rich foods after fast break (legumes/beans/quinoa/millet) and keep hydrated by having milk/decaf beverages Always carry glucose tablets to treat low blood sugar levels consult with doctor if having low blood sugar (less than 70) or high blood sugar (consistently high, above 180 ) for further review Coding Level of Care Code Nutr Indiv Subseq (87646) Diagnoses Type 2 diabetes mellitus with unspecified complications E11.8 Time Spent (min) 30
[2024-06-04 11:55] VITALS: BMI 22.6
--- OUTSIDE RECORDS SUMMARY | 2024-06-04 12:54 | XMS_ITS ---
Author Organization [facility] Address [address] [place] [phone] Support Name Relationship Address Phone DALILA KIERRA Emergency Contact [address] [place], [place] [phone] OVIDIO MARSHALL Guarantor Unknown Care Team Providers Care Belt Line Feeder Name Role Phone Marleen Spain Primary Care Provider Aravind Luke Unavailable [phone] Allergies No Known Allergies REASON FOR VISIT Patient presents today for a recall colonoscopy Medications Medication SIG (Take, Route, Frequency, Duration) Notes [...] the day Orally Once a day Not-Taking Problems Problem Type SNOMED Code ICD Code Onset Dates Problem Status W/U Status Risk Notes Problem Colon cancer screening (079933849) Colon cancer screening (Z12.11) Active confirmed Problem Pre-procedure evaluation check (512960915) Encounter for other preprocedural examination (Z01.818) Active confirmed Problem Anemia (665048996) Anemia (D64.9) Active confirmed Vital Signs Temperature 98.0 degrees Fahrenheit 04/25/19 25 Blood pressure systolic 000 mm Hg 04/25/19 25 Blood pressure diastolic 00 mm Hg 025 Height 60.5 in 04/25/2024 Weight 127 lbs 04/25/2024 BMI 24.39 kg/m2 04/25/2024 Encounters Encounter Location Date Provider Diagnosis [facility] [address] [place] [address] 04/25/2024 Aravind Prince Colon cancer screeni ng Z12.11 ; Anemia D64.9 and Encounter for other preprocedural examination Z01.818 Assessments Encounter Date Diagnosis (ICD Code) Assessment Notes Treatment Notes Treatment Clinical Notes Section Notes 04/25/2024 Colon cancer screening (ICD-10 - Z12.11) Do not take the Metformin the night before nor on the day of the colonoscopy Take only 1/2 the usual Insulin the night before and on the morning of the colonoscopy Overall, Ovidio appears well and is not having any particularly new nor worrisome GI complaints. She does remain somewhat anemic as of last year, but the hemoglobin is about the same as it was back in 2013 when she had a negative GI workup including the upper endoscopy, colonoscopy, and Hemoccult cards. At this point I recommended a followup colonoscopy for screening purposes given her last exam being negative over 10 years ago. We did review the rationale for that regard to colon cancer prevention. Full consent was obtained for this, including risks of bleeding and perforation. The procedure will be done with monitored anesthesia care. She was given the below instructions regarding adjustment of her medications for the procedure. Ovidio was comfortable with this plan. Thank you again for allowing me to participate in Ovidio's care. I shall continue to keep you advised of her progress. 04/25/2024 Anemia (ICD-10 - D64.9) Overall, Ovidio appears well and is not having any particularly new nor worrisome GI complaints. She does remain somewhat anemic as of last year, but the hemoglobin is about the same as it was back in 2013 when she had a negative GI workup including the upper endoscopy, colonoscopy, and Hemoccult cards. At this point I recommended a followup colonoscopy for screening purposes given her last exam being negative over 10 years ago. We did review the rationale for that regard to colon cancer prevention. Full consent was obtained for this, including risks of bleeding and perforation. The procedure will be done with monitored anesthesia care. She was given the below instructions regarding adjustment of her medications for the procedure. Ovidio was comfortable with this plan. Thank you again for allowing me to participate in Ovidio's care. I shall continue to keep you advised of her progress. 04/25/2024 Encounter for other preprocedural examination (ICD-10 - Z01.818) Overall, Ovidio appears well and is not having any particularly new nor worrisome GI complaints. She does remain somewhat anemic as of last year, but the hemoglobin is about the same as it was back in 2014 when she had a negative GI workup including the upper endoscopy, colonoscopy, and Hemoccult cards. At this point I recommended a followup colonoscopy for screening purposes given her last exam being negative over 10 years ago. We did review the rationale for that regard to colon cancer prevention. Full consent was obtained for this, including risks of bleeding and perforation. The procedure will be done with monitored anesthesia care. She was given the below instructions regarding adjustment of her medications for the procedure. Ovidio was comfortable with this plan. Thank you again for allowing me to participate in Josefinas care. I shall continue to keep you advised of her progress. Plan Of Treatment Treatment Notes Assessment Notes Colon cancer screening Do not take the Metformin the night before nor on the day of the colonoscopy Take only 1/2 the usual Insulin the night before and on the morning of the colonoscopy Future Test Test Name Order Date COLONOSCOPY 04/25/2024 Next Appt Details Follow Up: prn, Reason: Provider Name:Aravind Prince , 08/27/2024 07:30:00 AM, [address] [place] [address] , [place], [place], [id number], Progress Notes * OVIDIO MARSHALLDOB: (63 yo F)Acc No.[id number]:04/25/2024 Progress Notes Patient:?JEREMÍAS MARSHALL [place] Provider:?Aravind Prince MD :1960???Age:63 Y???Sex:Female D ate:04/25/2024 Address:[address] [place] [address] Pcp:Marleen Spain Subjective: * Chief Complaints: * ???Patient presents today fo r a recall colonoscopy * HPI: ???incontinence:? I saw Ovidio in the office today for evaluation of colorectal cancer screening. ?I last saw Ovidio in 2013, at which time we had reviewed her previous upper endoscopy and colonoscopy from earlier that year. She had those procedures done for evaluation of anemia. Both of the procedures were negative including duodenal biopsies that were negative for celiac disease. She currently feels well other than some mild intermittent constipation. She describes having a bowel movement anywhere from daily to every second or third day. However, she is not uncomfortable and denies any signs of bleeding with her bowel movements. She enjoys a good appetite and denies any significant heartburn nor dysphagia. She denies abdominal pain, signs of jaundice, nor unintentional weight loss . She denies any known family history of colon cancer. ?Laboratories in August of 2023 revealed normal chemistries and renal function, normal LFTs, normal TSH, and a ferritin of 14. In April of 2023 she had a hemoglobin of 11.0. * ROS:?General/Constitutional:?Change in appetite?denies.?Chills?denies.?Fatigue?denies.?Ophthalmologic:?Comments?all negative.?ENT:?Comments?all negative.?Respiratory:?hemoptysis?denies.?Cough?denies.?Cardiovascular:?Chest pain?denies.?Orthopnea?denies.?Gastrointestinal:?Comments?See HPI for details.?Genitourinary:?Hematuria?denies.?Dysuria?denies.?Musculoskeletal:?Painful joints?denies.?Weakness?denies.?Skin:?Itching?denies.?Rash?denies.?Neurologic:?Headache?denies.?Seizures?denies.?Psychiatric:?Comments?all negative.? * Medical History:? * Surgical History:?Uterine po lyps * Hospitalization/Major Diagno stic Procedure:?No Hospitalization History. * Family History:?Father: dece ased, diagnosed with Diabetes.?Mother: .? No colorectal cancer. No family history of liver cancer. * Social History:?Tobacco Use:?Tobacco Use/Smoking?Are you a: nonsmoker.?Drugs/Alcohol:?Alcohol Screen?Points: 0, Interpretation: Negative.?Miscellaneous:?Marital status: . Occupation: Homemaker. ???Nonsmoker; no alcohol. Came here from [facility] in 2006. * Medications:?TakingmetFORMIN HCl 1000 MG Tablet 1 tablet with meals Orally Twice a daySimvastatin 20 MG Tablet 1 tablet in the evening Orally Once a dayVitamin B12 100 MCG Tablet 1 tablet Orally Once a daySenokot S 8.6-50 MG Tablet 1 tablet in the evening as needed Orally Once a dayMulti Vitamin/Minerals Insulin Glargine-yfgn 100 UNIT/ML Solution Pen-injector Subcutaneous Rosuvastatin Calcium 40 MG Tablet Oral Losartan Potassium 50 MG Tablet Oral BD Pen Needle Chanell 2nd Gen 32G X 4 MM Miscellaneous Latanoprost 0.005 % Solution Ophthalmic Lantus SoloStar 100 UNIT/ML Solution Pen-injector Subcutaneous HumaLOG KwikPen 100 UNIT/ML Solution Pen- injector Subcutaneous Taking metFORMIN HCl 1000 MG Tablet 1 tablet with meals Orally Twice a dayTaking Simvastatin 20 MG Tablet 1 tablet in the evening Orally Once a dayTaking Vitamin B12 100 MCG Tablet 1 tablet Orally Once a dayTaking Senokot S 8.6-50 MG Tablet 1 tablet in the evening as needed Orally Once a dayTaking Multi Vitamin/Minerals Taking Insulin Glargine-yfgn 100 UNIT/ML Solution Pen-injector Subcutaneous Taking Rosuvastatin Calcium 40 MG Tablet Oral Taking Losartan Potassium 50 MG Tablet Oral Taking BD Pen Needle Chanell 2nd Gen 32G X 4 MM Miscellaneous Taking Latanoprost 0.005 % Solution Ophthalmic Taking Lantus SoloStar 100 UNIT/ML Solution Pen-injector Subcutaneous Taking HumaLOG KwikPen 100 UNIT/ML Solution Pen- injector Subcutaneous Not-Taking/PRNGlimepiride 4 MG Tablet 1 tablet with breakfast or the first main meal of the day Orally Once a dayMotrin IB 200 MG Tablet 1 tablet as needed Orally every 6 hrsMeloxicam 7.5 MG Tablet Oral Medication List reviewed and reconciled with the patientNot-Taking/PRN Glimepiride 4 MG Tablet 1 tablet with breakfast or the first main meal of the day Orally Once a dayNot-Taking/PRN Motrin IB 200 MG Tablet 1 tablet as needed Orally every 6 hrsNot-Taking/PRN Meloxicam 7.5 MG Tablet Oral Medication List reviewed and reconciled with the patient * Allergies:?N.K.D.A.yes[Aller gies Verified] Objective: * Vitals:?Wt: 127 lbs, Ht: 60. 5 in, BMI:24.39 Index, BP: 000/00 mm Hg, Temp: 98.0. * Examination: ???General Examination: ?GENERAL APPEARANCE:?pleasant, well nourished, well developed, in no acute distress.?EYES:?sclera non-icteric.?ORAL CAVITY:?mucosa moist.?NECK/THYROID:?no cervical lymphadenopathy, neck supple.?SKIN:?nonjaundiced, no spider angiomata.?HEART:?S1, S2 normal.?LUNGS:?clear to auscultation bilaterally.?ABDOMEN:?normal bowel sounds, no guarding or rigidity, no guarding or rigidity, no masses palpable, soft, nontender, nondistended.?EXTREMITIES:?no edema.?NEUROLOGIC:?alert and oriented.? Assessment: * Assessment: 1.?Anemia - D64.9 (Primary)? 2.?Colon cancer screening - Z12.11?3.?Encounter for other preprocedural examination - Z01.818? Overall, Ovidio appears we ll and is not having any particularly new nor worrisome GI complaints. She does remain somewhat anemic as of last year, but the hemoglobin is about the same as it was back in 2014 when she had a negative GI workup including the upper endoscopy, colonoscopy, and Hemoccult cards. At this point I recommended a followup colonoscopy for screening purposes given her last exam being negative over 10 years ago. We did review the rationale for that regard to colon cancer prevention. Full consent was obtained for this, including risks of bleeding and perforation. The procedure will be done with monitored anesthesia care. She was given the below instructions regarding adjustment of her medications for the procedure. Ovidio was comfortable with this plan. Thank you again for allowing me to participate in Ovidio's care. I shall continue to keep you advised of her progress. Plan: * Treatment: Notes: Do not take the Metformin the night before nor on the day of the colonoscopy Take only 1/2 the usual Insulin the night before and on the morning of the colonoscopy?? * Procedure Codes:?3017F COLOR ECTAL CA SCREEN DOC [id number] TOBACCO [id number] BP SCR NOT PRFRM REC REASON NOS * Preventive Medicine:? ??Urinary Incontinence:?Urinary Incontinence?Assessment:?Absent,?Plan of care documented:?No, reason not specified.? ??Screenings:?Fall Risk Screening?Fall Risk Assessment:?One fall with injury in the past year,?Screening:?One fall with injury in the past year,?Assessment:?Not performed, no reason specified,?Plan of Care:?Documented,?Type of fall plan of care:?Balance, strength and gait training or instruction provided.? * Follow Up:?prn * * Sign off status: Completed true * Provider:?Aravind Prince MD Date:? 025 Generated for Delbert ledezma/Otis/Stas on:?06/04/2024 12:54 PM EDT History and Physical Notes * HPI (History of Present Illness) Category Sub-Category Detail Notes Category Not es incontinence I saw Ovidio in the office today for evaluation of colorectal cancer screening. I last saw Ovidio in 2013, at which time we had reviewed her previous upper endoscopy and colonoscopy from earlier that year. She had those procedures done for evaluation of anemia. Both of the procedures were negative including duodenal biopsies that were negative for celiac disease. She currently feels well other than some mild intermittent constipation. She describes having a bowel movement anywhere from daily to every second or third day. However, she is not uncomfortable and denies any signs of bleeding with her bowel movements. She enjoys a good appetite and denies any significant heartburn nor dysphagia. She denies abdominal pain, signs of jaundice, nor unintentional weight loss . She denies any known family history of colon cancer. Laboratories in August of 2023 revealed normal chemistries and renal function, normal LFTs, normal TSH, and a ferritin of 14. In April of 2023 she had a hemoglobin of 11.0. Examination Category Sub-Category Detail Notes Category Not es General Examination GENERAL APPEARANCE: pleasant , well [...]
--- OUTSIDE RECORDS SUMMARY | 2024-06-04 12:54 | XMS_ITS | Clinical Summary ---
Author Organization [employer] Address [address] [facility] 7t [place] [address] Care Team Providers Care Disintegrator Operator Name Role Phone Unavailable Primary Care Provider [...] 05/08/2024 9:40 AM EST Office Visit [facility] [address] [place] [address] Christine Singer Encounter for dental examination (Primary [...] Description 11/29/2024 11:00 AM EDT Office Visit [facility] [address] [place] [address] April Ziegler Health Maintenance Due Date Last [...] Most Recently Relevant to Health Maintenance Insurance [facility] MEDICAID STAND ADULT
--- OUTSIDE RECORDS SUMMARY | 2024-06-04 12:54 | XMS_ITS | Clinical Summary ---
Author Organization [facility] Facility Address [address] [place] [address] Care Team Providers Care Manager Assessment Name Role Phone Marleen Spain MD Primary [...] Visit [facility] [address] [place] [address] Dmitry Najera MD Type 2 [...] Office Visit [facility] [address] [place] [address] Dmitry Najera MD [address] [phone] Health Maintenance Due Date Last Done Comments [...] U/L Total Bilirubin 0.30 MG/DL eGFR Non-Afr Sierra Leonean 66 Total Protein, Serum 6.9 Globulin, Total 2.4 g/dL Blood 04/20/2024 [facility] Provider LAB BLOOD ORDERABLES Tracy l Result from Last 3 Months Insurance [place]IC[place] Care Teams Manager Assessment Relationship Specialty Start Date End Date Marleen Spain MD [address] [place] [address] [place] [address] PCP - General Internal Medicine 05/10/24
--- OUTSIDE RECORDS SUMMARY | 2024-06-04 12:55 | XMS_ITS | Patient Health Record ---
Author Organization [facility] Address [address] [place] [phone] Support Name Relationship Address Phone DALILA KIERRA Emergency Contact [address] 03[address] [place], [place] [phone] OVIDIO MARSHALL Guarantor Unknown Care Team Providers Care Area Intelligence Technician Name Role Phone Brittonyasmine Marleen Primary Care Provider UnavailAravind Wells Unavailable [phone] Allergies No Known Allergies Reason For Referral No Information Medications Medication SIG (Take, Route, Frequency, Duration) [...] Calcium 40 MG Oral for 90 Active Immunizations Vaccine Route Administration Date Status Comme nts Influenza Unknown 11/15/2023 Administered Problems Problem Type SNOMED Code ICD Code Onset Dates Problem Status W/U Status Risk Notes Problem Colon cancer screening (849033358) Colon cancer screening (Z12.11) Active confirmed Problem Pre-procedure evaluation check (090313901) Encounter for other preprocedural examination (Z01.818) Active confirmed Problem Anemia (197089984) Anemia (D64.9) Active confirmed Vital Signs Temperature 98.0 degrees Fahrenheit 04/25/2024 Blood pressure diastolic 00 mm Hg 04/25/2024 Height 60.5 in 04/25/2024 Blood pressure systolic 000 mm Hg 04/25/2024 Weight 127 lbs 04/25/2024 BMI 24.39 kg/m2 04/25/2024 Encounters Encounter Location Date Provider Diagnosis [facility] [address] [place] [phone] 04/25/2024 Aravind Prince Colon cancer screeni ng Z12.11 ; Anemia D64.9 and Encounter for other preprocedural examination Z01.818 [facility] [address] [place] [phone] 04/25/2024 Aravind Prince Assessments Encounter Date Diagnosis (ICD Code) Assessment [...] advised of her progress. Plan Of Treatment Pending Test Test Name Order Date IRON + IBC (FE) 02/07/2014 IRON + IBC (FE) 09/18/2013 IRON + IBC (FE) 11/06/2013 FERRITIN 02/07/2014 FERRITIN 09/18/2013 FERRITIN 11/06/2013 CBC w DIFF 11/06/2013 CBC w DIFF 02/07/2014 CBC w DIFF 09/18/2013 CELIAC PANEL #10 09/18/2013 Future Test Test Name Order Date COLONOSCOPY 09/18/2013 COLONOSCOPY 04/25/2024 Next Appt Details Provider Name:Aravind Prince , 08/27/2024 07:30:00 AM, [address] [facility] , [place], [place], [id number], Insurance Providers Payer Name Payer Address Payer Phone Subscriber Number Group Number Insured Name Patient Relationship to Insured Coverage Start Date Coverage End Date MED[place] [address] [place] [address] [id number] OVIDIO MARSHALL Self - patient is the insured MEDICAID OF [facility] [address] [place] [address] [id number] OVIDIO MARSHALL Self - patient is the insured Medical (General) History Medical History History ICD Code IDDM Denies [place],CVA,Lung disease,renal disease Hyperlipidemia Anemia--Hgb 11.6 and Ferriti n of 6 in 11/2012, and 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
--- OUTSIDE RECORDS SUMMARY | 2024-06-04 12:55 | XMS_ITS | Encounter Summary ---
Author Organization [employer] Address [address] [facility] 7t [place] [address] Care Team Providers Care Paint Line Supervisor Name Role Phone Unavailable Primary Care [...] 11/29/2024 11:00 AM EDT Office Visit [facility] D[facility] [address] [place] [address] April Ziegler documented as of this encounter Visit Diagnoses Not on filedocumented in this encounter
--- OUTSIDE RECORDS SUMMARY | 2024-06-04 12:55 | XMS_ITS ---
Author Organization [facility] Address [address] [place] [phone] Support Name Relationship Address Phone KIERRA CONNER Emergency Contact 42 03[address] [place], [place] [phone] OVIDIO MARSHALL Guarantor Unknown [phone] Care Team Providers Care Ice Cream Mixer Name Role Phone Marleen Spain Primary Care Provider Unavailab Aravind [facility] [phone] REASON FOR VISIT bowel prep Medications Medication SIG (Take, Route, Frequency, Duration) [...] Active Encounters Encounter Location Date Provider Diagnosis [facility] [address] [phone] 04/25/2024 Aravind Prince Plan Of Treatment Medication Medication Name Sig Start Date Stop [...] Provider Name:Aravind Prince , 08/27/2024 07:30:00 AM, [address] [place] [address] , [place], [place], [phone], Progress Notes * OVIDIO MARSHALLDOB: (63 yo F)Acc No.[id number]:04/25/2024 Patient:?JEREMÍAS MARSHALL [place] :1960???Age:63 Y???Sex:Female Address:[address] [place] [address], [address] * Refills? Start MiraLax (colon prep) Powder, 17 GM/SCOOP, Orally, 1, 1 238Gm bottle mixed with Gatorade or Crystal Light, begin at 5:00 p.m. the day before the procedure, 1 day, Refills=0 Start Dulcolax (colon prep) Tablet Delayed Release, 5 MG, Orally, 4, take at 3:00 p.m and 7:00p.m., two tablets twice a day for one day, 1 day, Refills=0 * true * Date:? Generated for Delbert ledezma/Otis/eTfatumasmitting on:?06/04/2024 12:54 PM EDT
--- OUTSIDE RECORDS SUMMARY | 2024-06-04 12:55 | XMS_ITS | Encounter Summary ---
Author Organization [employer] Address [address] [facility] 7 [place] [address] Care Team Providers Care Miter Grinder Operator Name Role Phone Unavailable Primary Care Provider Unavailabl e Reason for Visit * Reason Comments Routine Cleaning Dental Exam Encounter Details Date Type Department Care Team (Latest Contact Info) Description 05/08/2024 9:40 AM EST Office Visit [facility] D[facility] [address] [place] [phone] Christine Singer Encounter for dental examination (Primary [...] 11/29/2024 11:00 AM EDT Office Visit [facility] [address] [place] [address] April Ziegler documented as of this encounter [...]
--- OUTSIDE RECORDS SUMMARY | 2024-06-04 12:55 | XMS_ITS | Encounter Summary ---
Author Organization [employer] Address [address] [facility] 7t [place] [address] Care Team Providers Care Manager Gas Name Role Phone Unavailable Primary Care Provider [...] Description 11/29/2024 11:00 AM EDT Office Visit [facility] DENTAL [address] [place] [address] April Ziegler documented as of this encounter Visit Diagnoses Not on filedocumented in this encounter
--- OUTSIDE RECORDS SUMMARY | 2024-06-04 12:55 | XMS_ITS | Encounter Summary ---
Author Organization [facility] Address [address] [place] [phone] Phone Care Team Providers Care Retail Director Name Role Phone Marleen Spain MD Primary Care Provider Unav ailable Reason for Visit * Reason Comments type 2 diabetes with diabetic nephropath y Encounter Details Date Type Department Care Team ([facility] st Contact Info) Description 05/10/2024 2:30 PM EST Office Visit [facility] [address] [place] [address] Dmitry Najera MD [address] [phone] Type 2 diabetes mellitus with [...] with past medical history of T2DM (follows [facility]), HTN, chronic ibuprofen use, varicose [...] Meloxicam. - SGTL2i can be discussed with Cleaner. - c/w insulin and f/u with Endocrine [...] Najera MD [facility] documented in this encounter Plan of Treatment Upcoming Encounters Date Type Department Care Team (Late st Contact Info) Description 05/09/2025 2:00 PM EST Office Visit [facility] 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
--- OUTSIDE RECORDS SUMMARY | 2024-06-04 12:55 | XMS_ITS | Encounter Summary ---
Author Organization [employer] Address 75 [facility] 7t [place] [address] Care Team Providers Care Corporate Treasury Analyst Name Role Phone Unavailable Primary Care Provider [...] Description 11/29/2024 11:00 AM EDT Office Visit [facility] D[facility] [address] [place] [address] April Ziegler documented as of this encounter Visit Diagnoses Not on filedocumented in this encounter
--- OUTSIDE RECORDS SUMMARY | 2024-06-04 12:55 | XMS_ITS | Encounter Summary ---
Author Organization [employer] Address [address] [facility] 7t [place] [address] Care Team Providers Care Warp Yarn Sorter Name Role Phone Unavailable Primary Care Provider [...] Description 11/29/2024 11:00 AM EDT Office Visit [facility] [address] [place] [address] April Ziegler documented as of this encounter Visit Diagnoses Not on filedocumented in this encounter
== END 2024-06-04 12:20 | disposition home or self-care (01) ==
PROVIDERS: PCP Internal Medicine; Visit Provider Dietitian, Registered
DX: E11.8 Type 2 diabetes mellitus with unspecified complications (principal)

== ENCOUNTER → 2024-06-04 11:17 | Outpatient (BNVA) | payer MEDICARE, MEDICAID, SELFPAY | PROVIDERS: PCP Internal Medicine; Visit Provider Dietitian, Registered | DX: E11.8 Type 2 diabetes mellitus with unspecified complications (principal); Z71.3 Dietary counseling and surveillance | CPT/HCPCS: 97803 ==

== ENCOUNTER 2024-08-22 14:57 | Outpatient (REF) | payer MEDICARE, MEDICAID, SELFPAY ==
--- NOTE | ~2024-08-22 | XR_ITS ---
EXAMINATION: XR THORACIC SPINE CLINICAL INFORMATION: PAIN UPPER BACK COMPARISON: None available. TECHNIQUE: 3 views of the thoracic spine were obtained. FINDINGS: Mild S-shaped curvature of the thoracolumbar spine. No acute cortical disruption or gross malalignment. No lytic or blastic lesions. XR/XR thoracic spine 3V IMPRESSION: Mild thoracolumbar scoliosis. Electronically signed by: Sony Lane MD 08/22/2024 03:56 PM EDT
== END 2024-08-22 14:58 | disposition home or self-care (01) ==
LOC: HO.XRAY 14:57
PROVIDERS: PCP Internal Medicine; Visit Provider Internal Medicine
DX: M54.6 Pain in thoracic spine (principal)
CPT/HCPCS: 72072

== ENCOUNTER → 2024-08-22 15:03 | Outpatient (BNV) | payer MEDICARE, MEDICAID, SELFPAY | PROVIDERS: PCP Internal Medicine; Visit Provider Radiology Diagnostic Radiology | DX: M54.6 Pain in thoracic spine (principal) | CPT/HCPCS: 72072 ==

== ENCOUNTER 2024-08-27 06:25 | Day surgery (SDC) | payer MEDICARE, MEDICAID, SELFPAY ==
--- OUTSIDE RECORDS SUMMARY | 2024-08-22 11:14 | XMS_ITS | Clinical Summary ---
Author Organization [facility] Facility Address [address] [place] [address] Care Team Providers Care Preparation Supervisor Freezing Name Role Phone Marleen Spain MD Primary [...] (IRON COMPLEX PO) Take by mouth Active Active Problems Problem Noted Date Diagnosed [...] Upcoming Encounters Date Type Department Care Team ([facility] st Contact Info) Description 05/09/2025 2:00 PM EST Office Visit [facility] [address] [place] [phone] Dmitry Najera MD [address] [phone] Health Maintenance Due Date Last Done Comments Breast Cancer Screening 1960 Pneumococcal Vaccine: 50+ Ye ars (1 of 2 - PCV) 1977 Colorectal Cancer Screening: Annual FOBT 12/14/2007 Colorectal Cancer Screening: Colonoscopy 12/14/2007 Colorectal Cancer Screening: Sigmoidoscopy 12/14/2007 Diabetes: Hemoglobin A1C 03/16/2022 Diabetes: Ophthalmology Exam 03/16/2022 Diabetes: Pedal Pulse Checked 03/16/2022 Diabetes: Sensory Foot Exam 03/16/2022 Diabetes: Visual Foot Exam 03/16/2022 Influenza Vaccine (Season Ended) 2024 Hepatitis B Vaccine Aged Out No longe r eligible based on patient's age to complete this topic Insurance Medicare Medicaid [place] Medicare [place] Care Teams Preparation Supervisor Freezing Relationship Specialty Start Date End Date Marleen Spain MD [address] [place] [address] [place] [phone] PCP - General Internal Medicine 05/10/24
[2024-08-23 14:37] VITALS: BMI 24.4
--- NOTE | 2024-08-24 09:02 | HO.ANESPROP2 ---
Documented by User: Nkechi Granados NP 08/24/24 09:03 HPI - Anesthesia Eval Consult details Narrative: 63yo F for Colonoscopy PMFSH Active Problems Active Problems: All Active Problems Left carpal tunnel syndrome (Acute) Numbness and tingling of left hand (Acute) De Quervain's tenosynovitis, left (Acute) Urinary frequency (Acute) Diabetic neuropathy (Acute) Peroneal neuropathy at knee (Acute) Paresthesia of skin (Acute) Knee pain, left (Acute) Precordial chest pain (Acute) Atypical chest pain (Acute) Low vitamin D level (Acute) Hypercalcemia (Acute) Essential hypertension (Acute) Hyperlipidemia, unspecified (Acute) Type 2 diabetes mellitus with unspecified complications (Acute) Past Medical History Medical History Anemia Atypical chest pain Low vitamin D level Hypercalcemia Hyperlipidemia, unspecified Essential hypertension Type 2 diabetes mellitus with unspecified complications Family History Family History Mother No problems noted. Father Diabetes Brother Diabetes Sister Diabetes Surgical History Surgical History H/O colonoscopy History of esophagogastroduodenoscopy (EGD) Hx of cervical polypectomy Social History Social History Household Members: Family Household Members Other:: daughter Alcohol intake: current Alcohol intake frequency: does not drink Patient Tobacco Use Status: Never used Tobacco e-Cigarette/Vaping Use: Never Used Have you been hit, kicked, punched, or otherwise hurt by someone within the past year? If so, by whom?: No Are you DNR?: No Advance Directives: No Advance Directives Information Provided: Yes Meds Allergies Allergy/AdvReac Type Severity Reaction Status Date / Time alogliptin Allergy Unknown contipation Verified 08/27/24 06:35 sitagliptin [Januvia] Allergy Unknown vomiting Verified 08/27/24 06:35 Home Medications ?Medication ?Instructions ?Recorded ?Confirmed ?Last Taken ?Type cyanocobalamin (vitamin B-12) 1,000 mcg PO DAILY 12/31/20 08/27/24 Unknown History 1,000 mcg tablet latanoprost 0.005 % eye drops 1 drp ophthalmic (eye) DAILY 12/31/20 08/27/24 Unknown History metformin 1,000 mg tablet 1,000 mg PO BID 12/31/20 08/27/24 Unknown History blood sugar diagnostic (FreeStyle #10 ea 10/21/21 04/19/24 Unknown History Test strips) rosuvastatin 40 mg tablet 40 mg PO DAILY 02/24/22 08/27/24 Unknown History lancets 28 gauge (FreeStyle #100 ea 05/06/22 04/19/24 Unknown History Lancets) pen needle, diabetic 32 gauge x #50 ea 05/06/22 04/19/24 Unknown History (BD Chanell 2nd Gen Pen Needle) insulin lispro 100 unit/mL See Rx Instructions subcut TID 04/19/24 08/27/24 Unknown History subcutaneous pen (Humalog KwikPen (U-100) Insulin) losartan 50 mg tablet 50 mg PO DAILY 08/23/24 08/27/24 Unknown History multivitamin 1 tab PO DAILY 08/23/24 08/27/24 Unknown History sennosides 8.6 mg tablet (senna) 8.6 mg PO BEDTIME PRN Constipation 08/23/24 08/27/24 Unknown History Exam Height,Weight and Vital Signs: Height 5 ft 0.5 in Weight 57.606 kg Assessment and Plan Assessment Anesthesia Assessment: Chart Reviewed Documented by User: Ho Heath MD 08/27/24 07:32 [facility] Past Medical History Medical History Anemia Atypical chest pain Low vitamin D level Hypercalcemia Hyperlipidemia, unspecified Essential hypertension Type 2 diabetes mellitus with unspecified complications Family History Family History Mother No problems noted. Father Diabetes Brother Diabetes Sister Diabetes Family history of problems with anesthesia: No Surgical History Surgical History H/O colonoscopy History of esophagogastroduodenoscopy (EGD) Hx of cervical polypectomy History of Problems with Anesthesia: No Social History Social History Household Members: Family Household Members Other:: daughter Alcohol intake: current Alcohol intake frequency: does not drink Patient Tobacco Use Status: Never used Tobacco e-Cigarette/Vaping Use: Never Used Have you been hit, kicked, punched, or otherwise hurt by someone within the past year? If so, by whom?: No Are you DNR?: No Advance Directives: No Advance Directives Information Provided: Yes Meds Allergies Allergy/AdvReac Type Severity Reaction Status Date / Time alogliptin Allergy Unknown contipation Verified 08/27/24 06:35 sitagliptin [Januvia] Allergy Unknown vomiting Verified 08/27/24 06:35 Home Medications ?Medication ?Instructions ?Recorded ?Confirmed ?Last Taken ?Type cyanocobalamin (vitamin B-12) 1,000 mcg PO DAILY 12/31/20 08/27/24 Unknown History 1,000 mcg tablet latanoprost 0.005 % eye drops 1 drp ophthalmic (eye) DAILY 12/31/20 08/27/24 Unknown History metformin 1,000 mg tablet 1,000 mg PO BID 12/31/20 08/27/24 Unknown History blood sugar diagnostic (FreeStyle #10 ea 10/21/21 04/19/24 Unknown History Test strips) rosuvastatin 40 mg tablet 40 mg PO DAILY 02/24/22 08/27/24 Unknown History lancets 28 gauge (FreeStyle #100 ea 05/06/22 04/19/24 Unknown History Lancets) pen needle, diabetic 32 gauge x #50 ea 05/06/22 04/19/24 Unknown History (BD Chanell 2nd Gen Pen Needle) insulin lispro 100 unit/mL See Rx Instructions subcut TID 04/19/24 08/27/24 Unknown History subcutaneous pen (Humalog KwikPen (U-100) Insulin) losartan 50 mg tablet 50 mg PO DAILY 08/23/24 08/27/24 Unknown History multivitamin 1 tab PO DAILY 08/23/24 08/27/24 Unknown History sennosides 8.6 mg tablet (senna) 8.6 mg PO BEDTIME PRN Constipation 08/23/24 08/27/24 Unknown History Exam Airway Mallampati Class: II TM Dist: <=3cm Neck ROM: Full Partial: Upper Heart: ok Lungs: ok Assessment and Plan Assessment Anesthesia Assessment: Anesthesia Plan Discussed Final Anesthetic Review Family History of Problems with Anesthesia: No History of Problems with Anesthesia: No NPO: Yes ASA Class: II Final Preanesthetic Review: No Changes in Pt Med Stat, Meds/Allgs Chart Reviewed, Consent Obtained/Reviewed and Anes Risks/Benef Reviewed Patient Risk: Intermediate Procedure Risk: Low Anesthetic Plan Anesthetic Plan: MAC: Disposition: Standard PACU
[2024-08-27 06:30] VITALS: BMI 23.2
[2024-08-27 06:59] VITALS: BP 150/66; PULSE 68; RESP 16; TEMP 36.9; O2SAT 99; BMI 23.2
[2024-08-27 07:09] LABS: Glucose, Whole Blood 137 mg/dL (60-115)
[2024-08-27 08:27] VITALS: BP 90/48; PULSE 63; RESP 20; TEMP 36.2; O2SAT 99
--- NOTE | 2024-08-27 08:31 | P.BOP_ITS ---
Brief Operative Note Date of Service: 08/27/24 Pre-op diagnosis: Screening Post-op diagnosis: other (Diverticulosis) Procedure: Colonoscopy to the cecum Surgeon: Aravind Prince MD Anesthesia: MAC Was an Electronic Equipment Maint Tech used for this Procedure?: No Estimated blood loss (mL): 0 Pathology: none sent Condition: stable Disposition: PACU
[2024-08-27 08:42] VITALS: BP 116/65; PULSE 68; RESP 16; O2SAT 100
[2024-08-27 08:57] VITALS: BP 140/65; PULSE 62; RESP 16; TEMP 36.3; O2SAT 100
--- NOTE | 2024-08-27 11:12 | OP_ITS ---
DATE OF SERVICE: 08/27/2024 SURGEON: Aravind Prince MD INDICATIONS: The patient presents for evaluation of colorectal cancer screening. Full consent was obtained from her for this, including risks of bleeding and perforation. PREOPERATIVE DIAGNOSIS: Colorectal cancer screening. POSTOPERATIVE DIAGNOSIS: Colorectal cancer screening, mild sigmoid diverticulosis, and internal hemorrhoids. PROCEDURE PERFORMED: Colonoscopy to cecum. ESTIMATED BLOOD LOSS: COMPLICATIONS: ANESTHESIA: Monitored anesthesia care. ASSISTANTS: SPECIMENS: DESCRIPTION OF PROCEDURE: Patient was placed in the left lateral decubitus position. The digital rectal exam revealed no abnormalities. The Olympus video pediatric colonoscope was entered into the rectum and advanced easily to the cecum. Once in the cecum, I did identify the cecal pouch with appendiceal orifice and a normal-appearing ileocecal valve. The cecum did require irrigation and suctioning, but ultimately good visualization was obtained. The scope was slowly withdrawn, assessing all mucosal surfaces carefully. Preparation was little bit limited in the ascending colon, but after a lot of irrigation and suctioning, I was able to achieve adequate visualization. I did not visualize any sign of polyps, colitis, nor angiodysplasia. There was a mild amount of sigmoid diverticulosis. In the rectum, the scope was retroflexed, visualizing internal hemorrhoids, but no other pathology. The rectal mucosa appeared normal. The scope was straightened and withdrawn from the patient. She tolerated the procedure well and was returned to recovery area in stable condition. IMPRESSION: 1. Diverticulosis. 2. Internal hemorrhoids. PLAN: Given the negative exam and no family history of colorectal cancer, I would recommend a repeat colonoscopy in 10 years for further screening. She will otherwise see me as needed. Of note, we did review some recent abdominal pain she has been having over the past couple weeks. She describes some burning in the epigastric area. She has not been having any vomiting, anorexia, nor any signs of bleeding. She has been using some omeprazole and other antacids with some relief. Since it has only been for couple weeks and she has no worrisome symptoms, I did advise her to continue her symptomatic treatment and let me know if things persist. I did not think she needed an endoscopy today, but did advise that if things persist or certainly if they worsen, she needs to call me and we could then consider upper endoscopy if need be. I did advise her to avoid all NSAIDs as well. This has been discussed with her family as well. MD KARI Mitchell/BASHIR / [phone] MTDAquiles
== END 2024-08-27 09:35 | disposition home or self-care (01) ==
PROVIDERS: PCP Internal Medicine; Visit Provider Internal Medicine
PROC: 0DJD8ZZ Inspection of Lower Intestinal Tract, Via Natural or Artificial Opening Endoscopic (ICD-10-PCS; CPT 45378; principal; 2024-08-27 07:30)
DX: Z12.11 Encounter for screening for malignant neoplasm of colon (principal); K57.30 Diverticulosis of large intestine without perforation or abscess without bleeding; K64.8 Other hemorrhoids; K59.00 Constipation, unspecified; D64.9 Anemia, unspecified; I10 Essential (primary) hypertension; E78.5 Hyperlipidemia, unspecified; E11.9 Type 2 diabetes mellitus without complications; Z79.4 Long term (current) use of insulin; Z79.84 Long term (current) use of oral hypoglycemic drugs; Z79.899 Other long term (current) drug therapy; Z88.8 Allergy status to other drugs, medicaments and biological substances
CPT/HCPCS: G0121; 82947; J2003; J2704

== ENCOUNTER 2024-09-05 12:14 | Outpatient (REF) | payer MEDICARE, MEDICAID, SELFPAY ==
[2024-09-05 15:02] LABS: Parathyroid Hormone Intact 98.3 pg/mL (8.7-77.1)
[2024-09-05 15:04] LABS: Calcium 10.2 mg/dL (8.4-10.2)
[2024-09-05 15:17] LABS: Vitamin D 25-OH Total 54.4 ng/mL (>30)
== END 2024-09-05 12:15 | disposition home or self-care (01) ==
LOC: HO.LAB 12:14
PROVIDERS: PCP Internal Medicine; Visit Provider Nurse Practitioner Adult Health
DX: E83.52 Hypercalcemia (principal); R79.89 Other specified abnormal findings of blood chemistry; E11.8 Type 2 diabetes mellitus with unspecified complications
CPT/HCPCS: 36415; 82306; 82310; 82947; 83970; 99212

== ENCOUNTER → 2024-09-05 12:14 | Outpatient (AMB) | payer MEDICARE, MEDICAID, SELFPAY ==
--- NOTE | 2024-09-05 12:21 | A.OFFVIS_ITS ---
Vital Signs 09/05/24 12:22 Height 5 ft 0.5 in Weight 121 lb 4.068 oz BMI 23.3 BP 124/68 Blood Pressure Location Rt brachial Position Sitting Pulse 65 Pulse Source Pulse Oximeter Pulse Oximetry (%) 98 Intake Visit Reasons: T2DM Intake Note: Patient presents today for a follow up on Type 2 Diabetes Mellitus: Millwork Estimator Language Tamil Last Diabetic eye exam was on: DUE Last Podiatry exam was on: Does not see a Hardwood Floor Refinisher Most recent HbA1c: 7.7%, 08/21/2024 at PCP Random Glucose- 116 mg/dL, Today Millwork Estimator Required: Yes Millwork Estimator Language: Delroync Millwork Estimator Services: Millwork Estimator Present (voice only via [place] [employer] research and development director nazia) Millwork Estimator Name: Ifrah #[id number] Information Interpreted: non-clinical & clinical Accompanied by: Self / Same As Patient Allergies alogliptin Allergy (Unknown, Verified 09/20/24 13:58) contipation sitagliptin (Januvia) Allergy (Unknown, Verified 09/20/24 13:58) vomiting HPI Comments Details: 63 YO F who is seen in f/u for T2DM. She was last seen by myself 04/17/24 with an Hgb A1C 8.6%, 09/05/24 % Hgb A1C 04/17/23 8%, previous 7.1% Initially diagnosed with T2DM 20 yrs ago Was initially started on treatment with metformin. Was on Trulicity 0.75 mg weekly but she was losing too much weight due to poor appetite. Her weight has stabilized Current regime: Metformin 1000 mg BID Lantus 14 units Humalog breakfast 8 units lunch 13 units supper 6 units no recent lows Treats low with sugar Dexcom average glucose: 211 14 day continuous glucose sensor report reviewed Time CGM active 55 % TIme in ranges: 22 % very high (above 250) 43 % high (181-250) 35 % in range (70-180] 0 % low (69-55) 0 % very low (below 54) Interpretation of CGMS: high after meals Family history of T2DM in father and siblings . Has eyes checked yearly, last eye exam 07/2024 denies retinopathy goes every 4 months for glaucoma Denies neuropathy, ,does not see podiatry. + nephropathy, on LEIF. 05/2023 urine microalbumin: 5.0 eGFR 56 Has HLD, on statin. 05/2023: LDL 59 Denies CAD. Had ekg through pcp Has been seen by nutrition in the past and follows a balanced diet. She was seen by [facility] endocrinology as she was not able to get an appointment here for slightly elevated calcium and PTH. She reports she had a bone density test done and she was advised her vitamin-D was low and she has been started on 2000 IU use daily. This was refilled today and another request was sent to [facility] for labs 09/14/23 calcium 9.8 albumin 4.5 ionzed calcium 5.2 pth 45 vit d 55.1 up from 24.2 08/17/23 [facility] Medical History Anemia Atypical chest pain Low vitamin D level Hypercalcemia Hyperlipidemia, unspecified Essential hypertension Type 2 diabetes mellitus with unspecified complications Surgical History H/O colonoscopy History of esophagogastroduodenoscopy (EGD) Hx of cervical polypectomy Family History Mother No problems noted. Father Diabetes Brother Diabetes Sister Diabetes Social History Household Members: Family Household Members Other:: daughter Alcohol intake: current Alcohol intake frequency: does not drink Patient Tobacco Use Status: Never used Tobacco e-Cigarette/Vaping Use: Never Used Physical Exam Vital Signs: Last Vital Signs Pulse 65 09/05/24 12:22 BP 124/68 09/05/24 12:22 Pulse Ox 98 09/05/24 12:22 BMI result Body Mass Index 23.3 Results Reviewed Results Reviewed: Laboratory Last Values Glucose (Clinic) 116 mg/dL (60-115) H 09/05/24 12:29 Assessment & Plan Assessment & Plan (1) Type 2 diabetes mellitus with unspecified complications: Code(s): E11.8 - Type 2 diabetes mellitus with unspecified complications Category: Medical Plan: 63-year-old type 2 diabetic with fair glycemic control. Insulin adjusted upward The patient had an opportunity to ask questions regarding treatment plan. The patient expressed understanding and agreement with the above treatment plan. The patient is aware they should contact our office by phone for worsening glucose readings or for any low blood sugars which may warrant a change in diabetes medication. Compliance is encouraged with medications and any followup testing/consults which may have been ordered. (2) Hypercalcemia: Code(s): E83.52 - Hypercalcemia Category: Medical Plan Secondary to low vitamin-D. We will recheck blood work as calcium which had nor malized is now elevated. obtain dexa results Orders: Orders Vitamin D 25-OH Total 09/05/24 E83.52 - Hypercalcemia Parathyroid Hormone Intact 09/05/24 E83.52 - Hypercalcemia Calcium, 24 Hr Ur 09/11/24 E83.52 - Hypercalcemia Creatinine, 24 Hr Group 09/11/24 E83.52 - Hypercalcemia Patient Instructions: Check your feet daily looking for any signs of infection, drainage, redness, ulceration and seek medical attention if this occurs. Break in shoes gradually and do not wear open-toed shoes or walk stocking footed or barefooted. The patient was counseled to achieve a target A1C of 7% (154 avg). Fasting blood sugars should be 90-130 in the morning and less than 180 two hours after meals. Reviewed the relationship between poor diabetic control and the development of complications. Coding Level of Care Code Est Pt Level 4 (33414) Complex EM visit Add On G2211 Diagnoses Type 2 diabetes mellitus with unspecified complications E11.8 Hypercalcemia E83.52 Time Spent (min) 30 Comment Time spent reviewing labs/provider notes, face to face, chart doc
[2024-09-05 12:22] VITALS: BP 124/68; PULSE 65; O2SAT 98; BMI 23.3
[2024-09-05 12:36] LABS: Glucose, Whole Blood 116 mg/dL (60-115)
--- OUTSIDE RECORDS SUMMARY | 2024-09-05 13:48 | XMS_ITS | Clinical Summary ---
Author Organization [facility] Address [address] [place] [address] Care Team Providers Care Project Development Director Name Role Phone Marleen Spain MD [...] Upcoming Encounters Date Type Department Care Team ([facility] st Contact Info) Description 05/09/2025 2:00 PM EST Office Visit [facility] [address] [place] [phone] Dmitry Najera MD [address] [phone] Health Maintenance Due Date Last Done Comments [...] Medicaid [place] Care Teams Project Development Director Relationship Specialty Start Date End Date Marleen Spain MD [address] [place] [address] [place] [phone] PCP - General Internal Medicine 05/10/24
== END ==
LOC: HO.ENCR 12:14
PROVIDERS: PCP Internal Medicine; Visit Provider Nurse Practitioner Adult Health
DX: E11.8 Type 2 diabetes mellitus with unspecified complications (principal); E83.52 Hypercalcemia
CPT/HCPCS: 99214; G2211

== ENCOUNTER 2024-09-11 10:44 | Outpatient (REF) | payer MEDICARE, MEDICAID, SELFPAY ==
--- OUTSIDE RECORDS SUMMARY | 2024-09-11 12:13 | XMS_ITS | Clinical Summary ---
Author Organization [facility] Address [address] [place] [address] Care Team Providers Care Coal Cager Name Role Phone Marleen Spain MD Primary [...] Upcoming Encounters Date Type Department Care Team ([facility] st Contact Info) Description 05/09/2025 2:00 PM EST Office Visit [facility] [address] [place] [phone] Dmitry Najera MD [address] [phone] Health Maintenance Due Date Last Done Comments [...] Medicaid [place] Medicare [place] Care Teams Coal Cager Relationship Specialty Start Date End Date Marleen Spain MD [address] [place] [address] [place] [phone] PCP - General Internal Medicine 05/10/24
[2024-09-11 12:32] LABS: Creatinine, 24Hr Urine 0.8 G/Day (1.0-2.0); Creatinine, mg/dL 28.53; Total Volume 24 Hour Urine 2975 mL
[2024-09-16 21:39] LABS: Calcium, 24 Hr Urine 65 mg/24 h; Calcium/Creatinine Ratio 69 mg/g creat (30-275); Creatinine 24Hr Urine 0.95 g/24 h (0.50-2.15)
== END 2024-09-11 10:45 | disposition home or self-care (01) ==
LOC: HO.LNP 10:44
PROVIDERS: Visit Provider Nurse Practitioner Adult Health
DX: E83.52 Hypercalcemia (principal)
CPT/HCPCS: 82340; 82570

== ENCOUNTER 2024-09-20 11:27 | Outpatient (AMB) | payer MEDICARE, MEDICAID, SELFPAY ==
--- NOTE | 2024-09-20 11:47 | A.OFFVIS_ITS ---
Intake Visit Reasons: 6m/PVR Intake Note: Patient presents today for follow up visit on: frequency Urology Medications: none Allergies to Antibiotic: none Blood Thinner: none PVR:0ml's Wig Maker Required: Yes Wig Maker Name: Ileana [id number] Accompanied by: Self / Same As Patient Allergies alogliptin Allergy (Unknown, Verified 09/20/24 13:58) contipation sitagliptin (Januvia) Allergy (Unknown, Verified 09/20/24 13:58) vomiting Medication List - Last Reconciled 09/20/24 by ELDA Magaña- Basaglar KwikPen U-100 Insulin (insulin glargine) 14-16 units subcutaneously every evening; 30 days NS blood sugar diagnostic (FreeStyle Test strips) As directed blood-glucose sensor (Dexcom G6 Sensor device) As directed blood-glucose transmitter (Dexcom G6 Transmitter device) As directed blood-glucose,go cart mechanic,cont (Dexcom G6 Clinical Documentation Specialist) As directed cyanocobalamin (vitamin B-12) 1,000 mcg PO DAILY insulin lispro (Humalog KwikPen (U-100) Insulin) Breakfast 6 units, lunch 13 units, supper 8 units subcutaneously 3 times a day; lancets (FreeStyle Lancets) As directed 3 times a day latanoprost 0.005% 1 drp ophthalmic (eye) DAILY losartan 50 mg PO DAILY metformin 1,000 mg PO BID multivitamin 1 tab PO DAILY pen needle, diabetic (BD Chanell 2nd Gen Pen Needle) As directed once a day rosuvastatin 40 mg PO DAILY sennosides (senna) 8.6 mg PO BEDTIME PRN HPI Comments Details: Ana is a very pleasant Tamil speaking patient of Dr. Spain. She has a past medical history of diabetes, hypertension, and dyslipidemia. She presents to the office today for follow-up of her lower urinary tract symptoms. In discussion with the patient today she reports to be doing and feeling well. She does report noting episodes of urinary frequency. She reports the symptoms are not always daily however she does feel they are frequent. Previous workup has included a retroperitoneal ultrasound 11/18 noting bilateral kidneys with no calculi or obstruction appreciated. The urinary bladder is unremarkable. We have discussed bladder triggers and irritants and she reports she has attempted to limit and has found this helpful. She otherwise denies incontinence, nocturia, hematuria, dysuria, foul smelling urine, changes to urinary stream, flank pain, fever, and or chills. She is happy with her current voiding parameters. In office urinalysis results reviewed with the patient today. PVR 0 mL. She otherwise offers no other issues or concerns at this time. In review of patient's chart it appears A1c 04/21 8.6. We did discussed the importance of management and diabetes for improvement in lower urinary tract symptoms as well as overall health and well-being. We also discussed further treatment options of urinary frequency and risks and benefits of these treatment options. She would like to continue with surveillance monitoring at this time. All questions were answered [facility] Medical History Anemia Atypical chest pain Low vitamin D level Hypercalcemia Hyperlipidemia, unspecified Essential hypertension Type 2 diabetes mellitus with unspecified complications Surgical History H/O colonoscopy History of esophagogastroduodenoscopy (EGD) Hx of cervical polypectomy Family History Mother No problems noted. Father Diabetes Brother Diabetes Sister Diabetes Social History Household Members: Family Household Members Other:: daughter Alcohol intake: current Alcohol intake frequency: does not drink Patient Tobacco Use Status: Never used Tobacco e-Cigarette/Vaping Use: Never Used Review of Systems Const All systems reviewed & are unremarkable except as noted in HPI and below Physical Exam Const General: cooperative, healthy appearing, comfortable, no acute distress, well developed, alert and awake Orientation/consciousness: patient oriented x3 Limitations: language barrier HEENT Head: Yes normal to inspection Ears: hearing grossly normal bilaterally Eyes General: appearance normal, both eyes and all related structures Neck Neck: Yes normal visual inspection and Yes trachea midline Chest Chest palpation & inspection: normal inspection of the chest Resp Effort & Inspection: normal respiratory effort and able to speak in complete sentences Cardio Rate: regular rate GI Inspection: Yes normal to inspection General: Yes no CVA tenderness Back/Spine/Pelvis Back: no CVA tenderness Skin General skin exam: no rashes or lesions noted Neuro General: patient oriented x3 Extrem General: Yes normal to inspection Psych Appearance: grossly normal and well kempt Mental Status: mental status grossly normal Speech and movement: Normal speech and movement present and Clear speech present Affect: normal affect Attitude: cooperative Thought process: Normal thought process present Thought content: Normal thought content present Insight: Fair insight present (Psych) Judgement: Fair judgement present (Psych) Office Procedures Post Void Residual Post Residual Void Post Void Residual (PVR): 0 [id number] Void Residual by ultrasound Results AMB Urinalysis, Automated UA Leukoctes 0 Bree/uL Last Edit by Rocio Osuna [facility] on 09/20/24 12:18 UA Nitrite Last Edit by [facility] on 09/20/24 12:18 UA Urobilinogen 0.2 mg/dL Last Edit [facility] on 09/20/24 12:1 8 UA Protein 0 mg/dL Last Edit by [facility] Alexsandra [facility] on 09/20/24 12:18 UA pH 6.0 Last Edit by [facility] on 09/20/24 12:18 UA Blood 0 Chris/uL Last Edit by [facility] Alexsandra [facility] on 09/20/24 12:18 UA Specific [place] 1.010 Last Edit by Rocio Osuna [facility] on 09/20/24 12: 18 UA Ketone Last Edit by [facility] on 09/20/24 12:18 UA Bilirubin 0 mg/dL Last Edit by [facility] Alexsandra [facility] on 09/20/24 12:18 UA Glucose 500 mg/dL Last Edit by [facility] Alexsandra [facility] on 09/20/24 12:18 Results Reviewed Results Reviewed: Laboratory Last Values Urine pH (Auto) 6.0 09/20/24 12:17 Specific [place] (Auto) 1.010 09/20/24 12:17 Urine Protein (Auto) 0 mg/dL 09/20/24 12:17 Glucose (UA)(Auto) 500 mg/dL 09/20/24 12:17 Urine Blood (Auto) 0 Chris/uL 09/20/24 12:17 Urine Bilirubin (Auto) 0 mg/dL 09/20/24 12:17 Urine Urobilinogen (Auto) 0.2 mg/dL 09/20/24 12:17 Leukocyte Esterase (Auto) 0 Bree/uL 09/20/24 12:17 Assessment & Plan Assessment & Plan (1) Urinary frequency: Code(s): R35.0 - Frequency of micturition Category: Medical Plan In office urinalysis results reviewed with the patient today; as noted above. PVR 0 mL. Patient will continue with surveillance monitoring. She reports feeling symptoms very day to day. Discussed bladder triggers/irritants. Discussed further treatment options. We discussed at length importance of managing diabetes for improvement lower urinary tract symptoms as well as overall health and well-being and correlation of uncontrolled diabetes with lower urinary tract symptoms. Follow-up in 6 months with PVR; or sooner with any issues, concerns, and or questions. Orders: Orders AMB Post Void Residual by ultrasound Today R35.0 - Frequency of micturition AMB Urinalysis Automated Today Z13.9 - Encounter for screening, unspecified Patient Instructions: The patient had an opportunity to ask questions regarding the treatment plan. All questions were answered. Physical exam, labs, and imaging were discussed and reviewed in detail. As well as risks, benefits, and discussion of treatment choices. No major barriers to understanding were identified. The patient expressed understanding and agreement with the above treatment plan. The patient was made aware they should contact our office by phone for worsening of their current condition, the appearance of new symptoms, or with any questions or concerns. Compliance is encouraged with any medications and follow up testing that is ordered. It is a privilege to be allowed the opportunity to participate in? your urological care.? Again, if you have any questions or concerns If you have any questions or concerns please do not hesitate to contact me. The office is [phone]. This note is constructed using voice recognition software. While every effort has been made to ensure accuracy silverware washer errors may have been included. Yours sincerely, ROMA Magaña Coding Level of Care Code Est Pt Level 3 (12061) Complex EM visit Add On G2211 Diagnoses Urinary frequency R35.0 CPT Codes Post Residual Void - PVR CPT Code: 27436-Jbzr Void Residual by ultrasound ([id number])
--- OUTSIDE RECORDS SUMMARY | 2024-09-20 13:50 | XMS_ITS | Clinical Summary ---
Author Organization [facility] Facility Address [address] [place] [address] Care Team Providers Care Import Customs Clearing Agent Name Role Phone Marleen Spain MD Primary [...] Upcoming Encounters Date Type Department Care Team ([facility] st Contact Info) Description 05/09/2025 2:00 PM EST Office Visit [facility] [address] [place] [phone] Dmitry Najera MD [address] [phone] Health Maintenance Due Date Last Done Comments [...] Medicaid [place] Medicare [place] Care Teams Import Customs Clearing Agent Relationship Specialty Start Date End Date Marleen Spain MD [address] [place] [address] [place] [address] PCP - General Internal Medicine 05/10/24
== END 2024-09-20 12:27 | disposition home or self-care (01) ==
LOC: HO.HUSH 11:28
PROVIDERS: PCP Internal Medicine; Visit Provider Nurse Practitioner Family
DX: Z13.9 Encounter for screening, unspecified (principal); R35.0 Frequency of micturition
CPT/HCPCS: 99213; G2211

== ENCOUNTER → 2024-09-20 11:27 | Outpatient (BNVA) | payer MEDICARE, MEDICAID, SELFPAY | PROVIDERS: PCP Internal Medicine; Visit Provider Nurse Practitioner Family | DX: R35.0 Frequency of micturition (principal) | CPT/HCPCS: 51798; 81003; 99212 ==

== ENCOUNTER 2024-09-26 12:15 | Outpatient (AMB) | payer MEDICARE, MEDICAID, SELFPAY ==
--- NOTE | 2024-09-26 07:42 | A.OFFVIS_ITS ---
Vital Signs 09/26/24 12:30 Height 5 ft 0.5 in Weight 121 lb 4.068 oz BMI 23.3 BP 120/68 Blood Pressure Location Rt brachial Position Sitting Pulse 60 Pulse Source Pulse Oximeter Pulse Oximetry (%) 97 Oxygen Delivery Method Room Air Intake Visit Reasons: T2DM Intake Note: Patient presents today for a follow up on Type 2 Diabetes Mellitus: Straightedge Man Language Delroyil Last Diabetic eye exam was on: DUE Last Podiatry exam was on: Does not see a Hydroelectric Plant Electrician Most recent HbA1c: 7.7%, 08/21/2024 at PCP Random Glucose- 161 mg/dL, Today Straightedge Man Required: Yes Straightedge Man Services: Straightedge Man Present Straightedge Man Name: Lizet #[id number] Accompanied by: Self / Same As Patient Allergies alogliptin Allergy (Unknown, Verified 09/20/24 13:58) contipation sitagliptin (Januvia) Allergy (Unknown, Verified 09/20/24 13:58) vomiting HPI Comments Details: 63 YO F who is seen in f/u for T2DM. She was last seen by myself 04/17/24 with an Hgb A1C 8.6%, 09/05/24 % Hgb A1C 04/17/23 8%, previous 7.1% Initially diagnosed with T2DM 20 yrs ago Was initially started on treatment with metformin. Was on Trulicity 0.75 mg weekly but she was losing too much weight due to poor appetite. Her weight has stabilized Current regime: Metformin 1000 mg BID Lantus 14 units Humalog breakfast 8 units lunch 14 units supper 6-8 units no recent lows Treats low with sugar She unfortunately did not bring in her dexcom today but reports her readings are in the 130 range in the am since increasing insulin. later in the day 150's, up to 200 after meals but decreases within several hours. Family history of T2DM in father and siblings . Has eyes checked yearly, last eye exam 07/2024 denies retinopathy goes every 4 months for glaucoma Denies neuropathy, ,does not see podiatry. + nephropathy, on LEIF. 05/2023 urine microalbumin: 5.0 eGFR 56 08/22/24 58 Has HLD, on statin. 05/2023: LDL 59 Denies CAD. Had ekg through pcp Has been seen by nutrition in the past and follows a balanced diet. She was seen by [facility] endocrinology as she was not able to get an appointment here for slightly elevated calcium and PTH. She reports she had a bone density test done and she was advised her vitamin-D was low and she has been started on 2000 IU use daily. DEXA done at [place] 08/19/2023 After multiple requests I was able to obtain the results of her dexa which are scanned in to her chart. AP spine -2.3 osteopenia Total hip -1.4 Fem neck -2.1 osteopenia 1/3 forearm -1.0 risk of hip fracture 1.6% major fracture 10% 09/14/23 calcium 9.8 albumin 4.5 ionzed calcium 5.2 pth 45 vit d 55.1 up from 24.2 08/17/23 08/22/24 calcium 10.5 with albumin 4.7 corrected 9.5 PFSH Medical History Anemia Atypical chest pain Low vitamin D level Hypercalcemia Hyperlipidemia, unspecified Essential hypertension Type 2 diabetes mellitus with unspecified complications Surgical History H/O colonoscopy History of esophagogastroduodenoscopy (EGD) Hx of cervical polypectomy Family History Mother No problems noted. Father Diabetes Brother Diabetes Sister Diabetes Social History Household Members: Family Household Members Other:: daughter Alcohol intake: current Alcohol intake frequency: does not drink Patient Tobacco Use Status: Never used Tobacco e-Cigarette/Vaping Use: Never Used Physical Exam Vital Signs: Last Vital Signs Pulse 60 09/26/24 12:30 BP 120/68 09/26/24 12:30 Pulse Ox 97 09/26/24 12:30 Oxygen Delivery Method Room Air 09/26/24 12:30 BMI result Body Mass Index 23.3 Results Reviewed Results Reviewed: Laboratory Tests 05/12/23 04/17/24 09/05/24 08:05 15:17 14:26 Calcium 10.2 Alkaline Phosphatase 49 Albumin 4.3 25-OH Vitamin D Total 54.4 PTH Intact 98.3 H Assessment & Plan Assessment & Plan (1) Type 2 diabetes mellitus with unspecified complications: Code(s): E11.8 - Type 2 diabetes mellitus with unspecified complications Category: Medical Plan: 63-year-old type 2 diabetic with nephropathy with improving glycemic control. Continue current regime. (2) Hypercalcemia: Code(s): E83.52 - Hypercalcemia Category: Medical Plan: She will be scheduled with for evaluation of ostepenia, hypercalcemia. Has had higher PTH secondary to lower vitamin D. in the past. When corrected in the past with vit d pth normalized Coding Level of Care Code Est Pt Level 4 (17675) Complex EM visit Add On G2211 Diagnoses Type 2 diabetes mellitus with unspecified complications E11.8 Hypercalcemia E83.52
[2024-09-26 12:30] VITALS: BP 120/68; PULSE 60; O2SAT 97; BMI 23.3
[2024-09-26 12:42] LABS: Glucose, Whole Blood 161 mg/dL (60-115)
--- OUTSIDE RECORDS SUMMARY | 2024-09-26 12:52 | XMS_ITS | Clinical Summary ---
Author Organization [employer] Address [address] [facility] 7t [place] [address] Care Team Providers Care Line Painting Machine Operator Name Role Phone Unavailable Primary Care [...] diabetes mellitus with diabetic nephropat hy 03/16/2022 Social History Tobacco Use Types Packs/Day Years [...] Description 11/29/2024 11:00 AM EDT Office Visit [place] [facility] [address] [place] [address] April Ziegler Health Maintenance Due Date Last [...] Cancer Screening 1988 HPV/Cotest 1988 Mammogram 1998 Dental X-Ray: Full Mouth 06/06/2023 021, 04/22/2016, 10/24/2007 COVID-19 Vaccine ( season) 2023 07/30/2021, 07/28/2021, 08/13/2020, Additional history exists Dental X-Ray: Bitewings 02/25/2024 02/24/20 23, 06/19/2021, 06/04/2020, Additional history exists Dental Oral Exam 11/06/2024 05/08/2024, 07/2022, 06/19/2021, Additional history exists Dental Prophylaxis 11/06/2024 05/08/2024, 0 09/13/2023, 02/23/2023, Additional history exists Influenza Vaccine (Season Ended) 2024 02/12/2021 Tobacco Screening 05/08/2025 05/08/2024 DTaP/Tdap/Td Vaccines (2 - Td or Tdap) 01/01/2032 12/31/2021 Pneumococcal Vaccine: 50+ Years Completed 12/31/2021 Zoster Vaccines Completed 06/16/2022, 05/30/2021 Meningococcal Vaccine Aged Out 07/15/2022 No harmeet lorena eligible based on patient's age to complete this topic Hepatitis A Vaccines Aged Out 08/07/2022 No long er eligible based on patient's age to complete this topic RSV Patients and Patients Aged 60 years or older Completed 04/21/2023 HIB Vaccines Aged Out No longer eligi [...] on patient's age to complete this topic Meningococcal B Vaccine Aged Out No l onger eligible based on patient's age to complete [...] Most Recently Relevant to Health Maintenance Insurance [facility] MEDICAID STAND ADULT
--- OUTSIDE RECORDS SUMMARY | 2024-09-26 12:52 | XMS_ITS | Clinical Summary ---
Author Organization [facility] Facility Address [address] [place] [address] Care Team Providers Care Pediatric Immunologist Name Role Phone Marleen Spain MD Primary [...] Upcoming Encounters Date Type Department Care Team ([facility] st Contact Info) Description 05/09/2025 2:00 PM EST Office Visit [facility] [address] [place] [phone] Dmitry Najera MD [address] [phone] Health Maintenance Due Date Last Done Comments [...] Medicaid [place] Medicare Medicaid [place] Care Teams Pediatric Immunologist Relationship Specialty Start Date End Date Marleen Spain MD [address] [place] [address] [place] [phone] PCP - General Internal Medicine 05/10/24
== END 2024-09-26 13:02 | disposition home or self-care (01) ==
LOC: HO.ENCR 12:16
PROVIDERS: PCP Internal Medicine; Visit Provider Nurse Practitioner Adult Health
DX: E11.8 Type 2 diabetes mellitus with unspecified complications (principal); E83.52 Hypercalcemia
CPT/HCPCS: 99214; G2211

== ENCOUNTER → 2024-09-26 12:15 | Outpatient (BNVA) | payer MEDICARE, MEDICAID, SELFPAY | PROVIDERS: PCP Internal Medicine; Visit Provider Nurse Practitioner Adult Health | DX: E11.21 Type 2 diabetes mellitus with diabetic nephropathy (principal); E83.52 Hypercalcemia; Z79.84 Long term (current) use of oral hypoglycemic drugs; Z83.3 Family history of diabetes mellitus | CPT/HCPCS: 82947; 99212 ==

== ENCOUNTER 2024-12-03 11:10 | Outpatient (AMB) | payer MEDICARE, MEDICAID, SELFPAY ==
--- OUTSIDE RECORDS SUMMARY | 2024-08-27 03:30 | XMS_ITS ---
Author Organization [facility] Address [address] [place] [phone] Support Name Relationship Address Phone KIERRA CONNER Emergency Contact [address] [place], [place] [phone] OVIDIO CONNER Guarantor Unknown [phone] Care Team Providers Care Record Systems Analyst Name Role Phone Marleen Spain Primary Care Provider UnavailAravind Wells [phone] REASON FOR VISIT screening Encounters Encounter Location Date Provider Diagnosis [facility] [place] [address] [place], [place] [phone] 08/27/2024 Aravind Prince Colon cancer scree etienne [...] Progress Notes * BROOKEJESSICA OVIDIO ADOB: [birth year] (63 yo F)Acc No.[id number]:08/27/2024 COLON WITH MAC Patient: OVIDIO RAYMOND Provider: Lorraine Prince MD :1960 A ge:63 Y S ex:Female Date:08/27/2024 Address:[address] [place], [place] [phone] Pcp:Marleen Spain Subjective: * Chief Complaints: * [...] 08/27/2024 Generated for Delbert ledezma/Otis/Stas on: 0 12/03/2024 01:52 PM EDT
--- NOTE | 2024-12-03 11:42 | A.OFFVIS_ITS ---
VS Expanded 12/03/24 11:43 Height 5 ft 0.5 in Weight 124 lb 5.451 oz BMI 23.9 Intake Visit Reasons: T2dm Allergies alogliptin Allergy (Unknown, Verified 09/20/24 13:58) contipation sitagliptin (Januvia) Allergy (Unknown, Verified 09/20/24 13:58) vomiting Nutrition Presentation Details: Pt presents for MNT f/u for T1DM the patient reports varying meals, sometimes has juices w sugar added other times no, fluctuation in amount of carbs per meal but no adjustments in prandial insulin Pt reports going for walks daily and may reduce amount of prandial insulin to prevent hypoglycemia 14 d bg average as per gluc sensor 173 mg/dl , 64% within limits, 27% high and 9% very high, no hypoglycemia food frequency fruits: 1-2/day fish: 2/wk dairy: 3-4 /day vegetable: 2-3/d starches: varies between starchy veg and starches Reports taking daily mvi BS Monitoring Most Recent Diabetes Results: Calcium, (8.4-10.2) 10.2 mg/dL 09/05/24 PFSH Medical History Anemia Atypical chest pain Low vitamin D level Hypercalcemia Hyperlipidemia, unspecified Essential hypertension Type 2 diabetes mellitus with unspecified complications Surgical History H/O colonoscopy History of esophagogastroduodenoscopy (EGD) Hx of cervical polypectomy Family History Mother No problems noted. Father Diabetes Brother Diabetes Sister Diabetes Social History Household Members: Family Household Members Other:: daughter Alcohol intake: current Alcohol intake frequency: does not drink Patient Tobacco Use Status: Never used Tobacco e-Cigarette/Vaping Use: Never Used Assessment & Plan Assessment & Plan (1) Type 2 diabetes mellitus with unspecified complications: Code(s): E11.8 - Type 2 diabetes mellitus with unspecified complications Category: Medical Plan: Review MUFA, vitamin D source sof foods and role of physical activity ? Used wt : 55kg (04/2023), 54 kg (06/19), 56kg(12/20) Est kcal as per MSJ: 1500 (40% carb, 30% fat/prot) Est fluid needs: 1450 ml/d (25 ml/kg bw) Rec fiber: increase to 8-10 g per day and gradually increase to 25 g/d or as tolerated Rec Na: < 2000 mg /d Educate patient on: (R= Reviewed, V = verbalizes understanding N/R= Needs review N/A= not applicable) * Food sources of carbohydrates and serving adequate serving sizes : R ,V * Difference between complex carbohydrates and simple carbohydrates, role of fiber: R ,V * Differences between fats (MUFA/PUFA/saturated fats, trans fats) and food sources of various fats: R * Food sources of sodium and salt and healthy modifications for heart health and kidney health: R * Vitamins and minerals: R V * How to interpret food labels: R, V * Healthy Plate method concept: R , V * Physical activity: benefits and precaution: R , V Patient Instructions: Continue following healthy plate method Continue choosing fiber rich foods (whole grains, seeds, nuts vegetables ) keep hydrated by having water with meals/snacks Coding Level of Care Code Nutr Indiv Subseq (34672) Diagnoses Type 2 diabetes mellitus with unspecified complications E11.8 Time Spent (min) 30
[2024-12-03 11:43] VITALS: BMI 23.9
--- OUTSIDE RECORDS SUMMARY | 2024-12-03 13:54 | XMS_ITS | Encounter Summary ---
Author Organization [employer] [facility] [employer] [facility] Address [address] [facility] 7t [place] [address] Care Team Providers Care Paper Novelty Maker Name Role Phone Unavailable Primary Care Provider [...] Care Team (Late st Contact Info) Description 12/27/2024 12:00 PM EDT Office Visit [facility] DENTAL [address] [place] [address] Christine Singer documented as of this encounter Visit Diagnoses Not on filedocumented in this encounter
--- OUTSIDE RECORDS SUMMARY | 2024-12-03 13:54 | XMS_ITS | Patient Health Record ---
Author Organization [facility] Address [address] [place] [phone] Support Name Relationship Address Phone DALILA KIERRA Emergency Contact [address] [place], [place] [phone] OVIDIO CONNER Guarantor Unknown [phone] Care Team Providers Care Home Aid Name Role Phone JoekimiMarleen Primary Care Provider Unavailab Aravind Barton Unavailable [phone] Allergies No Known Allergies Results Component Value Reference Range Notes Glucose, Whole Blood Reviewed date:08/27/2024 10:55:12 PM Interpretation: Performing Lab:[facility], [address] [place] [id number] Notes/Report: Glucose, Whole Blood 137 60-115 mg/dL METER # : [id number] Reason For Referral No Information Medications Medication [...] Status Risk Notes Problem Colon cancer screening (974301667) Colon cancer screening (Z12.11) Active confirmed Problem Pre-procedure evaluation check (944629875) Encounter for other preprocedural examination (Z01.818) Active confirmed Problem Anemia (335709873) Anemia (D64.9) Active confirmed Vital Signs Temperature 98.0 degrees Fahrenheit 04/25/2024 Blood pressure diastolic 00 mm Hg 04/25/2024 Height 60.5 in 04/25/2024 Blood pressure systolic 000 mm Hg 04/25/2024 Weight 127 lbs 04/25/2024 BMI 24.39 kg/m2 04/25/2024 Encounters Encounter Location Date Provider Diagnosis [facility] Outpatient [address] [place] [id number] 08/27/2024 Aravind Prince Colon cancer screeni ng Z12.11 ; Diverticulosis of sigmoid colon K57.30 and Internal hemorrhoids K64.8 [facility] [address] [place] [phone] 04/25/2024 Aravind Prince Colon cancer screeni ng Z12.11 ; Anemia D64.9 and Encounter for other preprocedural examination Z01.818 [facility] [address] [facility] [address] [place] [phone] 04/25/2024 Aravind Prince Assessments Encounter Date Diagnosis (ICD Code) Assessment Notes Treatment Notes Treatment Clinical Notes Section Notes 08/27/2024 Colon cancer screening (ICD-10 - Z12.11) 08/27/2024 Diverticulosis of sigmoid colon (ICD-10 - K57.30) 04/25/2024 Colon cancer screening (ICD-10 - Z12.11) [...] to keep you advised of her progress. 08/27/2024 Internal hemorrhoids (ICD-10 - K64.8) 04/25/2024 Encounter for other preprocedural examination (ICD-10 [...] 09/18/2013 IRON + IBC (FE) 11/06/2013 FERRITIN 11/06/2013 FERRITIN 02/07/2014 FERRITIN 09/18/2013 CBC w DIFF 11/06/2013 CBC w DIFF 02/07/2014 CBC w DIFF 09/18/2013 CELIAC PANEL #10 09/18/2013 Future Test Test Name Order Date COLONOSCOPY 09/18/2013 COLONOSCOPY 04/25/2024 Insurance Providers Payer Name Payer Address Payer Phone Subscriber Number Group Number Insured Name Patient Relationship to Insured Coverage Start Date Coverage End Date MEDICARE OF [place] [address] [place] [address] [id number] OVIDIO CONNER Self - patient is the insured MEDICAID OF [facility] [address] [place] [address] [id number] OVIDIO CONNER Self - patient is the insured Medical (General) History Medical History History ICD Code IDDM Denies ME,CVA,Lung disease,renal disease Hyperlipidemia Anemia--Hgb 11.6 and Ferriti n of 6 in 11/2012, and 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
--- OUTSIDE RECORDS SUMMARY | 2024-12-03 13:54 | XMS_ITS | Clinical Summary ---
Author Organization [employer] Address [address] [facility] 7t [place] [address] Care Team Providers Care Arborist Name Role Phone Unavailable Primary Care Provider [...] Description 12/27/2024 12:00 PM EDT Office Visit [facility] D[facility]AL [address] [place] [address] Christine Singer Health Maintenance Due Date Last Done Comments [...] X-Ray: Full Mouth 06/06/2023 021, 04/22/2016, 10/24/2007 Dental X-Ray: Bitewings 02/25/2024 02/24/20 23, 06/19/2021, 06/04/2020, Additional history exists Dental Oral Exam 11/06/2024 05/08/2024, 07/2022, 06/19/2021, Additional history exists Dental Prophylaxis 11/06/2024 05/08/2024, 0 09/13/2023, 02/23/2023, Additional history exists COVID-19 Vaccine ( season) 2024 07/30/2021, 07/28/2021, 08/13/2020, Additional history exists Influenza Vaccine (#1) 2024 02/12/2021 Tobacco Screening 05/08/2025 05/08/2024 DTaP/Tdap/Td [...] Most Recently Relevant to Health Maintenance Insurance [facility] MEDICAID STAND ADULT
--- OUTSIDE RECORDS SUMMARY | 2024-12-03 13:54 | XMS_ITS | Encounter Summary ---
Author Organization [employer] Address [address] [facility] 7t [place] [address] Care Team Providers Care Track Repairer Helper Name Role Phone Unavailable Primary Care Provider [...] Description 12/27/2024 12:00 PM EDT Office Visit [facility] DENTAL [address] [place] [address] Christine Singer documented as of this encounter Visit Diagnoses Not on filedocumented in this encounter
--- OUTSIDE RECORDS SUMMARY | 2024-12-03 13:54 | XMS_ITS | Encounter Summary ---
Author Organization [employer] Address [address] [facility] 7t [place] [address] Care Team Providers Care Grades 9 12 Tutor Name Role Phone Unavailable Primary Care Provider [...] Description 12/27/2024 12:00 PM EDT Office Visit [facility] DENTAL [address] [place] [address] Christine Singer documented as of this encounter Visit Diagnoses Not on filedocumented in this encounter
--- OUTSIDE RECORDS SUMMARY | 2024-12-03 13:54 | XMS_ITS | Clinical Summary ---
Author Organization [facility] Facility Address [address] [place] [address] Care Team Providers Care Field Aide Name Role Phone Marleen Spain MD Primary Care Provider Allergies Active Allergy Reactions Criticality Noted Date [...] [facility] [address] [place] [phone] Dmitry Najera MD [address] [phone] Health Maintenance Due Date Last Done Comments [...] Visual Foot Exam 03/16/2022 Influenza Vaccine (#1) 2024 Hepatitis B Vaccine Aged Out No longe r eligible based on patient's age to complete this topic Insurance Medicare Medicaid [place] Medicare Medicaid [place] Care Teams Field Aide Relationship Specialty Start Date End Date Marleen Spain MD [address] [place] [address] [place] [phone] PCP - General Internal Medicine 05/10/24
--- OUTSIDE RECORDS SUMMARY | 2024-12-03 13:54 | XMS_ITS | Encounter Summary ---
Author Organization [employer] Address [address] [facility] 7t [place] [address] Care Team Providers Care Preventive Maintenance Coordinator Name Role Phone Unavailable Primary Care Provider [...] Description 12/27/2024 12:00 PM EDT Office Visit [facility] DENTAL [address] [place] [address] Christine Singer documented as of this encounter Visit Diagnoses Not on filedocumented in this encounter
== END 2024-12-03 12:13 | disposition home or self-care (01) ==
LOC: HO.ENCR 11:11
PROVIDERS: PCP Internal Medicine; Visit Provider Dietitian, Registered
DX: E11.8 Type 2 diabetes mellitus with unspecified complications (principal)

== ENCOUNTER → 2024-12-03 11:10 | Outpatient (BNVA) | payer MEDICARE, MEDICAID, SELFPAY | PROVIDERS: PCP Internal Medicine; Visit Provider Dietitian, Registered | DX: E11.8 Type 2 diabetes mellitus with unspecified complications (principal); Z71.3 Dietary counseling and surveillance | CPT/HCPCS: 97803 ==

== ENCOUNTER 2024-12-19 12:27 | Outpatient (AMB) | payer MEDICARE, MEDICAID, SELFPAY ==
--- OUTSIDE RECORDS SUMMARY | 2024-08-27 03:30 | XMS_ITS ---
Author Organization [facility] Address [address] [place] [phone] Support Name Relationship Address Phone KIERRA CONNER Emergency Contact [address] [place], [place] [phone] OVIDIO CONNER Guarantor Unknown [phone] Care Team Providers Care Compliance Quality Performance Analyst Name Role Phone Marleen Spain Primary Care Provider UnavailAravind Wells [phone] REASON FOR VISIT screening Encounters Encounter Location Date Provider Diagnosis [facility] [place] [address] [place], [place] [phone] 08/27/2024 Aravind Prince Colon cancer scree etienne Z12.11 ; Diverticulosis of sigmoid colon K57.30 and Internal hemorrhoids K64.8 Assessments Encounter Date Diagnosis (ICD Code) Assessment Notes Treatment Notes Treatment Clinical Notes Section Notes 08/27/2024 Colon cancer screening (ICD-10 - Z12.11) 08/27/2024 Diverticulosis of sigmoid colon (ICD-10 - K57.30) 08/27/2024 Internal hemorrhoids (ICD-10 - K64.8) Plan Of Treatment No Information Progress Notes * BROOKEJESSICADILSHADJASPAL ADOB: [birth year] (64 yo F)Acc No.[id number]:08/27/2024 COLON WITH MAC Patient: OVIDIO RAYMOND Provider: Lorraine Prince MD :1960 A ge:63 Y S ex:Female Date:08/27/2024 Address:[address] [place], [place] [phone] Pcp:Marleen Spain Subjective: * Chief Complaints: * 1 . Screening. * Medical History: Objective: * Vitals: Assessment: * Assessment: 1. C olon cancer screening - Z12.11 (Primary) 2 . D iverticulosis of sigmoid colon - K57.30 3 . I nternal hemorrhoids - K64.8 Plan: * Treatment: * Procedure Codes: G 0121 COLOREC CNCR SCR;COLNSCPY NO HI RSK, 0529F INTRVL 3+YRS PTS CLNSCP DOCD, 0528F RCMND FLW-UP 10 YRS DOCD * * The named appointment provid er may or may not be the originator of this progress note, and it is not deemed complete until electronically signed by the appointment provider. Sign off status: Pending * Provider: Lorraine Prince MD Date: 0 08/27/2024 Generated for Delbert ledezma/Otis/Stas on: 0 12/19/2024 03:00 PM EDT
--- NOTE | 2024-12-19 12:41 | A.OFFVIS_ITS ---
Intake Intake Visit Reasons: 60 min Film Touch Up Inspector Required: Yes Film Touch Up Inspector Language: Tamil Film Touch Up Inspector Name: Jessica Max Accompanied by: Self / Same As Patient Allergies alogliptin Allergy (Unknown, Verified 09/20/24 13:58) contipation sitagliptin (Januvia) Allergy (Unknown, Verified 09/20/24 13:58) vomiting HPI Comprehensive Diabetes Asmnt Most Recent Diabetes Results: 2 Microalb/Creat Ratio, (<30) 4.4 ug/mg cr 05/12/23 Cholesterol, (<200) 119 mg/dL 05/12/23 HDL Cholesterol, (>40) 48 mg/dL 05/12/23 Triglycerides, (<150) 63 mg/dL 05/12/23 Creatinine, (0.5-1.4) 0.96 mg/dL 04/17/24 BUN, (9-16) 20 mg/dL H 04/17/24 Sodium, (135-145) 141 mmol/L 04/17/24 Potassium, (3.3-5.1) 3.7 mmol/L 04/17/24 Chloride, (96-108) 108 mmol/L 04/17/24 Carbon Dioxide, (22-29) 23 mmol/L 04/17/24 Calcium, (8.4-10.2) 10.2 mg/dL 09/05/24 AST, (5-31) 16 U/L 05/12/23 ALT, (0-31) 10 U/L 05/12/23 Total Protein, (6.5-8.0) 7.2 g/dL 05/12/23 Albumin, (3.5-5.0) 4.3 g/dL 04/17/24 [facility] Medical History Anemia Atypical chest pain Low vitamin D level Hypercalcemia Hyperlipidemia, unspecified Essential hypertension Type 2 diabetes mellitus with unspecified complications Surgical History H/O colonoscopy History of esophagogastroduodenoscopy (EGD) Hx of cervical polypectomy Family History Mother No problems noted. Father Diabetes Brother Diabetes Sister Diabetes Social History Household Members: Family Household Members Other:: daughter Alcohol intake: current Alcohol intake frequency: does not drink Patient Tobacco Use Status: Never used Tobacco e-Cigarette/Vaping Use: Never Used Assessment & Plan Assessment & Plan (1) Type 2 diabetes mellitus with unspecified complications: Code(s): E11.8 - Type 2 diabetes mellitus with unspecified complications Plan: Personal Continuous Glucose Monitor: Patients CGM information reviewed, Pt uses Dexcom G6 with reader Patient only has 3 days worth of data, she reports she has been on vacation and did not have a sensor Reviewed with patient insulin action of Humalog, patient takes 8 units for breakfast 14 units for lunch, and 8 units for supper. Patient also reports eating high carb snacks. Reviewed with patient the importance of having consistent portions of carbohydrates at each meal when using fixed dose of insulin. Also discussed if patient is eating snacks that are greater than 20 g of carbohydrate we may need to cover her snacks with Humalog as well Patient is interested in upgrading from Dexcom G6 to Dexcom G7, message sent to provider to send prescription for Dexcom G7 reader and Dexcom G7 sensors Patient will follow-up with asthma educator when she receives new Dexcom equipment Instructed patient before she eats because she is concerned about having hypoglycemia to watch trend arrow Reviewed how to interpret trend arrows Reminded patient that to check finger sticks if symptoms do not match sensor reading. Discussed lag time between finger stick and sensor data.? Patient able to insert sensor independently at home without issue.? Portions of this note were created using voice recognition software, please excuse any words or phrases that may have been misinterpreted. Coding Level of Care Code Est Pt Level 1 (44309) Diagnoses Type 2 diabetes mellitus with unspecified complications E11.8
--- OUTSIDE RECORDS SUMMARY | 2024-12-19 15:01 | XMS_ITS | Encounter Summary ---
Author Organization [employer] Address [address] [facility] [address]t [place] [address] Care Team Providers Care Printed Circuit Photographer Name Role Phone Unavailable Primary Care Provider [...] Description 12/27/2024 12:00 PM EDT Office Visit [facility] DENTAL [address] [place] [address] Christine Singer documented as of this encounter Visit Diagnoses Not on filedocumented in this encounter
--- OUTSIDE RECORDS SUMMARY | 2024-12-19 15:01 | XMS_ITS | Patient Health Record ---
Author Organization [facility] Address [address] [place] [id number] Support Name Relationship Address Phone DALILA KIERRA Emergency Contact [address] [place], [place] [id number] OVIDIO CONNER Guarantor Unknown [phone] Care Team Providers Care Power System Electrical Engineer Name Role Phone JoekimiMarleen Primary Care Provider Unavailab Aravind Barton Unavailable [phone] Allergies No Known Allergies Results Component Value Reference Range Notes Glucose, Whole Blood Reviewed date:08/27/2024 10:55:12 PM Interpretation: Performing Lab:[facility], [address] [place] [phone] Notes/Report: Glucose, Whole Blood 137 60-115 mg/dL METER # : [id number] Reason For Referral No Information Medications Medication [...] Status Risk Notes Problem Colon cancer screening (371788214) Colon cancer screening (Z12.11) Active confirmed Problem Pre-procedure evaluation check (884672148) Encounter for other preprocedural examination (Z01.818) Active confirmed Problem Anemia (643621374) Anemia (D64.9) Active confirmed Vital Signs Temperature 98.0 degrees Fahrenheit 04/25/2024 Blood pressure diastolic 00 mm Hg 04/25/2024 Height 60.5 in 04/25/2024 Blood pressure systolic 000 mm Hg 04/25/2024 Weight 127 lbs 04/25/2024 BMI 24.39 kg/m2 04/25/2024 Encounters Encounter Location Date Provider Diagnosis [facility] Outpatient [address] [place] [id number] 08/27/2024 Aravind Prince Colon cancer screeni ng Z12.11 ; Diverticulosis of sigmoid colon K57.30 and Internal hemorrhoids K64.8 [facility] [address] [place] [phone] 04/25/2024 Aravind Prince Colon cancer screeni ng Z12.11 ; Anemia D64.9 and Encounter for other preprocedural examination Z01.818 [facility] [address] [facility] [address] [place] [phone] 04/25/2024 Aravind Prince Assessments Encounter Date Diagnosis [...] OF [place] [address] [place] [address] [phone] [id number] OVIDIO CONNER Self - patient is the insured MEDICAID OF [facility] [address] [place] [address] [id number] OVIDIO CONNER Self - patient is the insured Medical (General) History Medical History History ICD Code IDDM Denies NH,CVA,Lung disease,renal disease Hyperlipidemia Anemia--Hgb 11.6 and Ferriti n of 6 in 11/2012, and 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
--- OUTSIDE RECORDS SUMMARY | 2024-12-19 15:01 | XMS_ITS | Encounter Summary ---
Author Organization [employer] Address [address] [facility] 7t [place] [address] Care Team Providers Care Associate Professor Of Literacy Name Role Phone Unavailable Primary Care Provider [...] Description 12/27/2024 12:00 PM EDT Office Visit [facility] DENT[facility] [address] [place] [address] Christine Singer documented as of this encounter Visit Diagnoses Not on filedocumented in this encounter
--- OUTSIDE RECORDS SUMMARY | 2024-12-19 15:01 | XMS_ITS | Encounter Summary ---
Author Organization [employer] Address [address] [facility] 7t [place] [address] Care Team Providers Care Leather Stripping Machine Operator Name Role Phone Unavailable Primary [...] Description 12/27/2024 12:00 PM EDT Office Visit [facility] DENT[facility] [address] [place] [address] Christine Singer documented as of this encounter Visit Diagnoses Not on filedocumented in this encounter
--- OUTSIDE RECORDS SUMMARY | 2024-12-19 15:01 | XMS_ITS | Clinical Summary ---
Author Organization [facility] Address [address] [place] [id number] Care Team Providers Care Product Safety Manager Name Role Phone Marleen Spain MD Primary [...] Visit [facility] [address] [place] [phone] Dmitry Najera MD [address] [phone] Health Maintenance Due Date Last Done Comments [...] Medicaid [place] Care Teams Product Safety Manager Relationship Specialty Start Date End Date Marleen Spain MD [address] [place] [address] [place] [phone] PCP - General Internal Medicine 05/10/24
--- OUTSIDE RECORDS SUMMARY | 2024-12-19 15:01 | XMS_ITS | Clinical Summary ---
Author Organization [employer] Address [address] [facility] 7t [place] [address] Care Team Providers Care Developer Advocate Name Role Phone Unavailable Primary Care Provider [...] Upcoming Encounters Date Type Department Care Team (Shadia st Contact Info) Description 12/27/2024 12:00 PM EDT Office Visit [facility] D[facility] [address] [place] [address] Christine Singer Health Maintenance Due Date Last Done Comments CT Colonography 1958 Colonoscopy 1958 Colorectal Cancer Screening 1958 Depression Screening 1958 Diabetes: Hemoglobin A1C 1958 FIT DNA/Cologuard 1958 FIT 1958 FOBT 1958 Lipid Panel 1958 SDOH Screening 1958 Sigmoidoscopy 1958 Diabetes: Foot Exam 1968 Eye Exam 1968 Alcohol/Substance Use Screening 1970 Hepatitis C Screening 1976 Mammogram 1998 Dental X-Ray: Full Mouth 06/06/2023 [...] Most Recently Relevant to Health Maintenance Insurance [facility] MEDICAID STAND ADULT DENTAL - N FULL (MEDICAID)
--- OUTSIDE RECORDS SUMMARY | 2024-12-19 15:01 | XMS_ITS | Encounter Summary ---
Author Organization [employer] Address [address] [facility] 7t [place] [address] Care Team Providers Care Child Development Professor Name Role Phone Unavailable Primary Care Provider [...] Description 12/27/2024 12:00 PM EDT Office Visit [facility] DENTAL [address] [place] [address] Christine Singer documented as of this encounter Visit Diagnoses Not on filedocumented in this encounter
== END 2024-12-19 13:22 | disposition home or self-care (01) ==
PROVIDERS: PCP Internal Medicine; Visit Provider Registered Nurse Diabetes Educator
DX: E11.8 Type 2 diabetes mellitus with unspecified complications (principal)

== ENCOUNTER → 2024-12-19 12:27 | Outpatient (BNVA) | payer MEDICARE, MEDICAID, SELFPAY | PROVIDERS: PCP Internal Medicine; Visit Provider Registered Nurse Diabetes Educator | DX: E11.8 Type 2 diabetes mellitus with unspecified complications (principal); Z79.4 Long term (current) use of insulin | CPT/HCPCS: 99211 ==

== ENCOUNTER 2025-01-03 09:19 | Outpatient (AMB) | payer MEDICARE, MEDICAID, SELFPAY ==
[2025-01-03 09:29] VITALS: BP 120/62; PULSE 58; O2SAT 100; BMI 23.9
--- NOTE | 2025-01-03 09:29 | A.OFFVIS_ITS ---
Vital Signs 01/03/25 09:29 Height 5 ft 0.5 in Weight 124 lb 5.451 oz BMI 23.9 BP 120/62 Blood Pressure Location Lt brachial Position Sitting Pulse 58 Pulse Source Pulse Oximeter Pulse Oximetry (%) 100 Oxygen Delivery Method Room Air Intake Visit Reasons: [address] goodman reason osteopenia and dm Intake Note: Patient present today to follow up on Type 2 Diabetes Mellitus and Osteopenia. Language Tamil Last Diabetic Eye exam:?last week with [facility] Last Podiatry Visit: Does not see a Engagement Mgr Random Glucose: 118 mg/dl Hgb A1C: 7.7 Textile Broker Required: Yes Textile Broker Language: Tamil Textile Broker Services: Textile Broker Present Textile Broker Name: Ifrah [id number] Information Interpreted: non-clinical & clinical Accompanied by: Self / Same As Patient Allergies alogliptin Allergy (Unknown, Verified 01/03/25 09:38) contipation sitagliptin (Januvia) Allergy (Unknown, Verified 01/03/25 09:38) vomiting Medication List - Last Reconciled 01/03/25 by Aravind Goodman MD Basaglar KwikPen U-100 Insulin (insulin glargine) 14-16 units subcutaneously every evening; 30 days NS blood sugar diagnostic (FreeStyle Test strips) As directed blood-glucose sensor (Dexcom G7 Sensor device) As directed change every 10 days blood-glucose,sales and marketing assistant,cont (Dexcom G7 Concrete Batcher) As directed cyanocobalamin (vitamin B-12) 1,000 mcg PO DAILY insulin lispro (Humalog KwikPen (U-100) Insulin) Breakfast 6 units, lunch 13 units, supper 8 units subcutaneously 3 times a day; lancets (FreeStyle Lancets) As directed 3 times a day latanoprost 0.005% 1 drp ophthalmic (eye) DAILY losartan 50 mg PO DAILY metformin 1,000 mg PO BID multivitamin 1 tab PO DAILY pen needle, diabetic (BD Chanell 2nd Gen Pen Needle) As directed once a day rosuvastatin 40 mg PO DAILY sennosides (senna) 8.6 mg PO BEDTIME PRN HPI Comments Details: 64 YO F who is seen in f/u for T2DM. She was last seen by [facility] NP on 09/26/2024 Initially diagnosed with T2DM 20 yrs ago Was initially started on treatment with metformin. Was on Trulicity 0.75 mg weekly but she was losing too much weight due to poor appetite. Her weight has stabilized Current regime: Metformin 1000 mg BID Lantus 14 units Humalog breakfast 8 units lunch 14 units supper 6-8 units once a mo Treats low with sugar Dexcom download shows she is using the sensor 78% of the time. Average glucose is 181 with G mi of 7.6% standard deviation of 61 and coefficient of variation 33.8%. 57% range with 43% hyperglycemia and no hypoglycemia. Pattern shows declining blood sugars overnight with increases post-breakfast and post-mid afternoon Family history of T2DM in father and siblings . Has eyes checked yearly, last eye exam last wk denies retinopathy goes every 4 months for glaucoma Denies neuropathy, ,does not see podiatry. + nephropathy, on LEIF. 05/2023 urine microalbumin: 5.0 eGFR 56 08/22/24 56 Has HLD, on statin. 05/2023: LDL 59 Denies CAD. Had ekg through pcp Has been seen by nutrition in the past and follows a balanced diet. She was seen by [facility] endocrinology as she was not able to get an appointment here for slightly elevated calcium and PTH. She reports she had a bone density test done and she was advised her vitamin-D was low and she has been started on 2000 IU use daily. DEXA done at [facility] 08/19/2023 After multiple requests I was able to obtain the results of her dexa which are scanned in to her chart. AP spine -2.3 osteopenia Total hip -1.4 Fem neck -2.1 osteopenia 1/3 forearm -1.0 risk of hip fracture 1.6% major fracture 10% 09/14/23 calcium 9.8 albumin 4.5 ionzed calcium 5.2 pth 45 vit d 55.1 up from 24.2 08/17/23 08/22/24 calcium 10.5 with albumin 4.7 corrected 9.5 [facility] Medical History Anemia Atypical chest pain Low vitamin D level Hypercalcemia Hyperlipidemia, unspecified Essential hypertension Type 2 diabetes mellitus with unspecified complications Surgical History H/O colonoscopy History of esophagogastroduodenoscopy (EGD) Hx of cervical polypectomy Family History Mother No problems noted. Father Diabetes Brother Diabetes Sister Diabetes Social History Household Members: Family Household Members Other:: daughter Alcohol intake: current Alcohol intake frequency: does not drink Patient Tobacco Use Status: Never used Tobacco e-Cigarette/Vaping Use: Never Used Physical Exam Vital Signs: Last Vital Signs Pulse 58 01/03/25 09:29 BP 120/62 01/03/25 09:29 Pulse Ox 100 01/03/25 09:29 Oxygen Delivery Method Room Air 01/03/25 09:29 BMI result Body Mass Index 23.9 Const Other: Absence of Cushingoid features. Absence of acromegalic features. Neck exam reveals nl size thyroid about 15 gms. No thyroid nodules palpable. Heart S1 S2, Reg R/R. No M/R G. Skin exam reveals absence of vitiligo or acanthosis nigricans. Visual exam of foot performed. No ulcerations or open lesions. No inter digit maceration or fissuring. No onychomycosis, no callouses. Sensation intact to monofilament exam. Vibratory sensation is normal with 128 Hz tuning fork. Results AMB Hemoglobin A1c AMB Hemoglobin A1c 7.7 % Last Edit by Suzanne Keller CMA on 01/03/25 09:53 Results Reviewed Results Reviewed: Laboratory Last Values Glucose (Clinic) 118 mg/dL (60-115) H 01/03/25 09:43 Hgb A1c (Clinic) 7.7 % (4.0-6.0) H 01/03/25 09:48 Assessment & Plan Assessment & Plan (1) Type 2 diabetes mellitus with unspecified complications: Code(s): E11.8 - Type 2 diabetes mellitus with unspecified complications Category: Medical Plan: This is a 62-year-old female with a history of diabetes being treated with basal- insulin and metformin with good improving glycemic control and no known microvascular or macrovascular complications. The plan is increase the Humalog to 12 units before before before breakfast and decrease Lantus to 12 units. . (2) Hypercalcemia: Code(s): E83.52 - Hypercalcemia Category: Medical Plan: Elevated PTH possibly due to secondary hyperparathyroidism with a slightly elevated calcium suggesting a component of primary hyperparathyroidism. Other possibility may be spurious lab error measurement. We will recheck calcium, albumin, PTH, 25 hydroxy vitamin-D BR L lab ( [facility]) to verify. Further workup based on the above. Either way she has normal renal US and DEXA did not show osteoporosis Orders: Orders AMB Hemoglobin A1c Today E11.8 - Type 2 diabetes mellitus with unspecified complications Calcium Today E83.52 - Hypercalcemia Parathyroid Hormone Intact Today E83.52 - Hypercalcemia Vitamin D 25-OH Total Today E83.52 - Hypercalcemia Albumin Level Today E83.52 - Hypercalcemia Coding Level of Care Code Est Pt Level 4 (25667) Complex EM visit Add On G2211 Diagnoses Type 2 diabetes mellitus with unspecified complications E11.8 Hypercalcemia E83.52
[2025-01-03 09:48] LABS: Glucose, Whole Blood 118 mg/dL (60-115)
== END 2025-01-03 11:01 | disposition home or self-care (01) ==
PROVIDERS: PCP Internal Medicine; Visit Provider Internal Medicine Endocrinology, Diabetes & Metabolism
DX: E11.8 Type 2 diabetes mellitus with unspecified complications (principal); E83.52 Hypercalcemia
CPT/HCPCS: 99214; G2211

== ENCOUNTER → 2025-01-03 09:19 | Outpatient (BNVA) | payer MEDICARE, MEDICAID, SELFPAY | PROVIDERS: PCP Internal Medicine; Visit Provider Internal Medicine Endocrinology, Diabetes & Metabolism | DX: E11.8 Type 2 diabetes mellitus with unspecified complications (principal); E83.52 Hypercalcemia; Z79.4 Long term (current) use of insulin | CPT/HCPCS: 82947; 83036; 99212 ==

== ENCOUNTER 2025-03-06 10:55 | Outpatient (AMB) | payer MEDICARE, MEDICAID, SELFPAY ==
--- NOTE | 2025-03-06 11:19 | MHC.AMDMED ---
Intake Intake Visit Reasons: 60 Salvager Helper Required: Yes Salvager Helper Language: Tamil Salvager Helper Name: Jessica Max Accompanied by: Self / Same As Patient Allergies alogliptin Allergy (Unknown, Verified 01/03/25 09:38) contipation sitagliptin (Januvia) Allergy (Unknown, Verified 01/03/25 09:38) vomiting HPI Comprehensive Diabetes Asmnt Most Recent Diabetes Results: Microalb/Creat Ratio, (<30) 4.4 ug/mg cr 05/12/23 Cholesterol, (<200) 119 mg/dL 05/12/23 HDL Cholesterol, (>40) 48 mg/dL 05/12/23 Triglycerides, (<150) 63 mg/dL 05/12/23 Creatinine, (0.5-1.4) 0.96 mg/dL 04/17/24 BUN, (9-16) 20 mg/dL H 04/17/24 Sodium, (135-145) 141 mmol/L 04/17/24 Potassium, (3.3-5.1) 3.7 mmol/L 04/17/24 Chloride, (96-108) 108 mmol/L 04/17/24 Carbon Dioxide, (22-29) 23 mmol/L 04/17/24 Calcium, (8.4-10.2) 10.2 mg/dL 09/05/24 AST, (5-31) 16 U/L 05/12/23 ALT, (0-31) 10 U/L 05/12/23 Total Protein, (6.5-8.0) 7.2 g/dL 05/12/23 Albumin, (3.5-5.0) 4.3 g/dL 04/17/24 [facility] Medical History Anemia Atypical chest pain Low vitamin D level Hypercalcemia Hyperlipidemia, unspecified Essential hypertension Type 2 diabetes mellitus with unspecified complications Surgical History H/O colonoscopy History of esophagogastroduodenoscopy (EGD) Hx of cervical polypectomy Family History Mother No problems noted. Father Diabetes Brother Diabetes Sister Diabetes Social History Household Members: Family Household Members Other:: daughter Alcohol intake: current Alcohol intake frequency: does not drink Patient Tobacco Use Status: Never used Tobacco e-Cigarette/Vaping Use: Never Used Assessment & Plan Assessment & Plan (1) Type 2 diabetes mellitus with unspecified complications: Code(s): E11.8 - Type 2 diabetes mellitus with unspecified complications Plan: Patient at visit to transition from Dexcom G6 to Dexcom G7 CGM is the reading of glucose in the interstitial fluid not actual blood glucose, finger sticks are still necessary when Pt's symptom?s do not match sensor reading and if sensors prompts Pt to do a fingerstick Instructed patient sensors water proof you can shower, or swim do not submerge sensor in water for over 30 minutes Is sensor falls off cannot put back in you need to replace sensor, customer service number given to patient for sensor replacement Patient reports she would prefer to wear glucose sensor in her abdomen rather than the back of her Sensor placed on the right side of abdomen Patient left visit with sensor in warmup Patient has glucose pattern of hyperglycemia starting around 5pm lasting through 01:00am. Patient reports taking Basaglar 12 units daily Humalog 12 units before breakfast, 14 units before lunch, and 6-8 units at supper She also has been having late night snack around 11:00 when she goes to sleep to keep her glucose from dropping overnight. Patient agreed for bed and drop Lantus to 10 units daily Patient agreed to plan Instructed patient if she recognizes a pattern of hypoglycemia to contact clinical trial educator or provider Instructed patient the importance of having blood glucometer for backup testing if needed Reviewed delay of CGM from fingersticks Reminded Pt that if symptoms do not match sensor still needs to check fingersticks. Portions of this note were created using voice recognition software, please excuse any words or phrases that may have been misinterpreted. Coding Level of Care Code Est Pt Level 1 (21949) Diagnoses Type 2 diabetes mellitus with unspecified complications E11.8
== END 2025-03-06 11:34 | disposition home or self-care (01) ==
PROVIDERS: PCP Internal Medicine; Visit Provider Registered Nurse Diabetes Educator
DX: E11.8 Type 2 diabetes mellitus with unspecified complications (principal)

== ENCOUNTER → 2025-03-06 10:55 | Outpatient (BNVA) | payer MEDICARE, MEDICAID, SELFPAY | PROVIDERS: PCP Internal Medicine; Visit Provider Registered Nurse Diabetes Educator | DX: E11.65 Type 2 diabetes mellitus with hyperglycemia (principal) | CPT/HCPCS: 99211 ==

== ENCOUNTER 2025-03-12 10:47 | Outpatient (REF) | payer MEDICARE, MEDICAID, SELFPAY ==
--- OUTSIDE RECORDS SUMMARY | 2024-08-27 02:30 | XMS_ITS ---
Author Organization [facility] Address [address] [place] [phone] Support Name Relationship Address Phone KIERRA CONNER Emergency Contact 42 03[address] [place], [place] [phone] OVIDIO CONNER Guarantor Unknown [phone] Care Team Providers Care Transition Mgr Rn Name Role Phone Marleen Spain Primary Care Provider UnavailAravind Wells [phone] REASON FOR VISIT screening Encounters Encounter Location Date Provider Diagnosis [facility] Out[facility] [address] [place] [phone] 08/27/2024 Aravind Prince Colon cancer scree etienne Z12.11 ; Diverticulosis of sigmoid colon K57.30 and Internal hemorrhoids K64.8 Assessments Encounter Date Diagnosis (ICD Code) Assessment Notes Treatment Notes Treatment Clinical Notes Section Notes 08/27/2024 Colon cancer screening (ICD-10 - Z12.11) 08/27/2024 Diverticulosis of sigmoid colon (ICD-10 - K57.30) 08/27/2024 Internal hemorrhoids (ICD-10 - K64.8) Plan Of Treatment No Information Progress Notes * BROOKEJESSICA OVIDIO ADOB: [birth year] (64 yo F)Acc No.[id number]:08/27/2024 COLON WITH MAC Patient: OVIDIO RAYMOND Provider: Lorraine Prince MD :1960 A ge:63 Y S ex:Female Date:08/27/2024 Address:[address] [place], [place] [phone] Pcp:Marleen Spain Subjective: * Chief Complaints: * S creening Assessment: * Assessment: 1. C olon cancer screening - Z12.11 (Primary) 2 . D iverticulosis of sigmoid colon - K57.30 3 . I nternal hemorrhoids - K64.8 Plan: * Procedure Codes: G 0121 COLOREC CNCR SCR;COLNSCPY NO HI [id number] INTRVL 3+YRS PTS CLNSCP [id number] RCMND FLW-UP 10 YRS DOCD Billing Information: * Procedure Codes: G0121 COLOREC CNCR SCR;COLNSCPY NO HI RSK. 0529F INTRVL 3+YRS PTS CLNSCP DOCD. 0528F RCMND FLW-UP 10 YRS DOCD. * The named appointment provid er may or may not be the originator of this progress note, and it is not deemed complete until electronically signed by the appointment provider. Sign off status: Pending * Provider: Lorraine Prince MD Date: 0 08/27/2024 Generated for Delbert ledezma/Otis/Stas on: 1 05/14/2024 01:56 PM EST
--- NOTE | ~2025-03-12 | XR_ITS ---
EXAMINATION: XR SHOULDER, LEFT CLINICAL INFORMATION: M25.519 - Pain in unspecified shoulder COMPARISON: None available. TECHNIQUE: Three views of the left shoulder. FINDINGS: Small marginal osteophyte is visible in the medial humeral head. Marginal osteophyte is also visible at the superior glenoid. AC joint is intact. Glenohumeral joint is intact. There is no soft tissue calcification. XR/XR shoulder LT min 2V IMPRESSION: Mild degenerative changes of the glenohumeral joint. Electronically signed by: Maximilian Willard MD 03/12/2025 11:26 AM GEORGE OLVERA
--- OUTSIDE RECORDS SUMMARY | 2025-03-13 13:57 | XMS_ITS | Encounter Summary ---
Author Organization [employer] Address [address] [facility] 7t [place] [address] Care Team Providers Care Dietary Internship Name Role Phone Unavailable Primary Care Provider [...] Description 07/03/2025 12:00 PM EDT Office Visit [place] [facility] DENTAL [address] [place] [address] Christine Singer documented as of this encounter Visit Diagnoses Not on filedocumented in this encounter
--- OUTSIDE RECORDS SUMMARY | 2025-03-13 13:57 | XMS_ITS | Patient Health Record ---
Author Organization [facility] Address [address] [place] [address] Support Name Relationship Address Phone KIERRA CONNER Emergency Contact [address] [place], [place] [id number] OVIDIO CONNER Guarantor Unknown [phone] Care Team Providers Care Relations Director Name Role Phone Joekimi Marleen Primary Care Provider UnavailAravind Wells Unavailable [phone] Allergies No Known Allergies Results Component Value Reference Range Flag Notes Glucose, Whole Blood Reviewed date:08/27/2024 10:55:12 PM Interpretation: Performing Lab:[facility], [address] [place] [phone] Notes/Report: Glucose, Whole Blood 137 60-115 mg/dL H SC TER #: [id number] Reason For Referral No Information Medications Medication [...] as need ed Orally every 6 hrs Not-Taking/[place] N Senokot S 8.6-50 MG Tablet 1 [...] Notes: Nonsmoker; no alcohol. Came here from [facility] in 2006 Nonsmoker; no alcohol. Came here from [facility] in 2006 Nonsmoker; no alcohol. Came here from [facility] in 2006 Problems Problem Type SNOMED Code ICD Code Onset Dates Problem Status W/U Status Risk Notes Problem Colon cancer screening (827263050) Colon cancer screening (Z12.11) Active confirmed Problem Pre-procedure evaluation check (569566469) Encounter for other preprocedural examination (Z01.818) Active confirmed Problem Anemia (954220069) Anemia (D64.9) Active confirmed Vital Signs Temperature 98.0 degrees Fahrenheit 04/25/2024 Blood pressure diastolic 00 mm Hg 04/25/2024 Height 60.5 in 04/25/2024 Blood pressure systolic 000 mm Hg 04/25/2024 Weight 127 lbs 04/25/2024 BMI 24.39 kg/m2 04/25/2024 Encounters Encounter Location Date Provider Diagnosis [facility] Outpatient [address] [place], [place] [id number] 08/27/2024 Aravind Prince Colon cancer screeni ng Z12.11 ; Diverticulosis of sigmoid colon K57.30 and Internal hemorrhoids K64.8 [facility] [address] [place] [address] 04/25/2024 Aravind Prince Colon cancer screeni ng Z12.11 ; Anemia D64.9 and Encounter for other preprocedural examination Z01.818 [facility] [address] [place] [address] 04/25/2024 Aravind Prince Assessments Encounter Date Diagnosis [...] Start Date Coverage End Date MEDICARE OF [place] [address] HU[place] HAGER [address] [id number] OVIDIO CONNER Self - patient is the insured MEDICAID OF [facility] [address] [place] [id number] OVIDIO CONNER Self - patient is the [...]
--- OUTSIDE RECORDS SUMMARY | 2025-03-13 13:57 | XMS_ITS | Encounter Summary ---
Author Organization [employer] [facility] Address [address] [facility] 7t [place] [address] Care Team Providers Care Industrial Services Worker Name Role Phone Unavailable Primary Care Provider [...] Description 07/03/2025 12:00 PM EDT Office Visit [place] [facility] D[facility] [address] [place] [address] Christine Singer documented as of this encounter Visit Diagnoses Not on filedocumented in this encounter
--- OUTSIDE RECORDS SUMMARY | 2025-03-13 13:57 | XMS_ITS | Encounter Summary ---
Author Organization [employer] Address [address] [facility] 7t [place] [address] Care Team Providers Care Inventory Technician Name Role Phone Unavailable Primary Care [...] Description 07/03/2025 12:00 PM EDT Office Visit [place] [facility] D[facility] [address] [place] [address] Christine Singer documented as of this encounter Visit Diagnoses Not on filedocumented in this encounter
--- OUTSIDE RECORDS SUMMARY | 2025-03-13 13:57 | XMS_ITS | Encounter Summary ---
Author Organization [facility] Address [address] [facility] 7t [place] [address] Care Team Providers Care Factory Focus Technician Name Role Phone Unavailable Primary Care [...] Description 07/03/2025 12:00 PM EDT Office Visit [place] [facility] D[facility] [address] [place] [address] Christine Singer documented as of this encounter Visit Diagnoses Not on filedocumented in this encounter
--- OUTSIDE RECORDS SUMMARY | 2025-03-13 13:57 | XMS_ITS | Clinical Summary ---
Author Organization [employer] Address [address] [facility] 7t [place] [address] Care Team Providers Care Neon Glass Bender Name Role Phone Unavailable Primary Care Provider [...] 12/27/2024 12:00 PM EDT Office Visit [place] [facility] D[facility]AL [address] [place] [address] Christine Singer Accretions on teeth (Primary Dx); [...] 12:00 PM EDT Office Visit [facility] DENTAL [address] [place] [address] Christine Singer Health Maintenance Due Date Last [...]
== END 2025-03-12 10:48 | disposition home or self-care (01) ==
LOC: HO.HOSX 10:47
PROVIDERS: Visit Provider Physician Assistant
DX: M75.102 Unspecified rotator cuff tear or rupture of left shoulder, not specified as traumatic (principal)
CPT/HCPCS: 73030

== ENCOUNTER 2025-03-12 11:01 | Outpatient (AMB) | payer MEDICARE, MEDICAID, SELFPAY ==
--- OUTSIDE RECORDS SUMMARY | 2024-08-27 02:30 | XMS_ITS ---
Author Organization [facility] Address [address] [place] [phone] Support Name Relationship Address Phone KIERRA CONNER Emergency Contact 42 03[address] [place], [place] [phone] OVIDIO CONNER Guarantor Unknown [phone] Care Team Providers Care Seed And Fertilizer Specialist Name Role Phone Marleen Spain Primary Care Provider UnavailAravind Wells [phone] REASON FOR VISIT screening Encounters Encounter Location Date Provider Diagnosis [facility] Outpatient [address] [place] [phone] 08/27/2024 Aravind Prince Colon cancer scree etienne [...] BROOKEJESSICA OVIDIO ADOB: [birth year] (64 yo F)Acc No.[id number]:08/27/2024 COLON WITH MAC Patient: OVIDIO RAYMOND Provider: Lorraine Prince MD :1960 A ge:63 Y S ex:Female Date:08/27/2024 Address:[address] [place], [place] [phone] Pcp:Marleen Spain Subjective: * Chief Complaints: * S creening Assessment: * Assessment: 1. C olon cancer screening - Z12.11 (Primary) 2 . D iverticulosis of sigmoid colon - K57.30 3 . I nternal hemorrhoids - K64.8 Plan: * Procedure Codes: G 0121 COLOREC CNCR SCR;COLNSCPY NO HI [id number] INTRVL 3+YRS PTS CLNSCP [id number] RCMND FLW-UP 10 YRS DOCD Billing Information: [...] 08/27/2024 Generated for Delbert ledezma/Otis/Stas on: 1 05/13/2024 02:27 PM EST
--- NOTE | 2025-03-12 11:06 | A.OFFVIS_ITS ---
Vital Signs 03/12/25 11:43 Height 5 ft Weight 124 lb BMI 24.2 Handedness Right Intake Visit Reasons: Newprob-Left shoulder pain Intake Note: Ana is a 64 year old right hand dominant female who presents today for a evaluation of her left shoulder pain. Patient reports ongoing pain for more than 6 + months. She notices that her pain is on the posterior aspect of the shoulder and it moves to her back. Patient has a pending appointment with Dr. Tulio Mendoza for her back. Patient mentions that her pain is worse when she is laying down, over head reaching and lifting heavy items. She states that she uses a topical cream for the pain and it gives her relief for a bit but her pain comes back. Machining Technician Services: Machining Technician Present (Ifrah: [id number] ([facility] Machining Technician) ) Allergies alogliptin Allergy (Unknown, Verified 03/12/25 11:42) contipation sitagliptin (Januvia) Allergy (Unknown, Verified 03/12/25 11:42) vomiting HPI HPI Newprob-Left shoulder pain: Details: The patient is a 64-year-old right-hand dominant female who presents to the office today for evaluation of atraumatic left shoulder pain. She reports that the pain has been waxing and waning for several years but has recently over the past month or 2 become more severe. She reports roughly 3-4 years ago she attended physical therapy which did help her. At that time she was offered a cortisone injection but declined stating she wants to try physical therapy 1st. Patient reports that her pain worsens with lying down, lifting and overhead motions. [facility] Medical History Anemia Atypical chest pain Low vitamin D level Hypercalcemia Hyperlipidemia, unspecified Essential hypertension Type 2 diabetes mellitus with unspecified complications Surgical History H/O colonoscopy History of esophagogastroduodenoscopy (EGD) Hx of cervical polypectomy Family History Mother No problems noted. Father Diabetes Brother Diabetes Sister Diabetes Social History Household Members: Family Household Members Other:: daughter Alcohol intake: current Alcohol intake frequency: does not drink Patient Tobacco Use Status: Never used Tobacco e-Cigarette/Vaping Use: Never Used Review of Systems Const All systems reviewed & are unremarkable except as noted in HPI and below Physical Exam Vital Signs: BMI result Body Mass Index 24.2 Const General: cooperative, healthy appearing and no acute distress Resp Effort & Inspection: normal respiratory effort and able to speak in complete sentences Extrem Other: Left shoulder: Normal to inspection. No ecchymosis, erythema, or edema. Full shoulder ROM in all planes. Positive cross-body reach. 4/5 strength with empty can. Negative drop arm. NVI. Psych Appearance: grossly normal Mental Status: mental status grossly normal Attitude: cooperative Office Procedures AMB Joint Injection/Aspiration Joint Injection/Aspiration Primary Site: Left Shoulder Prep: site was prepped using aseptic technique, ethochloride spray was applied and injection warnings given Injected: 40 mg of, Decadron, with 3 mL of, 1% plain Lidocaine, 0.25% Bupivacaine and in the subcromial space Approach Used: posterolateral Procedure: The patient tolerated the procedure well, but had some pain with the injection and there was some relief with the local anesthesia Coding 88887 - Large joint Procedure code (CPT) selection complete Assessment & Plan Assessment & Plan (1) Painful arc syndrome of left shoulder: Code(s): M75.102 - Unspecified rotator cuff tear or rupture of left shoulder, not specified as traumatic Category: Medical Plan The patient was offered a cortisone injection in left shoulder. The patient was explained the risks, benefits, and alternatives to receiving this injection. After receiving consent for the injection, the patient had the procedure done while in the office today. The patient tolerated the procedure well with no complications. The risks, benefits, and alternatives to a corticosteroid injection were discussed with the patient, including the potential benefits of decreased inflammation and pain, improved function, and diagnostic value. Risks were reviewed, including post-injection flare, skin or fat atrophy, transient facial flushing, temporary elevation in blood glucose, bruising, and rare but serious complications such as infection, tendon weakening or rupture, and cartilage damage with repeated injections. Procedure-related discomfort and possible vasovagal symptoms were also explained. Alternatives were reviewed, including NSAIDs, physical therapy, activity modification, bracing, ice/heat, weight management, hyaluronic acid injections when appropriate, PRP or other orthobiologics, oral steroids, surgery depending on pathology, and observation. The patient verbalized understanding and elected to proceed. After receiving consent for the injection, the patient had the procedure done while in the office today. The patient tolerated the procedure well with no complications. Follow-up will be PRN, or sooner if needed X-rays of the left shoulder which were obtained while in the office today and were reviewed by me, Yari Higuera PA-C, revealed no acute fracture and dislocation. Orders: Orders XR shoulder LT min 2V Today M25.519 - Pain in unspecified shoulder Coding Level of Care Code New Pt Level 4 (06145) Add On Problem Visit Only Diagnoses Painful arc syndrome of left shoulder M75.102 CPT Codes Coding - 38918 Large joint: 38277 - Large joint ([id number])
[2025-03-12 11:43] VITALS: BMI 24.2
--- OUTSIDE RECORDS SUMMARY | 2025-03-12 14:28 | XMS_ITS | Clinical Summary ---
Author Organization [employer] Address [address] [facility] 7t [place] [address] Care Team Providers Care Electrical Development Engineer Name Role Phone Unavailable Primary Care Provider [...] Encounters Date Type Department Care Team Description 12/27/2024 12:00 PM EDT Office Visit [place] [facility] [address] [place] [address] Christine Singer Accretions on teeth (Primary Dx); Periodontal disease from Last 3 Months Social History Tobacco [...] not to disclose 2022 9:03 AM EDT Last Filed Vital Signs Vital Sign Reading Time Taken Comments Blood Pressure 135/75 12/27/2024 12:20 PM EDT Pulse 67 12/27/2024 12:20 PM EDT Temperature - - Respiratory Rate - - Oxygen Saturation - - Inhaled Oxygen Concentration - - Weight - - Height - - Body Mass Index - - Plan of Treatment Upcoming Encounters Date Type Department Care Team (Late st Contact Info) Description 07/03/2025 12:00 PM EDT Office Visit [facility] D[facility]AL [address] [place] [address] Christine Singer Health Maintenance Due Date Last Done Comments CT Colonography 1958 Colonoscopy 1958 Colorectal Cancer Screening 1958 Depression Screening 1958 Diabetes: Hemoglobin A1C 1958 FIT DNA/Cologuard 1958 FIT 1958 FOBT 1958 Lipid Panel 1958 SDOH Screening 1958 Sigmoidoscopy 1958 Diabetes: Foot Exam 1968 Eye Exam 1968 Alcohol/Substance Use Screening 1970 Hepatitis C Screening 1976 Mammogram 1998 Dental X-Ray: Bitewings 02/25/2024 02/24/20 23, 06/19/2021, 06/04/2020, Additional history exists COVID-19 Vaccine ( season) 2024 07/30/2021, 07/28/2021, 08/13/2020, Additional history exists Influenza Vaccine (#1) 2024 02/12/2021 Dental Oral Exam 06/28/2025 12/27/2024, 01/2025, 04/01/2022, Additional history exists Dental Prophylaxis 06/28/2025 12/27/2024, 0 05/08/2024, 09/13/2023, Additional history exists Tobacco Screening 12/27/2025 12/27/2024 Dental X-Ray: Full Mouth 12/29/2027 025, 06/04/2020, 04/22/2016, Additional history exists DTaP/Tdap/Td Vaccines (2 - Td or Tdap) [...] Procedure Name Priority Date/Time Associated Diagnosis Comments CASE PRESENTATION, DETAILED AND EXTENSIVE TREATMENT PLANNING Routine 12/27/2024 12:00 PM EDT PANORAMIC RADIOGRAPHIC IMAGE Routine 12/27/2024 12:00 PM EDT ORAL HYGIENE INSTRUCTIONS Routine 2024 12:00 PM EDT Full PROPHYLAXIS - ADULT Routine 12:00 PM EDT PERIODIC ORAL EVALUATION - ESTABLISHED PATIENT Routine 12/27/2024 12:00 PM EDT BITEWINGS - 4 RADIOGRAPHIC IMAGES Routine 02/23/2023 9:40 AM EST from Last 3 Months or Most Recently Relevant to Health Maintenance Insurance [place] ST[place] ADULT DENTAL - HSN FULL (MEDICAID)
--- OUTSIDE RECORDS SUMMARY | 2025-03-12 14:28 | XMS_ITS | Encounter Summary ---
Author Organization [employer] Address [address] [facility] 7t [place] [address] Care Team Providers Care Manager Merchandise Name Role Phone Unavailable Primary Care Provider [...] Description 07/03/2025 12:00 PM EDT Office Visit [place] [facility] D[facility] [address] [place] [address] Christine Singer documented as of this encounter Visit Diagnoses Not on filedocumented in this encounter
--- OUTSIDE RECORDS SUMMARY | 2025-03-12 14:28 | XMS_ITS | Encounter Summary ---
Author Organization [employer] [facility] Address [address] [facility] 7t [place] [address] Care Team Providers Care Electronics Engineering Manager Name Role Phone Unavailable Primary Care [...] Description 07/03/2025 12:00 PM EDT Office Visit [place] [facility] D[facility] [address] [place] [address] Christine Singer documented as of this encounter Visit Diagnoses Not on filedocumented in this encounter
--- OUTSIDE RECORDS SUMMARY | 2025-03-12 14:28 | XMS_ITS | Patient Health Record ---
Author Organization [facility] Address [address] [place] [address] Support Name Relationship Address Phone KIERRA CONNER Emergency Contact [address] [place], [place] [id number] OVIDIO CONNER Guarantor Unknown [phone] Care Team Providers Care Park Warden Name Role Phone Joekimi Marleen Primary Care Provider UnavailAravind Wells Unavailable [phone] Allergies No Known Allergies Results Component Value Reference Range Flag Notes Glucose, Whole Blood Reviewed date:08/27/2024 10:55:12 PM Interpretation: Performing Lab:[facility], [address] [place] [phone] Notes/Report: Glucose, Whole Blood 137 60-115 mg/dL H SC TER #: [id number] Reason For Referral No Information Medications Medication SIG (Take, Route, Frequency, Duration) Notes Start Date End Date Status Simvastatin 20 MG Tablet 1 tablet in the evening Orally Once a day Active Lantus SoloStar 100 UNIT/ML Solution Pen-injector Subcutaneous; Duration: 90 Active Vitamin B12 100 MCG Tablet 1 tablet Orally Once a day Active HumaLOG KwikPen 100 UNIT/ML Solution Pen-injector Subcutaneous; Duration: 27 Active Dulcolax (colon prep) 5 MG Tablet Delayed Release take at 3:00 p.m and 7:00p.m. Orally two tablets twice a day for one day; Duration: 1 day 04/26/2024 Active BD Pen Needle Chanell 2nd Gen 32G X 4 MM Miscellaneous ; Duration: 90 Active metFORMIN HCl 1000 MG Tablet 1 tablet with meals Orally Twice a day Active Latanoprost 0.005 % Solution Ophthalmic; Duration: 90 Active Multi Vitamin/Minerals Active Meloxicam 7.5 MG Tablet Oral; Duration: 90 Not-Taking/PRN Motrin IB 200 MG Tablet 1 tablet as need ed Orally every 6 hrs Not-Taking/AK N Senokot S 8.6-50 MG Tablet 1 tablet in the evening as needed Orally Once a day Active MiraLax (colon prep) 17 GM/SCOOP Powder 1 238Gm bottle mixed with Gatorade or Crystal Light Orally begin at 5:00 p.m. the day before the procedure; Duration: 1 day 04/26/2024 Active Losartan Potassium 50 MG Tablet Oral; Duration: 90 Active Glimepiride 4 MG Tablet 1 tablet with breakfast or the first main meal of the day Orally Once a day Not-Taking/PRN Insulin Glargine-yfgn 100 UNIT/ML Solution Pen-injector Subcutaneous; Duration: 107 Active Rosuvastatin Calcium 40 MG Tablet Oral; Duration: 90 Active Immunizations Vaccine Route Administration Date Status Comme nts Influenza Unknown 11/15/2023 Administered Social History Social History Additional Details Category Social Info Options Details Miscellaneous: Marital status: Occupation: Homemaker Section Notes: Nonsmoker; no alcohol. Came here from [facility] in 2006 Nonsmoker; no alcohol. Came here from [facility] in 2006 Nonsmoker; no alcohol. Came here from [facility] in 2006 Problems Problem Type SNOMED Code ICD Code Onset Dates Problem Status W/U Status Risk Notes Problem Colon cancer screening (898571542) Colon cancer screening (Z12.11) Active confirmed Problem Pre-procedure evaluation check (483937668) Encounter for other preprocedural examination (Z01.818) Active confirmed Problem Anemia (915077011) Anemia (D64.9) Active confirmed Vital Signs Temperature 98.0 degrees Fahrenheit 04/25/2024 Blood pressure diastolic 00 mm Hg 04/25/2024 Height 60.5 in 04/25/2024 Blood pressure systolic 000 mm Hg 04/25/2024 Weight 127 lbs 04/25/2024 BMI 24.39 kg/m2 04/25/2024 Encounters Encounter Location Date Provider Diagnosis [facility] Outpatient [address] [place], [place] [id number] 08/27/2024 Aravind Prince Colon cancer screeni ng Z12.11 ; Diverticulosis of sigmoid colon K57.30 and Internal hemorrhoids K64.8 [facility] [address] [place] [address] 04/25/2024 Aravind Prince Colon cancer screeni ng Z12.11 ; Anemia D64.9 and Encounter for other preprocedural examination Z01.818 [facility] [address] [place] [address] 04/25/2024 Aravind Prince Assessments Encounter Date Diagnosis [...] progress. 08/27/2024 Internal hemorrhoids (ICD-10 - K64.8) Plan Of Treatment Pending Test Test Name Order Date IRON + IBC (FE) 09/18/2013 IRON + IBC (FE) 02/07/2014 IRON + IBC (FE) 11/06/2013 FERRITIN 09/18/2013 FERRITIN 02/07/2014 FERRITIN 11/06/2013 CBC w DIFF 11/06/2013 CBC w DIFF 02/07/2014 CBC w DIFF 09/18/2013 CELIAC PANEL #10 09/18/2013 Future Test Test Name Order Date COLONOSCOPY 09/18/2013 COLONOSCOPY 04/25/2024 Insurance Providers Payer Name Payer Address Payer Phone Subscriber Number Group Number Insured Name Patient Relationship to Insured Coverage Start Date Coverage End Date MEDICARE OF [place] [address] HUANG HAGER [id number] OVIDIO CONNER Self - patient is the insured MEDICAID OF [facility] [address] [place] [id number] OVIDIO CONNER Self - patient is the insured Medical (General) History Medical History History ICD Code IDDM Denies LA,CVA,Lung disease,renal disease Hyperlipidemia Anemia--Hgb 11.6 and Ferriti n of 6 in 11/2012, and 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
--- OUTSIDE RECORDS SUMMARY | 2025-03-12 14:28 | XMS_ITS | Encounter Summary ---
Author Organization [employer] Address [address] [facility] 7t [place] [address] Care Team Providers Care Boat Joiner Name Role Phone Unavailable Primary Care Provider [...] Description 07/03/2025 12:00 PM EDT Office Visit [place] [facility] D[facility] [address] [place] [address] Christine Singer documented as of this encounter Visit Diagnoses Not on filedocumented in this encounter
--- OUTSIDE RECORDS SUMMARY | 2025-03-12 14:28 | XMS_ITS | Encounter Summary ---
Author Organization [employer] [facility] Address [address] [facility] 7t [place] [address] Care Team Providers Care Clinical Trial Manager Name Role Phone Unavailable Primary Care [...] Description 07/03/2025 12:00 PM EDT Office Visit [place] [facility] DENTAL [address] [place] [address] Christine Singer documented as of this encounter Visit Diagnoses Not on filedocumented in this encounter
== END 2025-03-12 12:51 | disposition home or self-care (01) ==
LOC: HO.HOS 11:01
PROVIDERS: PCP Internal Medicine; Visit Provider Physician Assistant
DX: M75.102 Unspecified rotator cuff tear or rupture of left shoulder, not specified as traumatic (principal)
CPT/HCPCS: 20610; 99214

== ENCOUNTER → 2025-03-12 11:03 | Outpatient (BNV) | payer MEDICARE, MEDICAID, SELFPAY | PROVIDERS: Visit Provider Radiology Diagnostic Radiology | DX: M19.012 Primary osteoarthritis, left shoulder (principal) | CPT/HCPCS: 73030 ==

== ENCOUNTER 2025-03-14 08:21 | Outpatient (AMB) | payer MEDICARE, MEDICAID, SELFPAY ==
--- OUTSIDE RECORDS SUMMARY | 2024-08-27 02:30 | XMS_ITS ---
Author Organization [facility] Address [address] [place] [address] Support Name Relationship Address Phone KIERRA CONNER Emergency Contact [address] [place], [place] [id number] OVIDIO CONNER Guarantor Unknown [phone] Care Team Providers Care Senior Court Office Assistant Name Role Phone Marleen Spain Primary Care Provider UnavailAravind Wells [phone] REASON FOR VISIT screening Encounters Encounter Location Date Provider Diagnosis [facility] [place] [address] [place] [phone] 08/27/2024 Aravind Prince Colon cancer scree etienne [...] BROOKEJESSICA OVIDIO ADOB: [birth year] (64 yo F)Acc No.[id number]:08/27/2024 COLON WITH MAC Patient: OVIDIO RAYMOND Provider: Lorraine Prince MD :1960 A ge:63 Y S ex:Female Date:08/27/2024 Address:[address] [place], [place] [phone] Pcp:Marleen Spain Subjective: * Chief Complaints: * S creening Assessment: * Assessment: 1. C olon cancer screening - Z12.11 (Primary) 2 . D iverticulosis of sigmoid colon - K57.30 3 . I nternal hemorrhoids - K64.8 Plan: * Procedure Codes: G 0121 COLOREC CNCR SCR;COLNSCPY NO HI [id number] INTRVL 3+YRS PTS CLNSCP [id number] RCMND FLW-UP 10 YRS DOCD Billing Information: [...] 08/27/2024 Generated for Delbert ledezma/Otis/Stas on: 1 05/15/2024 08:38 AM EST
--- NOTE | 2025-03-14 08:24 | MHC.OFFVIS ---
Intake Visit Reasons: 6m/PVR/UA(SET) Intake Note: Patient is present for 6M/PVR/UA Urology Medication:VITAMIN B12 Antibiotic Allergy:NONE Blood Thinner:NONE LAST PVR:0ML'S TODAY'S PVR:0ML'S Winch Driver Required: Yes Winch Driver Services: Winch Driver Present Winch Driver Name: Michael [id number] Allergies alogliptin Allergy (Unknown, Verified 03/14/25 09:00) contipation sitagliptin (Januvia) Allergy (Unknown, Verified 03/14/25 09:00) vomiting Medication List - Last Reconciled 03/14/25 by Rianna Gao TAWER- Basaglar KwikPen U-100 Insulin (insulin glargine) 14-16 units subcutaneously every evening; 30 days NS blood sugar diagnostic (FreeStyle Test strips) As directed blood-glucose sensor ([employer] G7 Sensor device) As directed change every 10 days blood-glucose,federal judge,cont (Dexcom G7 Senior Web Services Developer) As directed cholecalciferol (vitamin D3) 50 mcg PO DAILY cyanocobalamin (vitamin B-12) 1,000 mcg PO DAILY insulin lispro (Humalog KwikPen (U-100) Insulin) Breakfast 6 units, lunch 13 units, supper 8 units subcutaneously 3 times a day; lancets (FreeStyle Lancets) As directed 3 times a day latanoprost 0.005% 1 drp ophthalmic (eye) DAILY losartan 50 mg PO DAILY metformin 1,000 mg PO BID multivitamin 1 tab PO DAILY pen needle, diabetic (BD Chanell 2nd Gen Pen Needle) As directed once a day rosuvastatin 40 mg PO DAILY sennosides (senna) 8.6 mg PO BEDTIME PRN HPI Comments Details: Ana is a very pleasant Tamil speaking patient of Dr. Spain. She has a past medical history of diabetes, hypertension, and dyslipidemia. She presents to the office today for follow-up of her lower urinary tract symptoms. In discussion with the patient today she reports to be doing and feeling well. She does report noting episodes of urinary frequency have improved however does feel she continues to experience these lower urinary tract symptoms. She reports feeling symptoms are more bothersome when she is traveling as access to a bathroom is not always easy. In office urinalysis results reviewed with the patient today. PVR 0 mL. In review of patient's chart it does appear A1c continues to be elevated however improving. Previous workup has included a retroperitoneal ultrasound 11/18 noting bilateral kidneys with no calculi or obstruction appreciated. The urinary bladder is unremarkable. We have discussed bladder triggers and irritants and she reports she has attempted to limit these substances and has found this helpful. She otherwise denies incontinence, nocturia, hematuria, dysuria, foul smelling urine, changes to urinary stream, flank pain, fever, and or chills. She otherwise offers no other issues or concerns at this time. We did discuss the importance of management and diabetes for improvement in lower urinary tract symptoms as well as overall health and well-being. We also discussed further treatment options of lower urinary tract symptoms and risks and benefits of these treatment options. She discusses her upcoming trip to her country and will not be back until July 2025. All questions were answered. A1c:01/17 7.4, 05/21 7.1, 11/18 8.0, 04/21 8.6, 01/19 7.7 PFSH Medical History Anemia Atypical chest pain Low vitamin D level Hypercalcemia Hyperlipidemia, unspecified Essential hypertension Type 2 diabetes mellitus with unspecified complications Surgical History H/O colonoscopy History of esophagogastroduodenoscopy (EGD) Hx of cervical polypectomy Family History Mother No problems noted. Father Diabetes Brother Diabetes Sister Diabetes Social History Household Members: Family Household Members Other:: daughter Alcohol intake: current Alcohol intake frequency: does not drink Patient Tobacco Use Status: Never used Tobacco e-Cigarette/Vaping Use: Never Used Review of Systems Const All systems reviewed & are unremarkable except as noted in HPI and below Physical Exam Const General: cooperative, healthy appearing, comfortable, no acute distress, well developed, alert and awake Orientation/consciousness: patient oriented x3 Limitations: language barrier HEENT Head: Yes normal to inspection Ears: hearing grossly normal bilaterally Eyes General: appearance normal, both eyes and all related structures Neck Neck: Yes normal visual inspection and Yes trachea midline Chest Chest palpation & inspection: normal inspection of the chest Resp Effort & Inspection: normal respiratory effort and able to speak in complete sentences Cardio Rate: regular rate GI Inspection: Yes normal to inspection General: Yes no CVA tenderness Back/Spine/Pelvis Back: no CVA tenderness Skin General skin exam: no rashes or lesions noted Neuro General: patient oriented x3 Extrem General: Yes normal to inspection Psych Appearance: grossly normal and well kempt Mental Status: mental status grossly normal Speech and movement: Normal speech and movement present and Clear speech present Affect: normal affect Attitude: cooperative Thought process: Normal thought process present Thought content: Normal thought content present Insight: Fair insight present (Psych) Judgement: Fair judgement present (Psych) Office Procedures Post Void Residual Post Residual Void Post Void Residual (PVR): 0 [id number] Void Residual by ultrasound Results AMB Urinalysis, Automated UA Leukoctes 0 Bree/uL Last Edit by JAIDEN Cueva on 03/14/25 08:39 UA Nitrite Negative Last Edit by JAIDEN Cueva on 03/14/25 08:39 UA Urobilinogen 0.2 mg/dL Last Edit by JAIDEN Cueva on 03/14/25 08:39 UA Protein 0 mg/dL Last Edit by JAIDEN Cueva on 03/14/25 08:39 UA pH 5.5 Last Edit by JAIDEN Cueva on 03/14/25 08:39 UA Blood 0 Chris/uL Last Edit by JAIDEN Cueva on 03/14/25 08:39 UA Specific [place] 1.020 Last Edit by JAIDEN Cueva on 03/14/25 08:39 UA Ketone Negative Last Edit by JAIDEN Cueva on 03/14/25 08:39 UA Bilirubin 0 mg/dL Last Edit by JAIDEN Cueva on 03/14/25 08:39 UA Glucose 0 mg/dL Last Edit by JAIDEN Cueva on 03/14/25 08:39 Results Reviewed Results Reviewed: Laboratory Last Values Urine pH (Auto) 5.5 03/14/25 08:29 Specific [place] (Auto) 1.020 03/14/25 08:29 Urine Protein (Auto) 0 mg/dL 03/14/25 08:29 Glucose (UA)(Auto) 0 mg/dL 03/14/25 08:29 Urine Ketones (Auto) Negative 03/14/25 08:29 Urine Blood (Auto) 0 Chris/uL 03/14/25 08:29 Urine Nitrite (Auto) Negative 03/14/25 08:29 Urine Bilirubin (Auto) 0 mg/dL 03/14/25 08:29 Urine Urobilinogen (Auto) 0.2 mg/dL 03/14/25 08:29 Leukocyte Esterase (Auto) 0 Bree/uL 03/14/25 08:29 Assessment & Plan Assessment & Plan (1) Urinary frequency: Code(s): R35.0 - Frequency of micturition Category: Medical Plan In office urinalysis results with the patient today; as noted above. PVR 0 mL. We did discussed potential causes of lower urinary tract symptoms patient is experiencing as well as further treatment options and risks and benefits of these treatment options. All questions were answered. We did discussed the importance of management and diabetes for improvement in lower urinary tract symptoms as well as overall health and well-being. Start VESIcare 5 mg daily. We did discussed following up within the next 6-8 weeks to assess PVR however patient will be out of the country. Follow-up once available or sooner with any issues, concerns, and or questions. Orders: Orders AMB Urinalysis Automated Today Z13.9 - Encounter for screening, unspecified Medications: New solifenacin (Vesicare) 5 mg PO DAILY 90 tabs 2RF 90 days Patient Instructions: The patient had an opportunity to ask questions regarding the treatment plan. All questions were answered. Physical exam, labs, and imaging were discussed and reviewed in detail. As well as risks, benefits, and discussion of treatment choices. No major barriers to understanding were identified. The patient expressed understanding and agreement with the above treatment plan. The patient was made aware they should contact our office by phone for worsening of their current condition, the appearance of new symptoms, or with any questions or concerns. Compliance is encouraged with any medications and follow up testing that is ordered. It is a privilege to be allowed the opportunity to participate in? your urological care.? Again, if you have any questions or concerns If you have any questions or concerns please do not hesitate to contact me. The office is [phone]. This note is constructed using voice recognition software. While every effort has been made to ensure accuracy graphics production specialist errors may have been included. Yours sincerely, ELDA Magaña-MAGY Coding Level of Care Code Est Pt Level 4 (80740) Add On Problem Visit Only Diagnoses Urinary frequency R35.0 CPT Codes Post Residual Void - PVR CPT Code: 87578-Uquz Void Residual by ultrasound ([id number])
--- OUTSIDE RECORDS SUMMARY | 2025-03-14 08:38 | XMS_ITS | Clinical Summary ---
Author Organization [facility] Facility Address [address] [place] [id number] Care Team Providers Care Child Care Worker Name Role Phone Marleen Spain MD Primary [...] Encounters Date Type Department Care Team Description 03/11/2025 Orders Only [facility] [address] [place] [address] Dmitry Najera MD Type 2 diabetes mellitus with diabetic nephropathy (HCC); Essential (primary) hypertension; Chronic kidney disease, stage [...] Office Visit [facility] [address] [place] [address] Dmitry Najera MD [address] [address] Health Maintenance Due Date Last Done Comments [...] to complete this topic Insurance Medicare Medicaid [place] Medicare Medicaid [place] Care Teams Child Care Worker Relationship Specialty Start Date End Date Marleen Spain MD [address] [place] [address] [place] [address] PCP - General Internal Medicine 05/10/24
--- OUTSIDE RECORDS SUMMARY | 2025-03-14 08:38 | XMS_ITS | Encounter Summary ---
Author Organization [facility] Address [address] [address] Phone Care Team Providers Care Glove Machine Operator Name Role Phone Marleen Spain MD Primary Care Provider Encounter Details Date Type Department Care Team (Late Contact Info) Description 03/11/2025 Orders Only [facility] [address] [address] Dmitry Najera MD [address] [address] Type 2 diabetes mellitus with [...] on file documented as of this encounter Plan of Treatment Upcoming Encounters Date Type Department Care Team (Late st Contact Info) Description 05/09/2025 2:00 PM EST Office Visit [facility] [address] [place] [address] Dmitry Najera MD [address] [address] documented as of this encounter Visit Diagnoses Diagnosis Type 2 diabetes mellitus with diabetic nephropathy (HCC) Essential (primary) hypertension Chronic kidney disease, stage 2 (mild) documented in this encounter Care Teams Glove Machine Operator Relationship Specialty Start Date End Date Marleen Spain MD [address] [place] [address] [place] [address] PCP - General Internal Medicine 05/10/24 documented as of this encounter
--- OUTSIDE RECORDS SUMMARY | 2025-03-14 08:39 | XMS_ITS | Clinical Summary ---
Author Organization [employer] Address [address] [facility] 7t [place] [address] Care Team Providers Care Metal Control Worker Name Role Phone Unavailable Primary Care [...] 12/27/2024 12:00 PM EDT Office Visit [place] [facility] [address] [place] [address] Christine Singer Accretions on teeth (Primary Dx); [...] Description 07/03/2025 12:00 PM EDT Office Visit [facility] [address] [place] [address] Christine Singer Health Maintenance Due Date Last [...]
--- OUTSIDE RECORDS SUMMARY | 2025-03-14 08:39 | XMS_ITS | Encounter Summary ---
Author Organization [facility] Address [address] [facility] 7t [place] [address] Care Team Providers Care 3D Technologist Name Role Phone Unavailable Primary Care Provider [...] Description 07/03/2025 12:00 PM EDT Office Visit [place] [facility] [address] [place] [address] Christine Singer documented as of this encounter Visit Diagnoses Not on filedocumented in this encounter
--- OUTSIDE RECORDS SUMMARY | 2025-03-14 08:39 | XMS_ITS | Encounter Summary ---
Author Organization [employer] Address [address] [facility] 7t [place] [address] Care Team Providers Care Display Specialist Name Role Phone Unavailable Primary Care [...] Description 07/03/2025 12:00 PM EDT Office Visit [place] [facility] [address] [place] [address] Christine Singer documented as of this encounter Visit Diagnoses Not on filedocumented in this encounter
--- OUTSIDE RECORDS SUMMARY | 2025-03-14 08:39 | XMS_ITS | Encounter Summary ---
Author Organization [employer] Address [address] [facility] 7t [place] [address] Care Team Providers Care Management Rep Name Role Phone Unavailable Primary Care Provider [...] Description 07/03/2025 12:00 PM EDT Office Visit [place] [facility] [address] [place] [address] Christine Singer documented as of this encounter Visit Diagnoses Not on filedocumented in this encounter
--- OUTSIDE RECORDS SUMMARY | 2025-03-14 08:39 | XMS_ITS | Encounter Summary ---
Author Organization [employer] [facility] Address [address] [facility] 7t [place] [address] Care Team Providers Care Banking Assistant Name Role Phone Unavailable Primary Care Provider [...] Description 07/03/2025 12:00 PM EDT Office Visit [place] [facility] [address] [place] [address] Christine Singer documented as of this encounter Visit Diagnoses Not on filedocumented in this encounter
--- OUTSIDE RECORDS SUMMARY | 2025-03-14 08:39 | XMS_ITS | Patient Health Record ---
Author Organization [facility] Address [address] [place] [address] Support Name Relationship Address Phone KIERRA CONNER Emergency Contact [address] [place], [place] [id number] OVIDIO CONNER Guarantor Unknown [phone] Care Team Providers Care Security Intern Name Role Phone Joekimi Marleen Primary Care Provider UnavailAravind Wells Unavailable [phone] Allergies No Known Allergies Results Component Value Reference Range Flag Notes Glucose, Whole Blood Reviewed date:08/27/2024 10:55:12 PM Interpretation: Performing Lab:[facility], [address] [place] [id number] Notes/Report: Glucose, Whole Blood 137 60-115 mg/dL H SC TER #: [id number] Reason For Referral No Information Medications Medication [...] as need ed Orally every 6 hrs Not-Taking/NC N Senokot S 8.6-50 MG Tablet 1 [...] Notes: Nonsmoker; no alcohol. Came here from [facility] in 2006 Nonsmoker; no alcohol. Came here from [facility] in 2006 Nonsmoker; no alcohol. Came here from [facility] in 2006 Problems Problem Type SNOMED Code ICD Code Onset Dates Problem Status W/U Status Risk Notes Problem Colon cancer screening (673090041) Colon cancer screening (Z12.11) Active confirmed Problem Pre-procedure evaluation check (343555870) Encounter for other preprocedural examination (Z01.818) Active confirmed Problem Anemia (879795854) Anemia (D64.9) Active confirmed Vital Signs Temperature 98.0 degrees Fahrenheit 04/25/2024 Blood pressure diastolic 00 mm Hg 04/25/2024 Height 60.5 in 04/25/2024 Blood pressure systolic 000 mm Hg 04/25/2024 Weight 127 lbs 04/25/2024 BMI 24.39 kg/m2 04/25/2024 Encounters Encounter Location Date Provider Diagnosis [facility] [place] [place] Out[facility] [address] [place], [place] [phone] 08/27/2024 Aravind Prince Colon cancer screeni ng Z12.11 ; Diverticulosis of sigmoid colon K57.30 and Internal hemorrhoids K64.8 [facility] [address] [place] [address] 04/25/2024 Aravind Prince Colon cancer screeni ng Z12.11 ; Anemia D64.9 and Encounter for other preprocedural examination Z01.818 [facility] [address] [place] [address] 04/25/2024 Aravind Prince Assessments Encounter Date Diagnosis [...] Start Date Coverage End Date MEDICARE OF [place] [address] [place] [address] [id number] OVIDIO CONNER Self - patient is the insured MEDICAID OF [facility] [address] [place] [phone] [id number] VOIDIO CONNER Self - patient is the insured [...]
== END 2025-03-14 08:58 | disposition home or self-care (01) ==
LOC: HO.HUSH 08:22
PROVIDERS: PCP Internal Medicine; Visit Provider Nurse Practitioner Family
DX: Z13.9 Encounter for screening, unspecified (principal); R35.0 Frequency of micturition
CPT/HCPCS: 99214; G2211

== ENCOUNTER → 2025-03-14 08:21 | Outpatient (BNVA) | payer MEDICARE, MEDICAID, SELFPAY | PROVIDERS: PCP Internal Medicine; Visit Provider Nurse Practitioner Family | DX: R35.0 Frequency of micturition (principal) | CPT/HCPCS: 51798; 81003; 99212 ==